=== PATIENT | female | born 1945 | race Caucasian/White ===

== ENCOUNTER 2016-11-16 12:12 | Emergency (ER) | payer MEDICARE ==
[~2016-11-16] VITALS: Wt 147.9 kg
[~2016-11-16 12:12] MED LIST: AMBIEN5 MG PO; AMITRIPTYLINE25 MG PO; COUMADIN PO; Coumadin10 MG PO; ELAVIL25 MG PO; HYDROCHLOROTHIA25 MG PO; LEVOFLOXACIN500 MG PO; LISINOPRIL HCTZ1 TA1 PO; LISINOPRIL20 MG PO; MIRAPEX PO; MIRAPEX0.125 MG PO; MOTRIN800 MG PO; NEURONTIN300 MG PO; NEURONTIN600 MG PO; NEXIUM40 MG PO; NORCO 325 MG-51 TAB PO; NORVASC2.5 MG PO; PERCOCET 325 MG1 TA2 PO; PERCOCET 325 MG1 TA7 PO; PERCOCET 500 MG1 TAB PO; PROTONIX TR40 MG PO; SEPTRA DS 800 M1 TAB PO; TOPROL XL50 MG PO; VICODIN 500 MG-1 TAB PO
[2016-11-16] MEDS ORDERED: ELIQUIS5 M1 PO (12:16)
[2016-11-16 13:09] LABS: BASO % 0.3 % (0.0-1.0); EOS # 0.1 10*3/uL (0.0-0.4); HEMATOCRIT 45.6 % (37.0-47.0); HEMOGLOBIN 14.3 g/dl (12.0-16.0); IG # 0.1 10*3/uL (0.0-0.1); LYMPH # 1.9 10*3/uL (1.3-4.4); LYMPH % 16.5 % (27.0-41.0); MEAN CORPUSCULAR HGB 28.5 pg (27.0-31.0); MEAN CORPUSCULAR HGB CONC 31.4 g/dl (33.0-37.0); MEAN PLATELET VOLUME 9.3 fl (9.6-12.3); MONO % 8.7 % (3.0-9.0); NEUT # 8.3 10*3/uL (2.3-7.9); NEUT % 73.1 % (47.0-73.0); PLATELET COUNT AUTOMATED 208 10*3/uL (130-400); RED BLOOD COUNT 5.01 10*6/uL (4.10-5.10); RED CELL DISTRI WIDTH 15.2 % (0-14.5); WHITE BLOOD COUNT 11.4 10*3/uL (4.8-10.8)
[2016-11-16 15:16] VITALS: BP 157/91
[2016-11-16 15:18] LABS: BUN 26 mg/dl (7-24); CARBON DIOXIDE 27 mmol/L (21-32); CHLORIDE 109 mmol/L (98-107); EST GLOM FILT AFRICAN AMERICAN > 60 ml/min; GLUCOSE 91 mg/dL (65-99); POTASSIUM 3.7 mmol/L (3.5-5.1); SODIUM 144 mmol/L (136-145)
== END 2016-11-16 17:35 | disposition home or self-care (01) ==
LOC: ED 12:12
PROVIDERS: Emergency Medicine
DX: S20.219A Contusion of unspecified front wall of thorax, initial encounter (principal); S50.12XA Contusion of left forearm, initial encounter; S80.02XA Contusion of left knee, initial encounter; N17.9 Acute kidney failure, unspecified; Z91.041 Radiographic dye allergy status; Z79.01 Long term (current) use of anticoagulants; W18.09XA Striking against other object with subsequent fall, initial encounter; Y93.89 Activity, other specified; Y92.61 Building [any] under construction as the place of occurrence of the external cause; Y99.0 Civilian activity done for income or pay

== ENCOUNTER → 2017-10-01 | Outpatient (CLI) | payer MEDICARE ==
[~2017-10-01] MED LIST changes: +ELIQUIS5 M1 PO
== END | disposition home or self-care (01) ==
LOC: MAMMO 12:42
DX: C50.911 Malignant neoplasm of unspecified site of right female breast (principal); R92.8 Other abnormal and inconclusive findings on diagnostic imaging of breast

== ENCOUNTER 2017-10-29 11:04 | Inpatient (IN) | payer MEDICARE ==
[~2017-10-29] VITALS: Ht 165.1 cm; Wt 138.9 kg
[2017-10-29 11:07] VITALS: BP 151/73
[2017-10-29 11:28] LABS: BASO % 0.4 % (0.0-1.0); EOS # 0.2 10*3/uL (0.0-0.4); EOS % 2.7 % (1.0-4.0); HEMATOCRIT 45.5 % (37.0-47.0); HEMOGLOBIN 14.3 g/dl (12.0-16.0); LYMPH # 2.4 10*3/uL (1.3-4.4); LYMPH % 32.7 % (27.0-41.0); MEAN CELL VOLUME 90.6 fl (81.0-99.0); MEAN CORPUSCULAR HGB 28.5 pg (27.0-31.0); MEAN CORPUSCULAR HGB CONC 31.4 g/dl (33.0-37.0); MEAN PLATELET VOLUME 8.8 fl (9.6-12.3); MONO # 0.7 10*3/uL (0.1-1.0); MONO % 8.9 % (3.0-9.0); NEUT # 4.1 10*3/uL (2.3-7.9); PLATELET COUNT AUTOMATED 252 10*3/uL (130-400); RED BLOOD COUNT 5.02 10*6/uL (4.10-5.10); RED CELL DISTRI WIDTH 15.5 % (0-14.5); WHITE BLOOD COUNT 7.4 10*3/uL (4.8-10.8)
[2017-10-29 11:42] LABS: ALBUMIN 3.3 gm/dl (3.1-4.5); ALKALINE PHOSPHATASE 75 U/L (45-117); BUN 18 mg/dl (7-24); CHLORIDE 106 mmol/L (98-107); CREATININE 0.89 mg/dL (0.55-1.02); POTASSIUM 3.6 mmol/L (3.5-5.1); SGOT/AST 19 IU/L (3-35); SGPT/ALT 17 U/L (12-78); SODIUM 140 mmol/L (136-145); TOTAL PROTEIN 7.5 gm/dL (6.4-8.2); URIC ACID 6.8 mg/dL (2.6-6.0)
[2017-10-29 12:00] VITALS: BP 157/85
[2017-10-29 12:50] VITALS: BP 175/88
[2017-10-29 13:30] VITALS: BP 166/90
[2017-10-29] MEDS ORDERED: LORAZEPAM1 MG PO (13:42)
[2017-10-29 16:00] VITALS: BP 166/89
[2017-10-29 20:00] VITALS: BP 134/62
[2017-10-30] VITALS: BP 116/74
[2017-10-30 06:20] LABS: BASO % 0.3 % (0.0-1.0); EOS # 0.3 10*3/uL (0.0-0.4); EOS % 2.9 % (1.0-4.0); HEMOGLOBIN 13.3 g/dl (12.0-16.0); LYMPH # 2.1 10*3/uL (1.3-4.4); LYMPH % 23.7 % (27.0-41.0); MEAN CELL VOLUME 91.5 fl (81.0-99.0); MEAN CORPUSCULAR HGB 28.3 pg (27.0-31.0); MEAN CORPUSCULAR HGB CONC 30.9 g/dl (33.0-37.0); MEAN PLATELET VOLUME 9.1 fl (9.6-12.3); MONO # 0.8 10*3/uL (0.1-1.0); MONO % 8.8 % (3.0-9.0); NEUT # 5.6 10*3/uL (2.3-7.9); NEUT % 64.1 % (47.0-73.0); PLATELET COUNT AUTOMATED 230 10*3/uL (130-400); RED CELL DISTRI WIDTH 15.6 % (0-14.5); WHITE BLOOD COUNT 8.7 10*3/uL (4.8-10.8)
[2017-10-30 06:51] LABS: ALBUMIN 3.1 gm/dl (3.1-4.5); ALKALINE PHOSPHATASE 64 U/L (45-117); BUN 23 mg/dl (7-24); CHLORIDE 105 mmol/L (98-107); CHOLESTEROL 162 mg/dL (<200); CREATININE 0.95 mg/dL (0.55-1.02); FREE T4 1.25 ng/dl (0.76-1.46); HDL CHOLESTEROL 52 mg/dl (40-60); LDL CHOLESTEROL 90 mg/dL (9-159); PHOSPHOROUS 3.9 mg/dL (2.5-4.9); POTASSIUM 3.7 mmol/L (3.5-5.1); SGOT/AST 15 IU/L (3-35); SGPT/ALT 13 U/L (12-78); SODIUM 140 mmol/L (136-145); TOTAL PROTEIN 6.9 gm/dL (6.4-8.2); TRIGLYCERIDES 100 mg/dl (<150); VLDL CHOLESTEROL 20 mg/dL (6-40)
[2017-10-30 06:52] LABS: ACT PARTIAL THROMBO TIME 25.4 SECONDS (20.8-31.5); INTERNATIONAL NORM RATIO 1.1 (2.0-3.5)
[2017-10-30 07:59] LABS: VITAMIN D, 25-HYDROXY 6.8 ng/mL (30-100)
[2017-10-30 08:00] VITALS: BP 115/64
[2017-10-30 12:00] VITALS: BP 108/54; BP 116/66
[2017-10-30 16:00] VITALS: BP 117/35
[2017-10-30 20:00] VITALS: BP 133/98
[2017-10-31] VITALS: BP 113/55
[2017-10-31 08:00] VITALS: BP 111/66
[2017-10-31 12:00] VITALS: BP 110/62
[2017-10-31 16:00] VITALS: BP 133/81
[2017-10-31 20:00] VITALS: BP 111/52
[2017-11-01] VITALS: BP 97/58
[2017-11-01 08:00] VITALS: BP 106/53; BP 122/49
[2017-11-01] MEDS ORDERED: VITAMIN D50000 UNIT PO (12:03)
== END 2017-11-01 13:15 | disposition home or self-care (01) | DRG 556 ==
LOC: ED 11:04 → EDHOLD 12:43 → 5E 12:43
PROVIDERS: Internal Medicine; Student in an Organized Health Care Education/Training Program
DX: M25.571 Pain in right ankle and joints of right foot (principal); E44.1 Mild protein-calorie malnutrition; I48.0 Paroxysmal atrial fibrillation; G62.9 Polyneuropathy, unspecified; E66.01 Morbid (severe) obesity due to excess calories; E79.0 Hyperuricemia without signs of inflammatory arthritis and tophaceous disease; F41.9 Anxiety disorder, unspecified; Z68.43 Body mass index [BMI] 50.0-59.9, adult; G25.81 Restless legs syndrome; R26.2 Difficulty in walking, not elsewhere classified; K44.9 Diaphragmatic hernia without obstruction or gangrene; I10 Essential (primary) hypertension; G89.29 Other chronic pain; M54.42 Lumbago with sciatica, left side; M54.41 Lumbago with sciatica, right side; Z85.3 Personal history of malignant neoplasm of breast; Z96.653 Presence of artificial knee joint, bilateral; Z90.49 Acquired absence of other specified parts of digestive tract; Z90.11 Acquired absence of right breast and nipple; Z83.6 Family history of other diseases of the respiratory system; Z83.79 Family history of other diseases of the digestive system; Z91.041 Radiographic dye allergy status; Z79.899 Other long term (current) drug therapy

== ENCOUNTER 2018-08-21 00:46 | Inpatient (IN) | payer OTHER ==
[~2018-08-21] VITALS: Ht 162.5 cm; Wt 147.9 kg
[2018-08-21] VITALS (8 sets, daily range): BP systolic 117–151; BP diastolic 58–78
--- NOTE | ~2018-08-21 | EKG ---
[place], [place] ELECTROCARDIOGRAM REPORT NAME: BEVERLY AGRAWAL UNIT #: [id number] ROOM: 419 DOCTOR: LAMIN DRAFT REPORT BIRTHDATE: [birth year] [facility] Test Date: 2018-08-21 Test Time: 01:29:27 Pat Name: BEVERLY AGRAWAL Department: Room: 419 Gender: F Improvement Auditor: Saad La : 1945 Requested By: CHING GARCIA Order Number: [id number] Reading MD: Marie Oliver MD Measurements Intervals [place] Rate: 89 P: [place]: QRS: 24 QRSD: 74 T: 44 QT: 351 QTc: 428 Interpretive Statements Atrial fibrillation Baseline wander in lead(s) III,aVL,aVF Electronically Signed On 08-23-2018 4:49:37 PST by Marie Oliver MD CM:EKGRPT:ELECTROCARDIOGRAM REPORT [id number] CHING BLACK DRAFT REPORT CHING GARCIA DO
[~2018-08-21 00:46] MED LIST changes: +LORAZEPAM1 MG PO; +VITAMIN D50000 UNIT PO
[2018-08-21 01:20] LABS: BILIRUBIN NEGATIVE (NEGATIVE); BLOOD NEGATIVE (NEGATIVE); CLARITY CLEAR (CLEAR); COLOR YELLOW (YELLOW); GLUCOSE NEGATIVE (NEGATIVE); KETONE NEGATIVE (NEGATIVE); LEUKO ESTERASE NEGATIVE (NEGATIVE); NITRITE NEGATIVE (NEGATIVE); SPECIFIC GRAVITY 1.025 (1.005-1.030); UROBILINOGEN 0.2 E.U./dl (0.2-1.0)
[2018-08-21] MEDS ORDERED: OMEPRAZOLE40 MG PO (01:31)
[2018-08-21 01:33] LABS: RBC 0-2 rbc/hpf (0-2)
[2018-08-21 01:56] LABS: BASO % 0.3 % (0.0-1.0); EOS # 0.2 10*3/uL (0.0-0.4); EOS % 1.6 % (1.0-4.0); HEMATOCRIT 40.4 % (37.0-47.0); LYMPH # 2.1 10*3/uL (1.3-4.4); LYMPH % 20.8 % (27.0-41.0); MEAN CELL VOLUME 88.2 fl (81.0-99.0); MEAN CORPUSCULAR HGB 26.2 pg (27.0-31.0); MEAN CORPUSCULAR HGB CONC 29.7 g/dl (33.0-37.0); MEAN PLATELET VOLUME 8.7 fl (9.6-12.3); MONO # 0.9 10*3/uL (0.1-1.0); MONO % 8.8 % (3.0-9.0); NEUT # 6.9 10*3/uL (2.3-7.9); NEUT % 68.2 % (47.0-73.0); PLATELET COUNT AUTOMATED 266 10*3/uL (130-400); RED BLOOD COUNT 4.58 10*6/uL (4.10-5.10); RED CELL DISTRI WIDTH 15.9 % (0-14.5); WHITE BLOOD COUNT 10.1 10*3/uL (4.8-10.8)
--- NOTE | 2018-08-21 02:00 | NUR ---
PHOTOS TAKEN OF RIGHT AND LEFT ABDOMINAL FOLDS(PANNUS) NOTED TO HAVE FUNGAL RASH WITH OPEN AREAS.PHOTOS ALSO TAKEN OF RIGHT AND LEFT BUTTOCKS AREA NOTED TO HAVE STAGE 2 PRESSURE ULCERS. PT C/O RIGHT LOWER BACK PAIN WHILE REPOSITIONING, PT NOTED TO HAVE HX OF CHRONIC BACK PAIN AND STATES SHE HAS NOT TAKEN HER PERCOCET MEDICATION FOR A COUPLE DAYS.
[2018-08-21 02:13] LABS: ALBUMIN 3.2 gm/dl (3.1-4.5); ALKALINE PHOSPHATASE 71 U/L (45-117); BUN 15 mg/dl (7-24); CHLORIDE 107 mmol/L (98-107); CREATININE 1.03 mg/dL (0.55-1.02); POTASSIUM 4.3 mmol/L (3.5-5.1); SGOT/AST 22 IU/L (3-35); SGPT/ALT 20 U/L (12-78); SODIUM 145 mmol/L (136-145); TOTAL PROTEIN 6.9 gm/dL (6.4-8.2)
[2018-08-21 02:14] LABS: TROPONIN I < 0.015 ng/ml (<0.045)
--- NOTE | 2018-08-21 03:35 | NUR ---
A 73, admitted to , under the services of PEPE Calero DO with a diagnosis of ALTERED MENTAL STATUS. Chief complaint is CHANGE IN MENTAL STATUS. Patient arrived via bed from ER. Monitor applied. Initial assessment completed. Vital signs taken and recorded. PEPE CALERO DO notified of admission to the unit. Orders received. See assessment for past medical history, medications and allergies. Patient and/or family oriented to unit. [facility] visitation policy reviewed. Clothing/patient valuable form completed. CAMERON TINSLEY
--- NOTE | 2018-08-21 04:30 | NUR ---
NOTIFIED PHYSICIAN THAT PT MED REC IS UP TO DATE AND THAT PT HAS WOUNDS AND NEEDS WOUND ORDERS. AWAITING NEW ORDERS AT THIS TIME.
[2018-08-21 04:48] LABS: FREE T4 0.94 ng/dl (0.76-1.46)
[2018-08-21 04:53] LABS: THYROID STIM HORMONE (HS) 2.33 uIU/ml (0.358-4.75)
--- NOTE | 2018-08-21 06:50 | NUR ---
NOTIIFIED DR GEORGE THAT PT IS CRYING OUT IN PAIN. NEW ORDERS RECEIVED FOR 0.5 MG DILAUDID X1 NOW. WILL GIVE MEDICATION WHEN READY TO PULL FROM [facility].
[2018-08-21 07:57] LABS: VITAMIN D, 25-HYDROXY 8.9 ng/mL (30-100)
--- NOTE | 2018-08-21 15:00 | NUR ---
PT MEDICATED WITH PRN PERCOCET FOR C/O RIGHT HIP AND BACK PAIN THAT SHE RATES 05/19. JULIENNE LREACCESS.
--- NOTE | 2018-08-21 15:45 | NUR ---
PRN PERCOCET EFFECTIVE. PT RESTING IN BED WITH EYES CLOSED.
--- NOTE | 2018-08-21 20:02 | NUR ---
PT SITTING UP IN CHAIR BESIDE BED, ALERT ORIENTED AND PLEASANT WITH STAFF. ASSESSMENT COMPLETE REVEALING NO NEW ABNORMALITIES. SUPPLEMENTAL OXYGEN IN PLACE VIA NC AT 2L. NO C/O SOB. RESPIATIONS EASY. ALL NEEDS MET AT THIS TIME. WILL CONTINUE TO MONITOR. CALL LIGHT IN REACH.
--- NOTE | 2018-08-21 20:28 | NUR ---
PT REQUEST DOSAGE CHANGE FOR PERCOCET ORDER. PT STATES THAT SHE TAKES 10-325 MG AT HOME INSTEAD OF 7.5-325 MG. PHYSICIAN NOTIFIED. NEW ORDERS RECEIVED AT THIS TIME.
--- NOTE | 2018-08-21 20:40 | NUR ---
PT GIVEN PERCOCET 5-325 MG 2 TABLETS AT THIS TIME FOR BACK PAIN. WILL MONITOR FOR EFFECTIVENESS. CALL LIGHT IN REACH.
[2018-08-22] VITALS: BP 116/63
--- NOTE | 2018-08-22 00:48 | NUR ---
PT C/O BACK PAIN AT THIS TIME, RATES IT 04/19, CALLING OUT IN PAIN. 2 PERCOCET 5-325 MG TABLETS ADMINISTERED PER ORDER. WILL MONITOR FOR EFFECTIVENESS.
--- NOTE | 2018-08-22 01:48 | NUR ---
PERCOCET EFFECTIVE AT THIS TIME.
--- NOTE | 2018-08-22 05:33 | NUR ---
PT AWAKE FOR AM MEDS, PT C/O BODY ACHES, RATES IT 04/19. PERCOCET 5-325 MG (2 TABLETS) GIVEN AT THIS TIME. WILL MONITOR FOR EFFECTIVENESS. PT RESTING IN BED, ALL SAFETY MEASURES IN PLACE. CALL LIGHT IN REACH.
[2018-08-22 07:13] LABS: BASO % 0.5 % (0.0-1.0); EOS # 0.2 10*3/uL (0.0-0.4); EOS % 3.8 % (1.0-4.0); HEMATOCRIT 38.8 % (37.0-47.0); HEMOGLOBIN 10.8 g/dl (12.0-16.0); LYMPH # 1.8 10*3/uL (1.3-4.4); MEAN CELL VOLUME 90.2 fl (81.0-99.0); MEAN CORPUSCULAR HGB 25.1 pg (27.0-31.0); MEAN CORPUSCULAR HGB CONC 27.8 g/dl (33.0-37.0); MEAN PLATELET VOLUME 9.2 fl (9.6-12.3); MONO # 0.7 10*3/uL (0.1-1.0); MONO % 11.6 % (3.0-9.0); NEUT # 3.3 10*3/uL (2.3-7.9); NEUT % 54.8 % (47.0-73.0); PLATELET COUNT AUTOMATED 224 10*3/uL (130-400); RED CELL DISTRI WIDTH 16.1 % (0-14.5)
[2018-08-22 07:36] LABS: ALBUMIN 2.6 gm/dl (3.1-4.5); BUN 12 mg/dl (7-24); CHLORIDE 107 mmol/L (98-107); POTASSIUM 4.3 mmol/L (3.5-5.1); SODIUM 138 mmol/L (136-145)
[2018-08-22 07:41] LABS: ALKALINE PHOSPHATASE 64 U/L (45-117); CREATININE 0.94 mg/dL (0.55-1.02); PHOSPHOROUS 3.1 mg/dL (2.5-4.9); SGOT/AST 22 IU/L (3-35); SGPT/ALT 17 U/L (12-78); TOTAL PROTEIN 6.7 gm/dL (6.4-8.2)
[2018-08-22 08:00] VITALS: BP 118/68
--- NOTE | 2018-08-22 10:30 | NUR ---
PT MEDICATED WITH PRN PERCOCET FOR C/O RTIGHT HIP PAIN THAT SHE RATES 05/19. WILL REACCESS.
--- NOTE | 2018-08-22 11:30 | NUR ---
PRN PERCOCET EFFECTIVE PER PT. UP IN CHAIR AT PRESENT TIME.
[2018-08-22 12:00] VITALS: BP 118/73
--- NOTE | 2018-08-22 13:50 | NUR ---
PHYSICAL THERAPY PT EVAL COMPLETED TODAY ON LEVEL 4: FULL EVALUATION TO FOLLOW. RECOMMEND SKILLED PT WHILE HERE TO ADDRESS DECREASED STRENGTH, ENDURANCE, BALANCE AND THUS FUNCTIONAL MOBILTIY. PT EVAL IS MODERATE COMPLEXITY BASED ON CHART REVIEW, TEST RESULTS AND EVALUATION: 25414. D/C RECOMMENDATIONS ARE TO RETURN TO HOME WITH FAMILY SUPPORT AND HOME PT SERVICES.STATES SHE WILL NOT GO TO SNF SHE HAS SUPPORT SHE NEEDS AT HOME. THANK YOU FOR REFERRAL ADRIAN CELAYA PT
--- NOTE | 2018-08-22 14:06 | NUR ---
PT MEDICATED WITH PO PERCOCET PER PRN ORDER FOR C/O BACK AND FOOT PAIN. WILL MONITOR EFFECTIVENESS. CALL LIGHT WITHIN REACH.
--- NOTE | 2018-08-22 14:30 | NUR ---
PRN PERCECET GIVEN FOR RIGHT HIP PAIN. RATES 04/19. WILL REACCESS.
--- NOTE | 2018-08-22 15:15 | NUR ---
PRN PERCOCET EFFECTIVE PER PT.
[2018-08-22 16:00] VITALS: BP 122/66
--- NOTE | 2018-08-22 18:38 | NUR ---
PRN PERCOCET GIVEN AT THIS TIME FOR C/O BACK AND RIGHT HIP PAIN. 04/19. WILL REACCESS.
[2018-08-22 20:00] VITALS: BP 128/69
--- NOTE | 2018-08-22 20:06 | NUR ---
1929 PERCOCET EFFECTIVE. RESTING IN BED WITH HOB ELEVATED. SIDE RAILS UP X'S 2. JOSE M HEP LOCK INTACT. NO DISTRESS NOTED. 02 INTACT. PULSE OX 95%. ALERT AT PRESENT.
--- NOTE | 2018-08-22 20:53 | NUR ---
2049 C/O R SHOULDER PAIN. TOO EARLY FOR PERCOCET. TYLENOL 2 PO GIVEN FOR THIS AND ROUTINE ATIVAN. WILL MONITOR.
--- NOTE | 2018-08-22 22:05 | NUR ---
EARLIER MEDS EFFECTIVE. RESTING IN BED WITH EYES CLOSED. APPEARS TO BE SLEEPING.
--- NOTE | 2018-08-22 23:00 | NUR ---
ASSUMED CARE FOR THIS PATIENT AT THIS TIME. PATIENT IS SLEEPING AT THIS TIME. RESPERS EASY. BED LOCKED IN LOWEST POSITION, CALL ALLEN WITHIN REACH. WILL MONITOR.
[2018-08-23] VITALS: BP 137/78
--- NOTE | 2018-08-23 00:51 | NUR ---
24 HR chart check completed.
[2018-08-23 05:45] LABS: BASO % 0.3 % (0.0-1.0); EOS # 0.3 10*3/uL (0.0-0.4); EOS % 4.5 % (1.0-4.0); HEMATOCRIT 35.6 % (37.0-47.0); HEMOGLOBIN 10.4 g/dl (12.0-16.0); LYMPH # 1.6 10*3/uL (1.3-4.4); LYMPH % 26.7 % (27.0-41.0); MEAN CELL VOLUME 88.8 fl (81.0-99.0); MEAN CORPUSCULAR HGB 25.9 pg (27.0-31.0); MEAN CORPUSCULAR HGB CONC 29.2 g/dl (33.0-37.0); MEAN PLATELET VOLUME 9.3 fl (9.6-12.3); MONO # 0.8 10*3/uL (0.1-1.0); MONO % 12.8 % (3.0-9.0); NEUT # 3.3 10*3/uL (2.3-7.9); NEUT % 55.5 % (47.0-73.0); PLATELET COUNT AUTOMATED 230 10*3/uL (130-400); RED BLOOD COUNT 4.01 10*6/uL (4.10-5.10)
[2018-08-23 05:51] LABS: ALBUMIN 2.4 gm/dl (3.1-4.5); ALKALINE PHOSPHATASE 59 U/L (45-117); BUN 15 mg/dl (7-24); CHLORIDE 105 mmol/L (98-107); CREATININE 0.99 mg/dL (0.55-1.02); POTASSIUM 4.6 mmol/L (3.5-5.1); SGOT/AST 17 IU/L (3-35); SGPT/ALT 15 U/L (12-78); SODIUM 138 mmol/L (136-145); TOTAL PROTEIN 6.4 gm/dL (6.4-8.2)
--- NOTE | 2018-08-23 07:34 | NUR ---
PATIENT MEDICATED WITH PERCOCET AT THIS TIME FOR COMPLAINTS OF BACK & RIGHT SHOULDER PAIN. WILL MONITOR FOR EFFECTIVENESS.
[2018-08-23 08:00] VITALS: BP 118/64
--- NOTE | 2018-08-23 09:00 | NUR ---
Commutator Repairer in to talk to patient. Patient states lives at home with son. There are no steps in the home. Physician: marilyn Pharmacy: Home health services: none Patient's level of ADLs: MINIMAL ASSIST Patient has working utilities: all working DME: walker Follow-up physician's appointment after d/c: will be made by hospitalist nurse director upon discharge Does patient want to access PORTAL?: no Discharge plan discussed with patient, patient lives at home with son, she stated she is slow to get around, discussed with her a short term halfway for rehab prior to going home and patient declined, she stated she had been in a skilled facility in the past and didn't want to go back, patient wasn't sure she wanted any VNA at this time, case managment will follow. NAZANIN MORAN
--- NOTE | 2018-08-23 09:38 | NUR ---
PHYSICAL THERAPY Patient presented to therapy in supine with head of bed elevated and report of no complaints at this time. Patient agrees to therapy session. Patient was identified by name and . Patient performed supine to sitting at EOB with MIN A X 1. Patient performed STS with CGA X 1. Patient ambulated with W/W and CGA X 1 for 48' x 1 with verbal cues for upright posture. Patient performed seated ther ex to the bilateral LEs 2 x 10 reps each in all planes of movment in order to improve bilateral LE strength to improve patient's functional mobility. Patient performed was left in sitting position with tray table in front of patietn, call light within reach, and chair alarm attached to patient. Patient was 1:1 with this WIRE LOOP MACHINE OPERATOR for 23 minutes total. MARSHA SMITH WIRE LOOP MACHINE OPERATOR
[2018-08-23] MEDS ORDERED: VITAMIN D5000 UNI1 PO (11:35)
[2018-08-23] MEDS ORDERED: LEVAQUIN750 M1 PO (11:35)
--- NOTE | 2018-08-23 12:52 | NUR ---
Occupational Therapy referral cancelled this date. Case management phoned OTR to also cancel need for referral. Teri Aggarwal OTR/l
--- NOTE | 2018-08-23 12:55 | NUR ---
BEVERLY AGRAWAL [id number] Please refer to the physician's history and physical for past medical history, comorbid conditions, and allergies. Diagnosis: ALTERED MENTAL STATE Adelso Score: 15,AT RISK WOUND DESCRIPTIONS: Patient right and left buttocks is red and blanchable at this time. No open areas noted. Patient has satellite lesion located to abdominal folds. Foul odor noted. Patient has several partial thickness areas located to abdominal folds. Patient has two intact scabs located to abdomen patient state her dog did this to her. No drainage at time of assessment. Surface the patient is resting on: Isoflex SKIN PREVENTION RECOMMENDATION: 1. Pressure redistribution support surface as appropriate 2. Elevate heels 3. Remove boots/TEDS every shift and reapply 4. Head of bed 30 degrees as tolerated 5. Assess nutrition and hydration 6. Manage moisture 7. Avoid the use of containment devices while in bed 8. Use absorptive products on surfaces limit layers of linens on bed 9. Turn and reposition every 1-2 hours in bed and every 1 hour in chair as tolerated 10. Weight shifts every 15 minutes while up in chair 11. Offloading with pillows or device to keep heels elevated off bed 12. Monitor skin at least every shift 13. Inspect under medical devices twice a day WOUND TREATMENT RECOMMENDATIONS: Cleanse right and left buttocks with soap and water and apply hydraguard every shift and prn for soiling. Wheelchair cushion when oob. Recommend follow up for wound care in outpatient setting patient refused at this time. Cleanse abdominal folds with soap and water pat area dry then apply nystatin powder every 8 hours.
--- NOTE | 2018-08-23 13:05 | NUR ---
PATIENT REFUSING WOUND PHOTOGRAPH BECAUSE SHE IS ALREADY DRESSED.
--- NOTE | 2018-08-23 13:09 | NUR ---
Discharge instructions reviewed with patient/family. Patient receptive and verbalizes understanding. Follow-up care arranged. Written instructions given to patient/family. HEPLOCK DISCONTINUED. PICKED UP BY SON & DISCHARGED VIA WHEELCHAIR. IKER ACUÑA
--- NOTE | 2018-08-23 13:38 | NUR ---
Dr. Gauthier notified of wound care recommendations. He stated patient was already discharged.
--- NOTE | 2018-08-23 13:49 | NUR ---
PHYSICAL THERAPY CO-SIGN I approve of the Phyical Therapy notes written above. YAYA REYES PT
--- NOTE | 2018-08-23 15:00 | NUR ---
[facility] notified that patient was discharged to home today
== END 2018-08-23 13:09 | disposition home or self-care (01) | DRG 871 ==
LOC: ED 00:46 → 4E 02:53 → EDHOLD 02:53 → 4E 03:12
PROVIDERS: Emergency Medicine; Family Medicine; Internal Medicine; ADMIT Internal Medicine
DX: A41.9 Sepsis, unspecified organism (principal); G93.41 Metabolic encephalopathy; N17.0 Acute kidney failure with tubular necrosis; J18.1 Lobar pneumonia, unspecified organism; Z68.43 Body mass index [BMI] 50.0-59.9, adult; K52.9 Noninfective gastroenteritis and colitis, unspecified; R65.20 Severe sepsis without septic shock; Z91.041 Radiographic dye allergy status; F41.9 Anxiety disorder, unspecified; G89.29 Other chronic pain; M54.9 Dorsalgia, unspecified; I10 Essential (primary) hypertension; E66.01 Morbid (severe) obesity due to excess calories; G25.81 Restless legs syndrome; Z90.49 Acquired absence of other specified parts of digestive tract; Z96.653 Presence of artificial knee joint, bilateral; Z90.11 Acquired absence of right breast and nipple; Z82.3 Family history of stroke; Z84.89 Family history of other specified conditions; R73.9 Hyperglycemia, unspecified; I48.2 Chronic atrial fibrillation; K44.9 Diaphragmatic hernia without obstruction or gangrene; E55.9 Vitamin D deficiency, unspecified; G62.9 Polyneuropathy, unspecified; K57.30 Diverticulosis of large intestine without perforation or abscess without bleeding

== ENCOUNTER 2019-04-07 16:53 | Inpatient (IN) | payer OTHER ==
[~2019-04-07] VITALS: Ht 162.5 cm; Wt 147.6 kg
--- NOTE | ~2019-04-07 | EKG ---
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
--- NOTE | ~2019-04-07 | EKG ---
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
--- NOTE | ~2019-04-07 | EKG ---
[place], [place] ELECTROCARDIOGRAM REPORT NAME: BEVERLY AGRAWAL UNIT #: [id number] ROOM: 506 DOCTOR: LAMIN DRAFT REPORT BIRTHDATE: [birth year] [facility] Test Date: 2019-04-07 Test Time: 17:02:47 Pat Name: BEVERLY AGRAWAL Department: Room: 506 Gender: F Dressage Instructor: : 1945 Requested By: MONSERRAT KOCH Order Number: [id number] Reading MD: Cameron Olsen MD Measurements Intervals [place] Rate: 88 P: 52 FL: 160 QRS: 22 QRSD: 79 T: 39 QT: 378 QTc: 458 Interpretive Statements Sinus rhythm with premature atrial complex Compared to ECG 08/21/2018 01:29:27 Atrial fibrillation no longer present Electronically Signed On 04-08-2019 5:07:53 PDT by Cameron Olsen MD CM:EKGRPT:ELECTROCARDIOGRAM REPORT [id number] MONSERRAT KIMBLE DRAFT REPORT MONSERRAT KOCH MD
[2019-04-07 16:53] VITALS: BP 169/85
[~2019-04-07 16:53] MED LIST changes: +LEVAQUIN750 M1 PO; +OMEPRAZOLE40 MG PO; +VITAMIN D5000 UNI1 PO
[2019-04-07 17:20] LABS: BASO % 0.5 % (0.0-1.0); EOS # 0.3 10*3/uL (0.0-0.4); EOS % 3.7 % (1.0-4.0); HEMATOCRIT 38.1 % (37.0-47.0); HEMOGLOBIN 10.5 g/dl (12.0-16.0); LYMPH # 2.7 10*3/uL (1.3-4.4); LYMPH % 36.2 % (27.0-41.0); MEAN CELL VOLUME 86.4 fl (81.0-99.0); MEAN CORPUSCULAR HGB 23.8 pg (27.0-31.0); MEAN CORPUSCULAR HGB CONC 27.6 g/dl (33.0-37.0); MEAN PLATELET VOLUME 8.8 fl (9.6-12.3); MONO # 0.9 10*3/uL (0.1-1.0); MONO % 12.4 % (3.0-9.0); NEUT # 3.5 10*3/uL (2.3-7.9); NEUT % 46.9 % (47.0-73.0); PLATELET COUNT AUTOMATED 308 10*3/uL (130-400); RED BLOOD COUNT 4.41 10*6/uL (4.10-5.10); RED CELL DISTRI WIDTH 17.2 % (0-14.5); WHITE BLOOD COUNT 7.5 10*3/uL (4.8-10.8)
[2019-04-07 17:33] LABS: ACT PARTIAL THROMBO TIME 25.4 SECONDS (20.0-32.1)
[2019-04-07 17:37] LABS: ALKALINE PHOSPHATASE 63 U/L (45-117); BUN 14 mg/dl (7-24); CHLORIDE 106 mmol/L (98-107); POTASSIUM 3.6 mmol/L (3.5-5.1); SGOT/AST 15 IU/L (3-35); SGPT/ALT 14 U/L (12-78); SODIUM 143 mmol/L (136-145); TOTAL PROTEIN 7.4 gm/dL (6.4-8.2)
[2019-04-07 17:40] LABS: TROPONIN I < 0.015 ng/ml (<0.045)
[2019-04-07 19:40] VITALS: BP 148/91
--- NOTE | 2019-04-07 19:40 | NUR ---
Time: 1937 A 74 year old FEMALE admitted to under services of RAD COATES DO. Pt. arrived via bed from ER. Chief complaint: SHORTNESS OF BREATH. PT ORIENTED TO ROOM & CALL LIGHT. AMBULATED TO BED USING CANE. SHE COMPLAINS OF SHORTNESS OF BREATH AND BACK PAIN AT THIS TIME. 3L NC PLACED ON PATIENT. QUESTIONS ANSWERED. HEALTHY LIFESTYLES GUIDE REVIEWED. BELONGINGS ACCOUNTED FOR. DR. JARRETT IN THE ROOM AT TIME OF ADMISSION. ADMISSION ASSESSMENT COMPLETED - SEE SCREEN. ADELE MARIE
--- NOTE | 2019-04-07 20:22 | NUR ---
PRN ORDER FOR NORCO REQUESTED AND RECIEVED FOR C/O BACK PAIN SHE RATES 8/10. WILL MONITOR FOR EFFECTIVENESS OF MEDICATION
--- NOTE | 2019-04-07 22:00 | NUR ---
NORCO SEEMINGLY EFFECTIVE. PT SLEEPING IN BED WITH NO OBVIOUS SIGNS/SYMPTOMS OF PAIN OR DISCOMFORT. WILL CONTINUE TO MONITOR.
--- NOTE | 2019-04-07 23:20 | NUR ---
Pt started on breathing txs and flutter valve. Encouraged 10 breaths an hour while awake. SpO2 on 3L NC is 92%. Pt states she does not wear O2 at home.
[2019-04-08] VITALS: BP 130/73
--- NOTE | 2019-04-08 00:46 | NUR ---
PT REQUESTED AND RECIEVED [facility]. WILL MONITOR FOR EFFECTIVENESS OF MED.
--- NOTE | 2019-04-08 02:00 | NUR ---
NORCO APPARENTLY EFFECTIVE. PT RESTING WITH NO OBVIOUS SIGNS/SYMPTOMS OF PAIN OR DISCOMFORT. WILL CONTINUE TO MONITOR.
--- NOTE | 2019-04-08 04:36 | NUR ---
PT RESTING IN BED. NO SIGNS/SYMPTOMS OF PAIN OR DISCOMFORT. CALL LIGHT WITHIN REACH. WILL CONTINUE TO MONITOR.
--- NOTE | 2019-04-08 05:05 | NUR ---
PT REQUESTED AND RECIEVED PRN ORDER FOR [place] FOR COMPLAINTS OF 9/10 BACK PAIN. WILL MONITOR FOR EFEFCTIVENESS.
--- NOTE | 2019-04-08 06:46 | NUR ---
NORCO APPARENTLY EFFECTIVE. PT SLEEPING WITH NO SIGNS OF PAIN OR DISCOMFORT. CALL LIGHT WITHIN REACH. WILL CONTINUE TO MONITOR.
[2019-04-08 06:57] LABS: BASO % 0.2 % (0.0-1.0); HEMATOCRIT 36.9 % (37.0-47.0); HEMOGLOBIN 10.5 g/dl (12.0-16.0); LYMPH # 0.6 10*3/uL (1.3-4.4); LYMPH % 9.9 % (27.0-41.0); MEAN CELL VOLUME 84.6 fl (81.0-99.0); MEAN CORPUSCULAR HGB 24.1 pg (27.0-31.0); MEAN CORPUSCULAR HGB CONC 28.5 g/dl (33.0-37.0); MEAN PLATELET VOLUME 10.1 fl (9.6-12.3); MONO # 0.1 10*3/uL (0.1-1.0); MONO % 1.5 % (3.0-9.0); NEUT # 5.3 10*3/uL (2.3-7.9); NEUT % 86.9 % (47.0-73.0); NUCLEATED RED BLOOD CELL 0.5 % (0.0-0.0); PLATELET COUNT AUTOMATED 318 10*3/uL (130-400); RED BLOOD COUNT 4.36 10*6/uL (4.10-5.10); RED CELL DISTRI WIDTH 16.9 % (0-14.5); WHITE BLOOD COUNT 6.1 10*3/uL (4.8-10.8)
[2019-04-08 07:13] LABS: BUN 11 mg/dl (7-24); CHLORIDE 103 mmol/L (98-107); CREATININE 0.98 mg/dL (0.55-1.02); POTASSIUM 3.7 mmol/L (3.5-5.1); SODIUM 138 mmol/L (136-145)
[2019-04-08 07:58] LABS: VITAMIN D, 25-HYDROXY 15.7 ng/mL (30-100)
[2019-04-08 08:00] VITALS: BP 128/60
--- NOTE | 2019-04-08 11:54 | NUR ---
Salon Coordinator in to talk to patient. Patient states lives at HOME with SON. There are NO steps in the home. Physician: MYRANDA [facility]acy: [facility] Home health services: NONE Patient's level of ADLs: INDEPENDENT Patient has working utilities: YES DME: LUZ Follow-up physician's appointment after d/c: WILL BE MADE BY HOSPITALIST NURSE DIRECTOR ON DISCHARGE Does patient want to access PORTAL?: NO Discharge plan PT LIVES AT HOME WITH HER SON AND IS INDEPENDENT IN HER CARE. DENIES THAT SHE WILL HAVE NEEDS ON DISCHARGE. STATES SHE PLANS TO RETURN HOME WITH SON ON DISCHARGE. WILL CONTINUE TO FOLLOW. WILL HAVE A RIDE HOME PER PT.. NELLY PAIZ
[2019-04-08 12:00] VITALS: BP 145/70
--- NOTE | 2019-04-08 15:57 | NUR ---
NOTIFIED DR. SIMMONS THAT PATIENT WAS HAVING SEVERE BACK PAIN AFTER SITTING UP IN THE CHAIR FOR A WHILE AND HER NORCO IS NOT DUE FOR ANOTHER HOUR. DR. SIMMONS STATED SHE WILL PUT AN ORDER IN.
[2019-04-08 16:00] VITALS: BP 144/69
--- NOTE | 2019-04-08 16:16 | NUR ---
PATIENT MEDICATED W/ PRN MORPHINE 2 MG. CALL LIGHT WITHIN REACH. WILL MONITOR EFFECTIVENSS.
--- NOTE | 2019-04-08 17:03 | NUR ---
PATIENT STATED THE PRN MORPHINE HELPED A LITTLE.
--- NOTE | 2019-04-08 18:29 | NUR ---
PATIENT WAS COUGHING WHICH LED TO A SMALL EMESIS OF CLEAR MUCOUS. PRN ZOFRAN GIVEN PER ORDER. ONCE PATIENT CAUGHTER HER BREATH SHE REQUESTED HER PRN NORCO FOR PAIN. WILL MONITOR FOR EFFECTIVENESS.
[2019-04-08 20:00] VITALS: BP 143/72
--- NOTE | 2019-04-08 20:00 | NUR ---
RESTING IN BED; ALERT & ORIENTED. 02 INTACT AT 3LPM VIA NASAL CANNULA. PT. DOES NOT NORMALLY WEAR OXYGEN. LUNGS DIMINISHED BILATERALLY WITH NO COUGH NOTED AT THIS TIME. ABDOMEN OBESE WITH NORMOACTIVE BOWEL SOUNDS. LOWER EXTREMITY EDEMA NOTED. PT. VOICES NO C/O AT THIS TIME. CALL LIGHT WITHIN REACH.
--- NOTE | 2019-04-08 22:32 | NUR ---
MEDICATED WITH NORCO FOR C/O PAIN & RESTORIL FOR C/O INSOMNIA.
[2019-04-09] VITALS: BP 120/60
--- NOTE | 2019-04-09 02:00 | NUR ---
RESTING IN BED WITH EYES CLOSED; MEDICATIONS GIVEN EARLIER APPARENTLY EFFECTIVE.
--- NOTE | 2019-04-09 06:02 | NUR ---
MEDICATED WITH NORCO FOR C/O BACK PAIN & CHEST PAIN FROM COUGHING RATED AN 8/10.
[2019-04-09 06:32] LABS: BUN 20 mg/dl (7-24); CHLORIDE 105 mmol/L (98-107); CREATININE 0.96 mg/dL (0.55-1.02); POTASSIUM 4.4 mmol/L (3.5-5.1); SODIUM 140 mmol/L (136-145)
[2019-04-09 06:52] LABS: BASO % 0.1 % (0.0-1.0); HEMATOCRIT 34.9 % (37.0-47.0); HEMOGLOBIN 9.6 g/dl (12.0-16.0); LYMPH # 0.6 10*3/uL (1.3-4.4); LYMPH % 6.8 % (27.0-41.0); MEAN CELL VOLUME 85.7 fl (81.0-99.0); MEAN CORPUSCULAR HGB 23.6 pg (27.0-31.0); MEAN CORPUSCULAR HGB CONC 27.5 g/dl (33.0-37.0); MEAN PLATELET VOLUME 9.8 fl (9.6-12.3); MONO # 0.4 10*3/uL (0.1-1.0); MONO % 4.3 % (3.0-9.0); NEUT # 8.1 10*3/uL (2.3-7.9); NEUT % 88.2 % (47.0-73.0); NUCLEATED RED BLOOD CELL 0.2 % (0.0-0.0); PLATELET COUNT AUTOMATED 300 10*3/uL (130-400); RED BLOOD COUNT 4.07 10*6/uL (4.10-5.10); RED CELL DISTRI WIDTH 16.9 % (0-14.5); WHITE BLOOD COUNT 9.2 10*3/uL (4.8-10.8)
[2019-04-09 08:00] VITALS: BP 125/54
[2019-04-09 12:00] VITALS: BP 115/65
--- NOTE | 2019-04-09 12:42 | NUR ---
NORCO GIVEN FOR C/O BACK PAIN, RATES 8/10 ON PAIN SCALE. WILL MONITOR.
--- NOTE | 2019-04-09 13:46 | NUR ---
ZELALEM EFFECTIVE PER PT.
[2019-04-09 16:00] VITALS: BP 134/88
--- NOTE | 2019-04-09 16:46 | NUR ---
MOM GIVEN FOR C/O CONSTIPATION. WILL MONITOR.
[2019-04-09 20:00] VITALS: BP 150/67
--- NOTE | 2019-04-09 20:15 | NUR ---
RESTING IN BED WITH HOB SLIGHTLY ELEVATED. 02 INTACT. PULSE OX 99% ON ROOM AIR. PT. VOICES NO C/O AT THIS TIME. NO DISTRESS NOTED. CALL LIGHT WITHIN REACH.
[2019-04-10] VITALS: BP 158/69
--- NOTE | 2019-04-10 05:36 | NUR ---
MEDICATED WITH NORCO FOR C/O BACK PAIN RATED A 7/10.
[2019-04-10 06:24] LABS: BASO % 0.1 % (0.0-1.0); HEMATOCRIT 35.7 % (37.0-47.0); HEMOGLOBIN 9.8 g/dl (12.0-16.0); LYMPH # 0.7 10*3/uL (1.3-4.4); LYMPH % 7.3 % (27.0-41.0); MEAN CELL VOLUME 86.2 fl (81.0-99.0); MEAN CORPUSCULAR HGB 23.7 pg (27.0-31.0); MEAN CORPUSCULAR HGB CONC 27.5 g/dl (33.0-37.0); MEAN PLATELET VOLUME 9.9 fl (9.6-12.3); MONO # 0.4 10*3/uL (0.1-1.0); MONO % 4.1 % (3.0-9.0); NEUT # 8.3 10*3/uL (2.3-7.9); NUCLEATED RED BLOOD CELL 0.2 % (0.0-0.0); PLATELET COUNT AUTOMATED 302 10*3/uL (130-400); RED BLOOD COUNT 4.14 10*6/uL (4.10-5.10); RED CELL DISTRI WIDTH 16.9 % (0-14.5); WHITE BLOOD COUNT 9.4 10*3/uL (4.8-10.8)
[2019-04-10 08:00] VITALS: BP 156/80
[2019-04-10 12:00] VITALS: BP 152/82
[2019-04-10 16:00] VITALS: BP 145/69
--- NOTE | 2019-04-10 19:45 | NUR ---
PT TITRATED TO RA. SATS MAINTAINING 93-96% ON RA. WILL CONTINUE TO MONITOR PT NEEDED.
[2019-04-10 20:00] VITALS: BP 158/78
--- NOTE | 2019-04-10 23:15 | NUR ---
MEDICATED WITH PRN NORCO FOR C/O BACK PAIN RATED 7/10 ON A 0/10 PAIN SCALE
[2019-04-11] VITALS: BP 154/77
--- NOTE | 2019-04-11 01:22 | NUR ---
24 HR chart check completed.
--- NOTE | 2019-04-11 01:29 | NUR ---
PATIENT RESTING IN BED WITH NO S/S OF DISTRESS. PREVIOUS NORCO SEEMS EFFECTIVE
--- NOTE | 2019-04-11 01:57 | NUR ---
MEDICATED WITH PRN RESTORIL FOR C/O SLEEPLESSNESS. WILL MONITOR
--- NOTE | 2019-04-11 05:47 | NUR ---
MEDICATED WITH PRN NORCO FOR C/O PAIN. WILL MONITOR
[2019-04-11 06:37] LABS: BASO % 0.1 % (0.0-1.0); HEMATOCRIT 37.2 % (37.0-47.0); HEMOGLOBIN 10.2 g/dl (12.0-16.0); LYMPH # 0.9 10*3/uL (1.3-4.4); LYMPH % 10.8 % (27.0-41.0); MEAN CELL VOLUME 84.9 fl (81.0-99.0); MEAN CORPUSCULAR HGB 23.3 pg (27.0-31.0); MEAN CORPUSCULAR HGB CONC 27.4 g/dl (33.0-37.0); MEAN PLATELET VOLUME 9.5 fl (9.6-12.3); MONO # 0.4 10*3/uL (0.1-1.0); MONO % 5.1 % (3.0-9.0); NEUT # 6.7 10*3/uL (2.3-7.9); NUCLEATED RED BLOOD CELL 0.4 % (0.0-0.0); PLATELET COUNT AUTOMATED 321 10*3/uL (130-400); RED BLOOD COUNT 4.38 10*6/uL (4.10-5.10); RED CELL DISTRI WIDTH 16.8 % (0-14.5); WHITE BLOOD COUNT 8.1 10*3/uL (4.8-10.8)
[2019-04-11 07:07] LABS: BUN 26 mg/dl (7-24); CHLORIDE 105 mmol/L (98-107); CREATININE 0.84 mg/dL (0.55-1.02); POTASSIUM 4.5 mmol/L (3.5-5.1); SODIUM 140 mmol/L (136-145)
[2019-04-11 08:00] VITALS: BP 166/88
[2019-04-11] MEDS ORDERED: VITAMIN D5000 UNI1 PO (10:22)
[2019-04-11] MEDS ORDERED: PREDNISONE10 MG PO (10:22)
[2019-04-11] MEDS ORDERED: LEVAQUIN500 M2 PO (10:22)
--- NOTE | 2019-04-11 11:30 | NUR ---
PATIENT DISCHARGED HOME W/ SON AND GREAT-GRANDSON IN WHEELCHAIR BY STAFF WITH ALL BELONGINGS. EDUCATION AND DISCHARGE INSTRUCTIONS GIVEN. ALL QUESTIONS ANSWERED.
== END 2019-04-11 11:30 | disposition home or self-care (01) | DRG 951 ==
LOC: ED 16:53 → 5E 18:25 → EDHOLD 18:25 → 5E 18:55
PROVIDERS: Emergency Medicine; Hospitalist; Internal Medicine; ADMIT Internal Medicine
DX: Z83.79 Family history of other diseases of the digestive system (principal); A41.9 Sepsis, unspecified organism; J18.9 Pneumonia, unspecified organism; E43 Unspecified severe protein-calorie malnutrition; Z68.43 Body mass index [BMI] 50.0-59.9, adult; R73.9 Hyperglycemia, unspecified; R09.02 Hypoxemia; I10 Essential (primary) hypertension; D64.9 Anemia, unspecified; K21.9 Gastro-esophageal reflux disease without esophagitis; E66.01 Morbid (severe) obesity due to excess calories; I48.91 Unspecified atrial fibrillation; G62.9 Polyneuropathy, unspecified; M48.00 Spinal stenosis, site unspecified; F41.9 Anxiety disorder, unspecified; G89.29 Other chronic pain; M54.9 Dorsalgia, unspecified; M19.90 Unspecified osteoarthritis, unspecified site; Z66 Do not resuscitate; Z51.5 Encounter for palliative care; Z96.653 Presence of artificial knee joint, bilateral; G25.81 Restless legs syndrome; K57.30 Diverticulosis of large intestine without perforation or abscess without bleeding; E83.41 Hypermagnesemia; Z91.041 Radiographic dye allergy status; Z91.048 Other nonmedicinal substance allergy status; Z85.3 Personal history of malignant neoplasm of breast; Z79.899 Other long term (current) drug therapy; Z90.49 Acquired absence of other specified parts of digestive tract; Z90.11 Acquired absence of right breast and nipple; Z90.710 Acquired absence of both cervix and uterus; Z82.5 Family history of asthma and other chronic lower respiratory diseases

== ENCOUNTER 2019-05-01 19:18 | Inpatient (IN) | payer OTHER ==
[~2019-05-01] VITALS: Ht 162.6 cm; Wt 144.8 kg
--- NOTE | ~2019-05-01 | EKG ---
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1945 Requested By: CHING GARCIA Order Number: [id number] Reading MD: Jaspal Whelan MD Measurements Intervals [place] Rate: 107 P: [place]: QRS: 22 QRSD: 72 T: 52 QT: 329 QTc: 439 Interpretive Statements Atrial fibrillation Ventricular premature complex Abnormal R-wave progression, early transition Baseline wander in lead(s) V4 Compared to ECG 04/07/2019 22:43:37 Ventricular premature complex(es) now present Sinus rhythm no longer present Electronically Signed On 05-03-2019 4:14:06 PDT by Jaspal Whelan MD CM:EKGRPT:ELECTROCARDIOGRAM REPORT 0055 0414 CHING BLACK DRAFT REPORT CHING GARCIA DO
--- NOTE | ~2019-05-01 | EKG ---
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: : 1945 Requested By: CHING GARCIA Order Number: [id number] Reading MD: Jaspal Whelan MD Measurements Intervals [place] Rate: 115 P: [place]: QRS: 18 QRSD: 80 T: 72 QT: 310 QTc: 429 Interpretive Statements Atrial fibrillation Ventricular premature complex Abnormal R-wave progression, early transition Minimal ST depression, anterolateral leads Baseline wander in lead(s) V6 Compared to ECG 04/07/2019 22:43:37 Ventricular premature complex(es) now present ST (T wave) deviation now present Sinus rhythm no longer present Electronically Signed On 05-03-2019 4:13:43 PDT by Jaspal Whelan MD CM:EKGRPT:ELECTROCARDIOGRAM REPORT 25 0413 CHING BLACK DRAFT REPORT CHING GARCIA DO
--- NOTE | ~2019-05-01 | EKG ---
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
[2019-05-01 19:18] VITALS: BP 160/90
[~2019-05-01 19:18] MED LIST changes: +LEVAQUIN500 M2 PO; +PREDNISONE10 MG PO
[2019-05-01 19:49] LABS: BASO % 0.3 % (0.0-1.0); EOS # 0.2 10*3/uL (0.0-0.4); EOS % 3.2 % (1.0-4.0); HEMATOCRIT 41.2 % (37.0-47.0); HEMOGLOBIN 11.3 g/dl (12.0-16.0); LYMPH # 2.4 10*3/uL (1.3-4.4); LYMPH % 34.1 % (27.0-41.0); MEAN CELL VOLUME 86.6 fl (81.0-99.0); MEAN CORPUSCULAR HGB 23.7 pg (27.0-31.0); MEAN CORPUSCULAR HGB CONC 27.4 g/dl (33.0-37.0); MEAN PLATELET VOLUME 9.3 fl (9.6-12.3); MONO # 0.7 10*3/uL (0.1-1.0); MONO % 10.4 % (3.0-9.0); NEUT # 3.6 10*3/uL (2.3-7.9); NEUT % 51.7 % (47.0-73.0); PLATELET COUNT AUTOMATED 250 10*3/uL (130-400); RED BLOOD COUNT 4.76 10*6/uL (4.10-5.10); RED CELL DISTRI WIDTH 19.4 % (0-14.5); WHITE BLOOD COUNT 6.9 10*3/uL (4.8-10.8)
[2019-05-01 20:00] LABS: ACT PARTIAL THROMBO TIME 24.3 SECONDS (20.0-32.1)
[2019-05-01 20:09] LABS: ALBUMIN 2.9 gm/dl (3.1-4.5); ALKALINE PHOSPHATASE 57 U/L (45-117); BUN 15 mg/dl (7-24); CHLORIDE 108 mmol/L (98-107); CREATININE 1.02 mg/dL (0.55-1.02); POTASSIUM 3.9 mmol/L (3.5-5.1); SGOT/AST 17 IU/L (3-35); SGPT/ALT 19 U/L (12-78); SODIUM 142 mmol/L (136-145); TOTAL PROTEIN 6.6 gm/dL (6.4-8.2)
[2019-05-01 20:10] LABS: TROPONIN I < 0.015 ng/ml (<0.045)
--- NOTE | 2019-05-01 20:26 | NUR ---
PATIENT WAS ORDERED BIPAP, BUT PATIENT HAS REFUSED BIPAP AT THIS TIME. DOCTOR AWARE.
[2019-05-01 21:29] VITALS: BP 146/80
--- NOTE | 2019-05-01 21:31 | NUR ---
PT REQUEST PAIN MEDICATION FOR HER BACK.HX CHRONIC BACK PAIN.USES A WALKER AT HOME TO AMBULATE WITH.PT REPOSITIONED IN BED.
[2019-05-01 22:59] VITALS: BP 157/97
[2019-05-01 23:15] VITALS: BP 151/99
--- NOTE | 2019-05-01 23:15 | NUR ---
A 74, admitted to 5E, under the services of RANJEET Olvera DO with a diagnosis of CHF. Chief complaint is SHORTNESS OF BREATH. Patient arrived via bed from ER. Monitor applied. Initial assessment completed. Vital signs taken and recorded. RANJEET OLVERA DO notified of admission to the unit. Orders received. See assessment for past medical history, medications and allergies. Patient and/or family oriented to unit. [address] visitation policy reviewed. Clothing/patient valuable form completed. SKIN WDI. NO WOUNDS PRESENT ON ADMISSION. CHAPARRO PEREZ
--- NOTE | 2019-05-01 23:20 | NUR ---
PT REFUSING ASHLEY L[place].
--- NOTE | 2019-05-01 23:21 | NUR ---
PT DENIES ANY OPEN WOUNDS OR SORES.SCAB NOTED TO ABDOMEN.
--- NOTE | 2019-05-01 23:21 | NUR ---
PRN NORCO ADMINISTERED PRESCRIBED FOR PT C/O 05/19 CHRONIC BACK PAIN. WILL CONTINUE TO MONITOR AND REASSESS.
--- NOTE | 2019-05-02 00:01 | NUR ---
DR RENDON AWARE OF UPDATED MED REC.
--- NOTE | 2019-05-02 00:20 | NUR ---
PT ASLEEP. NO SIGNS OF DISCOMFORT OR DISTRESS NOTED AT THIS TIME.
--- NOTE | 2019-05-02 05:08 | NUR ---
PRN NORCO ADMINISTERED FOR PT C/O CHRONIC BACK PAIN RATED AN 8/10 ON THE PAIN SCALE. WILL CONTINUE TO MONITOR AND REASSESS. CALL LIGHT IN REACH.
[2019-05-02 06:25] LABS: BASO % 0.3 % (0.0-1.0); EOS # 0.2 10*3/uL (0.0-0.4); EOS % 3.7 % (1.0-4.0); HEMATOCRIT 37.5 % (37.0-47.0); HEMOGLOBIN 10.6 g/dl (12.0-16.0); LYMPH % 32.6 % (27.0-41.0); MEAN CELL VOLUME 85.6 fl (81.0-99.0); MEAN CORPUSCULAR HGB 24.2 pg (27.0-31.0); MEAN CORPUSCULAR HGB CONC 28.3 g/dl (33.0-37.0); MEAN PLATELET VOLUME 9.4 fl (9.6-12.3); MONO # 0.6 10*3/uL (0.1-1.0); MONO % 9.7 % (3.0-9.0); NEUT # 3.2 10*3/uL (2.3-7.9); NEUT % 53.5 % (47.0-73.0); PLATELET COUNT AUTOMATED 247 10*3/uL (130-400); RED BLOOD COUNT 4.38 10*6/uL (4.10-5.10); RED CELL DISTRI WIDTH 19.2 % (0-14.5)
[2019-05-02 06:32] LABS: BUN 14 mg/dl (7-24); CHLORIDE 107 mmol/L (98-107); CREATININE 1.03 mg/dL (0.55-1.02); POTASSIUM 3.6 mmol/L (3.5-5.1); SODIUM 145 mmol/L (136-145)
[2019-05-02 06:33] LABS: PHOSPHOROUS 2.8 mg/dL (2.5-4.9)
[2019-05-02 08:00] VITALS: BP 125/76
[2019-05-02 12:00] VITALS: BP 85/52
--- NOTE | 2019-05-02 12:53 | NUR ---
Manager Council in to talk to patient. Patient states lives at HOME with SON. There are NO steps in the home. Physician: MYRANDA [facility]acy: [facility] Home health services: NONE Patient's level of ADLs: INDEPENDENT Patient has working utilities: YES DME: JANNA Follow-up physician's appointment after d/c: WILL BE MADE BY HOSPITALIST NURSE DIRECTOR ON DISCHARGE Does patient want to access PORTAL?: NO Discharge plan PT LIVES AT HOME WITH HER SON AND IS INDEPENDENT IN HER CARE. DENIES SHE WILL HAVE ANY NEEDS ON DISCHARGE. STATES SHE WILL GO BACK HOME WITH HER SON ON DISCHARGE. WILL CONTINUE TO FOLLOW. WILL HAVE A RIDE HOME ON DISCH ARGE. NELLY PAIZ
[2019-05-02 14:45] VITALS: BP 101/82
[2019-05-02 20:00] VITALS: BP 96/59
--- NOTE | 2019-05-02 22:04 | NUR ---
PRN PERCOCET ADMINISTERED PRESCRIBED FOR PT C/O CHRONIC BACK PAIN RATED A 9/10 ON THE PAIN SCALE. WILL CONTINUE TO MONITOR AND REASSESS. NO OTHER COMPLAINTS AT THIS TIME. PT ASLEEP UPON ENTERING ROOM. RESPIRATIONS EASY AND NONLABORED. CALL LIGHT IN REACH.
--- NOTE | 2019-05-02 23:47 | NUR ---
PT ASLEEP AT THIS TIME. NO SIGNS OF DISCOMFORT OR DISTRESS NOTED.
[2019-05-03] VITALS: BP 114/69
--- NOTE | 2019-05-03 03:32 | NUR ---
PRN PERCOCET ADMINISTERED PRESCRIBED FOR PT C/O CHRONIC BACK PAIN RATED A 10 ON THE PAIN SCALE. WILL CONTINUE TO MONITOR AND REASSESS. CALL LIGHT IN REACH.
--- NOTE | 2019-05-03 04:26 | NUR ---
PT ASLEEP AT THIS TIME. NO SIGNS OF DISCOMFORT OR DISTRESS NOTED.
[2019-05-03 06:52] LABS: ALBUMIN 2.7 gm/dl (3.1-4.5); CREATININE 1.16 mg/dL (0.55-1.02); PHOSPHOROUS 3.3 mg/dL (2.5-4.9); POTASSIUM 3.6 mmol/L (3.5-5.1)
[2019-05-03 08:00] VITALS: BP 108/62
[2019-05-03] MEDS ORDERED: METOPROLOL SUCC50 M1 PO (09:04)
[2019-05-03] MEDS ORDERED: LASIX40 MG PO (11:39)
[2019-05-03] MEDS ORDERED: KLOR-CON M1010 ME1 PO (11:39)
--- NOTE | 2019-05-03 11:55 | NUR ---
Discharge instructions reviewed with patient/family. Patient receptive and verbalizes understanding. Follow-up care arranged. Written instructions given to patient/family. TITO CLIFTON
--- NOTE | 2019-05-03 12:36 | NUR ---
PT IS BEING DISCHARGED TO HOME TODAY. DENIES ANY NEEDS, WILL CONTINUE TO FOLLOW.
== END 2019-05-03 11:55 | disposition home or self-care (01) | DRG 291 ==
LOC: ED 19:18 → 5E 21:49 → EDHOLD 21:49 → 5E 22:38
PROVIDERS: Emergency Medicine; Internal Medicine; Registered Nurse; ADMIT Internal Medicine
DX: I11.0 Hypertensive heart disease with heart failure (principal); E43 Unspecified severe protein-calorie malnutrition; Z68.43 Body mass index [BMI] 50.0-59.9, adult; I48.0 Paroxysmal atrial fibrillation; G62.9 Polyneuropathy, unspecified; E55.9 Vitamin D deficiency, unspecified; Z66 Do not resuscitate; Z51.5 Encounter for palliative care; I50.33 Acute on chronic diastolic (congestive) heart failure; F32.9 Major depressive disorder, single episode, unspecified; J44.9 Chronic obstructive pulmonary disease, unspecified; K57.90 Diverticulosis of intestine, part unspecified, without perforation or abscess without bleeding; M19.90 Unspecified osteoarthritis, unspecified site; K21.9 Gastro-esophageal reflux disease without esophagitis; E66.01 Morbid (severe) obesity due to excess calories; G25.81 Restless legs syndrome; D64.9 Anemia, unspecified; Z96.653 Presence of artificial knee joint, bilateral; Z90.49 Acquired absence of other specified parts of digestive tract; Z90.11 Acquired absence of right breast and nipple; Z79.01 Long term (current) use of anticoagulants; Z79.899 Other long term (current) drug therapy; Z88.8 Allergy status to other drugs, medicaments and biological substances; Z91.041 Radiographic dye allergy status; Z82.5 Family history of asthma and other chronic lower respiratory diseases; Z83.79 Family history of other diseases of the digestive system

== ENCOUNTER 2019-05-09 01:33 | Inpatient (IN) | payer OTHER ==
[2019-05-09] VITALS (12 sets, daily range): BP systolic 100–147; BP diastolic 54–80
[~2019-05-09] VITALS: Ht 162.6 cm; Wt 146.3 kg
[~2019-05-09 01:33] MED LIST changes: +KLOR-CON M1010 ME1 PO; +LASIX40 MG PO; +METOPROLOL SUCC50 M1 PO
[2019-05-09 01:56] LABS: BASO % 0.4 % (0.0-1.0); EOS # 0.2 10*3/uL (0.0-0.4); EOS % 4.1 % (1.0-4.0); HEMATOCRIT 36.1 % (37.0-47.0); HEMOGLOBIN 10.2 g/dl (12.0-16.0); LYMPH # 2.3 10*3/uL (1.3-4.4); LYMPH % 43.4 % (27.0-41.0); MEAN CELL VOLUME 83.6 fl (81.0-99.0); MEAN CORPUSCULAR HGB 23.6 pg (27.0-31.0); MEAN CORPUSCULAR HGB CONC 28.3 g/dl (33.0-37.0); MEAN PLATELET VOLUME 8.4 fl (9.6-12.3); MONO # 0.6 10*3/uL (0.1-1.0); MONO % 10.3 % (3.0-9.0); NEUT # 2.2 10*3/uL (2.3-7.9); NEUT % 41.6 % (47.0-73.0); PLATELET COUNT AUTOMATED 223 10*3/uL (130-400); RED BLOOD COUNT 4.32 10*6/uL (4.10-5.10); RED CELL DISTRI WIDTH 18.4 % (0-14.5); WHITE BLOOD COUNT 5.3 10*3/uL (4.8-10.8)
[2019-05-09 02:12] LABS: ALBUMIN 2.9 gm/dl (3.1-4.5); ALKALINE PHOSPHATASE 55 U/L (45-117); BUN 18 mg/dl (7-24); CHLORIDE 108 mmol/L (98-107); CREATININE 1.03 mg/dL (0.55-1.02); POTASSIUM 3.8 mmol/L (3.5-5.1); SGOT/AST 29 IU/L (3-35); SGPT/ALT 20 U/L (12-78); SODIUM 143 mmol/L (136-145); TOTAL PROTEIN 6.6 gm/dL (6.4-8.2)
[2019-05-09 02:14] LABS: TROPONIN I < 0.015 ng/ml (<0.045)
--- NOTE | 2019-05-09 05:13 | NUR ---
A 74, admitted to , under the services of LISA Fraser DO with a diagnosis of HYPOXIA. Chief complaint is SHORTNESS OF BREATH. Patient arrived via stretcher from ER Initial assessment completed. Vital signs taken and recorded. See assessment for past medical history, medications and allergies. Patient and/or family oriented to unit. [address] visitation policy reviewed. Clothing/patient valuable form completed. SOCORRO BRAGG
--- NOTE | 2019-05-09 05:28 | NUR ---
NOTIFIED DR. GILLETTE PATIENT'S MED LIST WAS UPDATED AND THE NEED FOR ADMISSION ORDERS.
--- NOTE | 2019-05-09 08:24 | NUR ---
Zofran 4 mg given for c/o nausea.
[2019-05-09] MEDS ORDERED: METOPROLOL SUCC50 M1 PO (13:25)
--- NOTE | 2019-05-09 22:36 | NUR ---
PO PERCOCET ADMINISTERED PER PRN ORDER FOR C/O CHRONIC LOWER BACK PAIN RATED 8/10. WILL MONITOR EFFECTIVENESS. CALL LIGHT IN REACH.
[2019-05-10] VITALS: BP 107/73
[2019-05-10 01:29] LABS: BILIRUBIN NEGATIVE (NEGATIVE); BLOOD NEGATIVE (NEGATIVE); CLARITY CLEAR (CLEAR); COLOR YELLOW (YELLOW); GLUCOSE NEGATIVE (NEGATIVE); KETONE NEGATIVE (NEGATIVE); LEUKO ESTERASE NEGATIVE (NEGATIVE); NITRITE NEGATIVE (NEGATIVE); PH 5.5 (5.0-9.0); SPECIFIC GRAVITY 1.025 (1.005-1.030); UROBILINOGEN 0.2 E.U./dl (0.2-1.0)
[2019-05-10 01:43] LABS: RBC 0-2 rbc/hpf (0-2); WBC 0-2 wbc/hpf (0-5)
--- NOTE | 2019-05-10 03:16 | NUR ---
PT. GIVEN PERCOSET ORDERED FOR BACK PAIN RATED #10 ON 1-10 PAIN SCALE. BARBIE WEBSTER RN
--- NOTE | 2019-05-10 03:56 | NUR ---
EARLIER MEDICATION APPEARS EFFECTIVE. PT ASLEEP IN BED. RESPIRATIONS EASY. NO S/S OF DISTRESS NOTED. WILL MONITOR. CALL LIGHT IN REACH. BED ALARM INTACT.
--- NOTE | 2019-05-10 07:15 | NUR ---
TITRATED O2 FROM 4L/M TO 2L/M. SAT 83% ON RA. SAT 97% ON 4L/M. SAT 96-97 ON 3L/M. SAT 94-97% ON 2L/M. O2 AT 2L/M. PT STATES NO C/O SOB.
[2019-05-10 07:35] LABS: BASO % 0.3 % (0.0-1.0); EOS # 0.2 10*3/uL (0.0-0.4); EOS % 6.1 % (1.0-4.0); HEMATOCRIT 36.3 % (37.0-47.0); HEMOGLOBIN 10.1 g/dl (12.0-16.0); LYMPH # 1.3 10*3/uL (1.3-4.4); LYMPH % 33.9 % (27.0-41.0); MEAN CELL VOLUME 84.2 fl (81.0-99.0); MEAN CORPUSCULAR HGB 23.4 pg (27.0-31.0); MEAN CORPUSCULAR HGB CONC 27.8 g/dl (33.0-37.0); MEAN PLATELET VOLUME 9.8 fl (9.6-12.3); MONO # 0.5 10*3/uL (0.1-1.0); MONO % 13.3 % (3.0-9.0); NEUT # 1.8 10*3/uL (2.3-7.9); NEUT % 46.4 % (47.0-73.0); PLATELET COUNT AUTOMATED 252 10*3/uL (130-400); RED BLOOD COUNT 4.31 10*6/uL (4.10-5.10); RED CELL DISTRI WIDTH 18.5 % (0-14.5); WHITE BLOOD COUNT 3.9 10*3/uL (4.8-10.8)
[2019-05-10 07:59] LABS: ALBUMIN 2.7 gm/dl (3.1-4.5); POTASSIUM 3.6 mmol/L (3.5-5.1)
[2019-05-10 08:00] VITALS: BP 95/56
[2019-05-10 08:02] LABS: CREATININE 1.16 mg/dL (0.55-1.02); PHOSPHOROUS 3.5 mg/dL (2.5-4.9); TOTAL PROTEIN 6.3 gm/dL (6.4-8.2)
--- NOTE | 2019-05-10 08:28 | NUR ---
PT RESTING IN BED. NO DISTRESS NOTED. WILL MONITOR
--- NOTE | 2019-05-10 09:56 | NUR ---
PT REQUESTED AND GIVEN PERCOCET FOR C/O BACK PAIN. PT RATES PAIN 5/10 WILL MONITOR
--- NOTE | 2019-05-10 10:00 | NUR ---
Occupational Therapy evaluation completed on 4 with full eval to follow. Precautions include new o2 use,IV UE,walker use,low complexity level 49140 via chart review, testing and evaluation. Recommend OT per POC and discharge home with son and home health SN, OT,PT. Thank you. Teri Aggarwal OTR/L
--- NOTE | 2019-05-10 10:00 | NUR ---
PHYSICAL THERAPY Physical therapy evaluation completed. Full details and evaluation to follow. Low complexity skilled PT evaluation performed (45423). PT will work on strength, gait, endurance, and safety per POC. Recommend home with home health upon discharge. Thank you, Aye Kate,SPT Tequila Ash,PT,DPT
[2019-05-10 11:32] VITALS: BP 124/80
[2019-05-10 12:00] VITALS: BP 110/54
--- NOTE | 2019-05-10 13:37 | NUR ---
Hospitalist Nocturnist Physician in to talk to patient. Patient states lives at HOME with SON. There are NO steps in the home. Physician: MYRANDA [facility]: [facility] Home health services: NONE Patient's level of ADLs: MINIMAL ASSIST Patient has working utilities: YES DME: WALKER Follow-up physician's appointment after d/c: WILL BE MADE BY HOSPITALIST NURSE DIRECTOR ON DISCHARGE Does patient want to access PORTAL?: NO Discharge plan PT LIVES AT HOME WITH SON AND STATES SHE IS GOING HOME ON DISCHARGE. TALKED WITH PT ABOUT SKILLED STAY AND SHE REFUSES. DID AGREE TO HOME HEALTH AND STATES SHE HAS HAD [facility] IN THE PAST AND WOULD LIKE THEM AGAIN. WILL GET ORDER AND FAX REFERRAL. WILL CONTINUE TO FOLLOW. WILL HAVE A RIDE HOME PER PT.. NELLY PAIZ
--- NOTE | 2019-05-10 15:07 | NUR ---
RECEIVED A SNF ORDER ON PT. WENT TO SEE PT, SHE STATES HER KIDS WANT HER TO GO TO REHAB BEFORE COMING HOME. PT HAS REQUESTED [facility] BUT THEY DO NOT HAVE A BED AVAILABLE AND DO NOT ANTICIPATE ONE UNTIL May. TALKED TO PT ABOUT REHAB SUITES WHO WILL MAY HAVE A BED AVAILABLE ON THE . PT IS AGREEABLE TO THAT. SCHEDULER CONVEYOR INFORMED.
--- NOTE | 2019-05-10 15:12 | NUR ---
Patient is now requesting a referral to the rehab suites. Although patient has [facility] advantange and [facility] is out of network, the referral was still faxed to facility can check on any out of network benefits.
[2019-05-10 16:00] VITALS: BP 111/62
[2019-05-10 20:00] VITALS: BP 98/71
--- NOTE | 2019-05-10 20:42 | NUR ---
PT FOUND WITH NASAL CANNULA OUT OF NOSE. RN ASKED WHY PT HAD TAKEN IT OFF AND SHE SAID SHE JUST FORGOT ABOUT IT. POX ON ROOM AIR 84%. O2 APPLIED @ 2L NC. POX BACK UP TO 100%. PATIENT DENIES ANY SHORTNESS OF BREATH AND NO S/S OF DISTRESS NOTED, EVEN WITH POX OF 84%. SCHEDULED EVENING MEDS GIVEN AT THIS TIME. PO PERCOCET ALSO ADMINISTERED FOR C/O CHRONIC PAIN IN BACK RATED 9/10. WILL MONITOR EFFECTIVENESS. CALL LIGHT LEFT IN REACH.
[2019-05-11] VITALS: BP 120/67
[2019-05-11 06:53] LABS: BASO % 0.3 % (0.0-1.0); EOS # 0.2 10*3/uL (0.0-0.4); HEMATOCRIT 37.8 % (37.0-47.0); HEMOGLOBIN 10.4 g/dl (12.0-16.0); LYMPH # 1.5 10*3/uL (1.3-4.4); LYMPH % 40.1 % (27.0-41.0); MEAN CELL VOLUME 84.9 fl (81.0-99.0); MEAN CORPUSCULAR HGB 23.4 pg (27.0-31.0); MEAN CORPUSCULAR HGB CONC 27.5 g/dl (33.0-37.0); MEAN PLATELET VOLUME 9.4 fl (9.6-12.3); MONO # 0.6 10*3/uL (0.1-1.0); MONO % 15.4 % (3.0-9.0); NEUT # 1.4 10*3/uL (2.3-7.9); NEUT % 37.9 % (47.0-73.0); PLATELET COUNT AUTOMATED 260 10*3/uL (130-400); RED BLOOD COUNT 4.45 10*6/uL (4.10-5.10); RED CELL DISTRI WIDTH 18.3 % (0-14.5); WHITE BLOOD COUNT 3.7 10*3/uL (4.8-10.8)
[2019-05-11 07:26] LABS: CREATININE 1.19 mg/dL (0.55-1.02); POTASSIUM 3.6 mmol/L (3.5-5.1)
[2019-05-11 08:00] VITALS: BP 110/67
--- NOTE | 2019-05-11 08:49 | NUR ---
Patient is out of network for all three gasquet facilities, however, riya stating patient has been to [facility] in the past. She is having her benefits rechecked. Also faxed referral to [facility] where insurance is in network for review. will follow
--- NOTE | 2019-05-11 11:15 | NUR ---
[facility] reviewed patients clinicals and therapy evals. Stating patient is "too good" to be authorized by her insurance; Will discuss with patient.
--- NOTE | 2019-05-11 11:39 | NUR ---
PULSE OX ON 1L AT REST 92%, O2 REMOVED, PULSE OX CHECKED AGAIN AFTER 10 MINUTTES, PULSE OX DECREASED TO 86%. O2 PLACED ON PT AT 1LM, INCREASING TO 92%. DR. NELSON CALLED AND NOTIFIED. FULL ASSESSMENT NOT DONE, PT. IS GOING TO REHAB PRIOR TO DISCHARGE TO HOME. RN NOTIFIED.
--- NOTE | 2019-05-11 11:41 | NUR ---
TUBIGRIPS APPLIED TO BILATERAL LEGS ORDERED PT REFUSED [facility]
[2019-05-11 12:00] VITALS: BP 120/68
--- NOTE | 2019-05-11 12:05 | NUR ---
In to see patient to discuss snf VS home health therapy. Therapy is recommending home with home health. She stated she was not happy with [facility], will look at another agency in network
--- NOTE | 2019-05-11 13:15 | NUR ---
OT NOTE Pt was seen this P.M. 1:1 for 15 minute OT session. Upon arrival pt was sitting upright in the recliner. Pt identified by name and and had no complaints at this time. Pt presented to therapy with continuous 1L-O2 via NC which she remained on throughout entire session. At rest pt's SpO2 was 92% and heart rate 67 bpm. Pt completed sit to stand transfer from chair level with Ruby and use of w/w for UE support. While standing pt donned new gown with Ruby due to being unsteady without UE support. Functional mobility completed into the bathroom with CGA and use of w/w for UE support. Throughout mobility pt required verbal prompts for safety with the O2 line. Pt transferred on/off standard commode with Ruby and use of grab bar for UE support. Clothing management completed with CGA for safety. Pt then stood sink side while washing her hands with CGA. Educated pt on energy conservation techniques for increased I and enhanced safety. Pt then returned to recliner for a seated rest break. Pt's SpO2 was 88% and heart rate 79 bpm after aprox 15 seconds pt's SpO2 was 91%. Pt was left sitting upright in the recliner with call light in hand, tray table in place, and phone in reach. Continue with rec D/C plan to home with home health. DARBY Magdaleno/Mk
--- NOTE | 2019-05-11 13:27 | NUR ---
PHYSICAL THERAPY Patient seen this pm 1:1 for therapy visit and was sitting up in bedside chair upon therapist arrival. Patient identified by name / and reports no c/o's pain at this time. Patient presents with contiinuous O2-1L via NC and records SpO2 92%, HR 67 bpm. Patient transfers sit to stand from low chair surface MIN A demonstrating very slow rise. Patient amublates with use of wh walker, 20'x 1, then additional 15'x 1 from bathroom, [facility], demonstrating very slow shaji, Poor upright slouched posture and increased fatigue. Patient returned to bedside chair and remained with call light, tray table and telephone as lunch arrived. Patient SpO2 88%, HR 79 bpm and returned to near baseline within 15 seconds of seated rest. Will continue per POC as tolerated, total treatment time 16 minutes. Chadwick Goins, TUBE TESTER
--- NOTE | 2019-05-11 13:36 | NUR ---
[facility] is out of network with patients insurance. [facility] is not longer in business. [facility] is in network with patients insurance, referral faxed for review.
--- NOTE | 2019-05-11 14:50 | NUR ---
pt requested and given percocet for c/o back pain. pt rates pain 8/10 will monitor
[2019-05-11 16:00] VITALS: BP 111/65
--- NOTE | 2019-05-11 16:35 | NUR ---
PERCOCET EFFECTIVE WILL MONITOR
[2019-05-11 20:00] VITALS: BP 111/70
--- NOTE | 2019-05-11 21:07 | NUR ---
MEDICATED WITH PERCOCET/ROXICODONE FOR COMPLAINTS OF BACK PAIN. RATES 03/19 WILL CHECK EFECTIVENESS
--- NOTE | 2019-05-11 23:00 | NUR ---
PER PT MEDICATION EFFECTIVE.
[2019-05-12] VITALS: BP 124/75
--- NOTE | 2019-05-12 03:03 | NUR ---
PATIENT C/O SEVERE BACK PAIN. MEDICATED WITH PERCOCET/ROXICODONE PER EMAR. RATES PAIN 04/19. WILL CHECK EFFECTIVENESS.
--- NOTE | 2019-05-12 04:30 | NUR ---
PATIENT SLEEPING. RESPIRATIONS EASY, NON LABORED. NO SIGNS OF DISTRESS. PAIN MEDICATIN EFFECTIVE. BED IN LOWEST POSITION, CALL LIGHT WITHIN REACH. WILL CONTINUE TO MONITOR.
[2019-05-12 06:45] LABS: BASO % 0.5 % (0.0-1.0); EOS # 0.2 10*3/uL (0.0-0.4); EOS % 5.2 % (1.0-4.0); HEMATOCRIT 37.2 % (37.0-47.0); HEMOGLOBIN 10.2 g/dl (12.0-16.0); LYMPH # 2.2 10*3/uL (1.3-4.4); LYMPH % 50.8 % (27.0-41.0); MEAN CELL VOLUME 84.5 fl (81.0-99.0); MEAN CORPUSCULAR HGB 23.2 pg (27.0-31.0); MEAN CORPUSCULAR HGB CONC 27.4 g/dl (33.0-37.0); MEAN PLATELET VOLUME 9.5 fl (9.6-12.3); MONO # 0.6 10*3/uL (0.1-1.0); MONO % 13.7 % (3.0-9.0); NEUT # 1.3 10*3/uL (2.3-7.9); NEUT % 29.6 % (47.0-73.0); PLATELET COUNT AUTOMATED 269 10*3/uL (130-400); RED CELL DISTRI WIDTH 17.9 % (0-14.5); WHITE BLOOD COUNT 4.4 10*3/uL (4.8-10.8)
[2019-05-12 06:54] LABS: CREATININE 1.42 mg/dL (0.55-1.02); POTASSIUM 3.7 mmol/L (3.5-5.1)
[2019-05-12 08:00] VITALS: BP 135/81
--- NOTE | 2019-05-12 09:11 | NUR ---
MEDICATED WITH PERCOCET AND ROXICODONE PER PRN ORDER FOR COMPLAINTS OF CHRONIC BACK PAIN. RATES PAIN 02/16. WILL MONITOR FOR EFFECTIVENESS.
--- NOTE | 2019-05-12 09:20 | NUR ---
OT NOTE Pt was seen this A.M. 1:1 for 18 minute OT session. Upon arrival pt was supine in bed. Pt identified by name and and had no complaints at this time. Pt presented to therapy with continuous 2L-O2 via NC which she remained on throughout the entire session. Pt's resting SpO2 was 93%. While sitting pt was educated on energy conservation techniques for LB dressing, pt then performed with good carry over and SBA. Sit to stand completed from chair level with CGA and use of w/w for UE support. Challenged pt's static standing tolerance needed for increased I in self care tasks and functional transfers, pt was able to tolerate aprox 4 minutes at a time before sitting due to fatigue and feeling SOB. Functional mobility completed into the bathroom with CGA and use of w/w. There she transferred on/off standard commode with Ruby due to low surface. Clothing management completed with CGA and toilet hygiene completed with supervision while seated. Pt then stood sink side while washing her hands with CGA. Throughout activity pt's SpO2 was 90%. Pt was left sitting upright in the recliner with call light in hand, tray table in place, and phone in reach. Pt's resting Spo2 was 92%. Continue with rec D/C plan to home with home health. DARBY Magdaleno/Mk
--- NOTE | 2019-05-12 09:44 | NUR ---
PHYSICAL THERAPY Patient presented to therapy in sitting position with no chair alarm attached and report no pain. Patient was identified by name and on wristband. Patient gives informed consent for treatment. Patient performed sit to stand transfer with CGA X 1. Patient is on 2 liters of spO2 VIA NASAL CANULA. Patient performed ambulation with Wh Walker and CGA X 2 for 20' x 2 with one seated rest break at 20' distance and no LOB. Patient sit to stand out of low chair with with MIN A X 1. Patient's O2 SAT was recorded as 92% and pulse at 87 following 20' x 2 ambulation. Patient was left in sitting in bedside chair with 2 liters of spO2 VIA NASAL CANULA connected to wall outlet, call light within reach and NO chair alarm present. Patient was 1:1 with this CERTIFIED ADDICTION COUNSELOR for 20 minutes total. MARSAH SMITH CERTIFIED ADDICTION COUNSELOR
--- NOTE | 2019-05-12 10:34 | NUR ---
[facility] is accepting this patient, they were notified of patient being discharged to home today.
[2019-05-12 12:00] VITALS: BP 102/55
--- NOTE | 2019-05-12 14:09 | NUR ---
MEDICATED WITH PERCOCET AND ROXICODONE FOR COMPLAINTS OF CHRONIC BACK PAIN 03/19. WILL MONITOR FOR EFFECTIVENESS.
[2019-05-12] MEDS ORDERED: LASIX20 MG PO (14:10)
--- NOTE | 2019-05-12 14:50 | NUR ---
PT IS DISCHARGED TODAY TO HOME WITH [facility].
--- NOTE | 2019-05-12 15:55 | NUR ---
PHYSICAL THERAPY CO-SIGN I approve of the Physical Therapy notes written above. REGLA SEGURA PT,DPT
--- NOTE | 2019-05-12 16:00 | NUR ---
Discharge instructions reviewed with patient/family. Patient receptive and verbalizes understanding. Follow-up care arranged. Written instructions given to patient/family. IV site removed. Oxygen delivered, set up explained to pt and oxygen applied at 2l NC. Pt transported via wheelchair to [facility]. VICTORIA DUNN
--- NOTE | 2019-05-13 13:01 | NUR ---
OCCUPATIONAL THERAPY CO-SIGN I approve of the Occupational Therapy notes written above. MARIA VICTORIA NG OTR/Mk
== END 2019-05-12 16:00 | disposition home or self-care (01) | DRG 682 ==
LOC: ED 01:33 → EDHOLD 04:22 → 4E 04:22
PROVIDERS: Emergency Medicine; Student in an Organized Health Care Education/Training Program; ADMIT Family Medicine
DX: N17.0 Acute kidney failure with tubular necrosis (principal); J96.01 Acute respiratory failure with hypoxia; G93.41 Metabolic encephalopathy; I50.33 Acute on chronic diastolic (congestive) heart failure; E44.0 Moderate protein-calorie malnutrition; Z68.43 Body mass index [BMI] 50.0-59.9, adult; I11.0 Hypertensive heart disease with heart failure; K21.9 Gastro-esophageal reflux disease without esophagitis; K44.9 Diaphragmatic hernia without obstruction or gangrene; E66.01 Morbid (severe) obesity due to excess calories; Z66 Do not resuscitate; Z51.5 Encounter for palliative care; F41.9 Anxiety disorder, unspecified; Z96.653 Presence of artificial knee joint, bilateral; G89.29 Other chronic pain; I48.91 Unspecified atrial fibrillation; K57.90 Diverticulosis of intestine, part unspecified, without perforation or abscess without bleeding; G25.81 Restless legs syndrome; M19.90 Unspecified osteoarthritis, unspecified site; M54.9 Dorsalgia, unspecified; G62.9 Polyneuropathy, unspecified; J44.9 Chronic obstructive pulmonary disease, unspecified; D50.9 Iron deficiency anemia, unspecified; E55.9 Vitamin D deficiency, unspecified; Z91.041 Radiographic dye allergy status; Z91.09 Other allergy status, other than to drugs and biological substances; Z85.3 Personal history of malignant neoplasm of breast; Z87.01 Personal history of pneumonia (recurrent); Z90.49 Acquired absence of other specified parts of digestive tract; Z90.11 Acquired absence of right breast and nipple; Z90.710 Acquired absence of both cervix and uterus; Z82.5 Family history of asthma and other chronic lower respiratory diseases; Z83.79 Family history of other diseases of the digestive system; Z79.899 Other long term (current) drug therapy

== ENCOUNTER 2019-07-29 06:35 | Inpatient (IN) | payer OTHER ==
[~2019-07-29] VITALS: Ht 163 cm; Wt 147.6 kg
[~2019-07-29 06:35] MED LIST changes: +LASIX20 MG PO
[2019-07-29 06:38] VITALS: BP 147/110
[2019-07-29 07:11] LABS: BASO % 0.5 % (0.0-1.0); EOS # 0.2 10*3/uL (0.0-0.4); EOS % 3.5 % (1.0-4.0); HEMATOCRIT 38.9 % (37.0-47.0); HEMOGLOBIN 11.3 g/dl (12.0-16.0); LYMPH % 30.6 % (27.0-41.0); MEAN CELL VOLUME 84.9 fl (81.0-99.0); MEAN CORPUSCULAR HGB 24.7 pg (27.0-31.0); MEAN PLATELET VOLUME 9.2 fl (9.6-12.3); MONO # 0.7 10*3/uL (0.1-1.0); MONO % 10.4 % (3.0-9.0); NEUT # 3.6 10*3/uL (2.3-7.9); NEUT % 54.7 % (47.0-73.0); PLATELET COUNT AUTOMATED 286 10*3/uL (130-400); RED BLOOD COUNT 4.58 10*6/uL (4.10-5.10); RED CELL DISTRI WIDTH 17.1 % (0-14.5); WHITE BLOOD COUNT 6.6 10*3/uL (4.8-10.8)
[2019-07-29 07:27] LABS: ALKALINE PHOSPHATASE 65 U/L (45-117); BUN 16 mg/dl (7-24); CHLORIDE 108 mmol/L (98-107); CREATININE 1.06 mg/dL (0.55-1.02); POTASSIUM 3.8 mmol/L (3.5-5.1); SGOT/AST 24 IU/L (3-35); SGPT/ALT 19 U/L (12-78); SODIUM 143 mmol/L (136-145); TOTAL PROTEIN 7.4 gm/dL (6.4-8.2)
[2019-07-29 07:29] LABS: TROPONIN I < 0.015 ng/ml (<0.045)
[2019-07-29 09:25] VITALS: BP 154/88
--- NOTE | 2019-07-29 09:43 | NUR ---
PT STABLE AND READY FOR TRANSPORT TO INPATIENT BED.
[2019-07-29 10:20] VITALS: BP 142/86; BP 148/86
--- NOTE | 2019-07-29 10:20 | NUR ---
A 74, admitted to , under the services of PEPE Calero DO with a diagnosis of COPD EXACERBATION. Chief complaint is SHORTNESS OF BREATH. Patient arrived via ambulatory from ER. Monitor applied. Initial assessment completed. Vital signs taken and recorded. PEPE CALERO DO notified of admission to the unit. Orders received. See assessment for past medical history, medications and allergies. Patient and/or family oriented to unit. [facility] visitation policy reviewed. Clothing/patient valuable form completed. NAEEM POLO
[2019-07-29] MEDS ORDERED: PERCOCET 10-321 EACH PO (10:36)
[2019-07-29] MEDS ORDERED: POTASSIUM CHLO20 ME4 PO (10:38)
[2019-07-29] MEDS ORDERED: PRAMIPEXOLE0.125 MG PO (10:40)
[2019-07-29 11:09] LABS: BILIRUBIN NEGATIVE (NEGATIVE); BLOOD TRACE-INTACT (NEGATIVE); CLARITY SL CLOUDY (CLEAR); COLOR YELLOW (YELLOW); GLUCOSE NEGATIVE (NEGATIVE); KETONE NEGATIVE (NEGATIVE); LEUKO ESTERASE NEGATIVE (NEGATIVE); NITRITE NEGATIVE (NEGATIVE); PH 5.5 (5.0-9.0); SPECIFIC GRAVITY 1.025 (1.005-1.030); UROBILINOGEN 0.2 E.U./dl (0.2-1.0)
[2019-07-29 11:22] LABS: BACTERIA 2+; MUCOUS 2+
--- NOTE | 2019-07-29 11:38 | NUR ---
FLUTTER INSTRUCT X10 BREATHS. WILL CONTINUE ON OWN
[2019-07-29 12:00] VITALS: BP 142/86
[2019-07-29 16:00] VITALS: BP 126/78
--- NOTE | 2019-07-29 19:37 | NUR ---
CALLED AND SPOKE TO DR. SUGGS, ADVISED OF AMOUNT OF TYLENOL WITH CURRENT DOSE OF PERCOCET, OF 3900 MG TYLENOL, HE VERSED HE WILL REVIEW AND CHANGE.
[2019-07-29 20:00] VITALS: BP 106/55
--- NOTE | 2019-07-29 21:38 | NUR ---
ATIVAN GIVEN PER PATIENT REQUEST FOR COMPLAINTS OF ANXIETY. WILL ASSESS EFFECTIVENESS.
--- NOTE | 2019-07-29 22:41 | NUR ---
ATIVAN EFFECTIVE PER PATIENT.
[2019-07-30] VITALS: BP 94/56
--- NOTE | 2019-07-30 02:47 | NUR ---
Patient resting quietly with no c/o discomfort. Respirations easy and regular. Vital signs stable. No overt distress. MARY MCCRAY
[2019-07-30 06:21] LABS: BASO % 0.1 % (0.0-1.0); HEMATOCRIT 37.3 % (37.0-47.0); HEMOGLOBIN 10.9 g/dl (12.0-16.0); LYMPH # 1.1 10*3/uL (1.3-4.4); LYMPH % 14.9 % (27.0-41.0); MEAN CORPUSCULAR HGB 24.5 pg (27.0-31.0); MEAN CORPUSCULAR HGB CONC 29.2 g/dl (33.0-37.0); MEAN PLATELET VOLUME 9.4 fl (9.6-12.3); MONO # 0.3 10*3/uL (0.1-1.0); MONO % 3.3 % (3.0-9.0); NEUT # 6.1 10*3/uL (2.3-7.9); NEUT % 80.9 % (47.0-73.0); PLATELET COUNT AUTOMATED 285 10*3/uL (130-400); RED BLOOD COUNT 4.44 10*6/uL (4.10-5.10); RED CELL DISTRI WIDTH 17.2 % (0-14.5); WHITE BLOOD COUNT 7.6 10*3/uL (4.8-10.8)
[2019-07-30 07:15] LABS: CREATININE 1.3 mg/dL (0.55-1.02); FREE T4 1.01 ng/dl (0.76-1.46); PHOSPHOROUS 2.1 mg/dL (2.5-4.9); POTASSIUM 4.1 mmol/L (3.5-5.1); TOTAL PROTEIN 7.3 gm/dL (6.4-8.2)
[2019-07-30 07:20] LABS: THYROID STIM HORMONE (HS) 1.06 uIU/ml (0.358-4.75)
[2019-07-30 07:43] LABS: VITAMIN D, 25-HYDROXY 26.4 ng/mL (30-100)
[2019-07-30 08:00] VITALS: BP 110/58; BP 111/58
--- NOTE | 2019-07-30 09:46 | NUR ---
DR. SIMMS NOTIFIED OF CONSULT AND IN TO SEE THE PATIENT.
--- NOTE | 2019-07-30 11:51 | NUR ---
MEDICATED WITH PRN IV ZOFRAN FOR NAUSEA/BELCHING.
[2019-07-30 12:00] VITALS: BP 114/66
--- NOTE | 2019-07-30 12:45 | NUR ---
PRN IV ZOFRAN EFFECTIVE FOR NAUSEA, PER PATIENT.
[2019-07-30 16:00] VITALS: BP 113/65
--- NOTE | 2019-07-30 19:55 | NUR ---
PATIENT STATED HER SCHEDULED DOSE OF PERCOCET WAS MAKING HER "SLEEPY". PATIENT STATED SHE WANTED TO "SKIP" HER 8PM DOSE TONIGHT OF PERCOCET.
[2019-07-30 20:00] VITALS: BP 103/59
--- NOTE | 2019-07-30 22:17 | NUR ---
24 HR chart check completed.
[2019-07-31] VITALS: BP 117/63
--- NOTE | 2019-07-31 06:32 | NUR ---
ZOFRAN GIVEN PER PATIENT REQUEST FOR COMPLAINTS OF NAUSEA. WILL ASSESS EFFECTIVENESS.
[2019-07-31 06:35] LABS: BASO % 0.1 % (0.0-1.0); HEMATOCRIT 39.4 % (37.0-47.0); HEMOGLOBIN 11.3 g/dl (12.0-16.0); LYMPH # 1.2 10*3/uL (1.3-4.4); LYMPH % 9.5 % (27.0-41.0); MEAN CELL VOLUME 86.2 fl (81.0-99.0); MEAN CORPUSCULAR HGB 24.7 pg (27.0-31.0); MEAN CORPUSCULAR HGB CONC 28.7 g/dl (33.0-37.0); MEAN PLATELET VOLUME 9.5 fl (9.6-12.3); MONO # 0.5 10*3/uL (0.1-1.0); NEUT # 10.7 10*3/uL (2.3-7.9); NEUT % 85.8 % (47.0-73.0); PLATELET COUNT AUTOMATED 338 10*3/uL (130-400); RED BLOOD COUNT 4.57 10*6/uL (4.10-5.10); RED CELL DISTRI WIDTH 17.4 % (0-14.5); WHITE BLOOD COUNT 12.5 10*3/uL (4.8-10.8)
--- NOTE | 2019-07-31 06:55 | NUR ---
DALTONFRAN EFFECTIVE PER PATIENT. RESTING IN BED. CALL LIGHT WITHIN REACH.
[2019-07-31 07:03] LABS: CREATININE 1.32 mg/dL (0.55-1.02); POTASSIUM 4.9 mmol/L (3.5-5.1)
[2019-07-31 12:00] VITALS: BP 118/68
[2019-07-31 16:00] VITALS: BP 124/63
[2019-07-31 20:00] VITALS: BP 114/77
[2019-08-01] VITALS: BP 112/77
--- NOTE | 2019-08-01 01:03 | NUR ---
24 HR chart check completed.
[2019-08-01 06:23] LABS: HEMATOCRIT 37.8 % (37.0-47.0); HEMOGLOBIN 10.5 g/dl (12.0-16.0); LYMPH % 10.6 % (27.0-41.0); MEAN CELL VOLUME 86.9 fl (81.0-99.0); MEAN CORPUSCULAR HGB 24.1 pg (27.0-31.0); MEAN CORPUSCULAR HGB CONC 27.8 g/dl (33.0-37.0); MONO # 0.4 10*3/uL (0.1-1.0); MONO % 3.8 % (3.0-9.0); NEUT # 7.9 10*3/uL (2.3-7.9); PLATELET COUNT AUTOMATED 305 10*3/uL (130-400); RED BLOOD COUNT 4.35 10*6/uL (4.10-5.10); RED CELL DISTRI WIDTH 17.2 % (0-14.5); WHITE BLOOD COUNT 9.3 10*3/uL (4.8-10.8)
[2019-08-01 06:28] LABS: CREATININE 1.35 mg/dL (0.55-1.02); POTASSIUM 5.5 mmol/L (3.5-5.1)
--- NOTE | 2019-08-01 07:00 | NUR ---
ARRIVED ON SHIFT, INTRODUCED TO PATIENT, NO NEEDS VOICED AT THIS TIME. WHITE BOARD UPDATED.
[2019-08-01 08:00] VITALS: BP 108/64
--- NOTE | 2019-08-01 08:27 | NUR ---
Shift chart check completed.
--- NOTE | 2019-08-01 09:00 | NUR ---
Doughnut Dough Mixer in to talk to patient. Patient states lives at home with her son. There are no steps in the home. Physician: Dr. Ayden Bryant [facility] health services: [facility] Patient's level of ADLs: MINIMAL ASSIST Patient has working utilities: yes DME: cane, walker, O2 @ 2L nc, portable O2 tanks, O2 supplier [employer] Follow-up physician's appointment after d/c: will be made by the hospitalist nurse director upon discharge Does patient want to access PORTAL?: no Discharge plan discussed with patient. She lives at home with her son. She is independent in her ADLs and uses a walker for ambulation. She would like a new walker if possible. Notified hospitalist nurse director. Discussed home health care services and she is unsure if she needs home health at this time but has had [facility] in the past and would like them again if needed. When medically stable she will be discharged to home. Her son will provide transportation on discharge. REGLA MONROY
[2019-08-01 12:00] VITALS: BP 112/67
--- NOTE | 2019-08-01 14:44 | NUR ---
PATIENT C/O NAUSEA MEDICATED WITH ZOFRAN ORDERED PRN.
--- NOTE | 2019-08-01 15:54 | NUR ---
PATIENT C/O CONSTIPATION, REQUESTED SOMETHING FOR BOWELS MEDICATED WITH PO DULCOLAX
[2019-08-01 16:00] VITALS: BP 106/77
[2019-08-01 20:00] VITALS: BP 119/67
[2019-08-02] VITALS: BP 148/81
--- NOTE | 2019-08-02 00:45 | NUR ---
PATIENT CRYING WITH SEVERE ABDOMINAL PAIN AND NAUSEA. SMALL EMESIS OF BLOOD. DR. RUTH NOTIFIED AND HERE TO SEE PATIENT. MEDICATED WITH IV ZOFRAN AT THIS TIME.
--- NOTE | 2019-08-02 01:20 | NUR ---
PATIENT MEDICATED WITH IV PROTONIX AND IV FLUID BOLUS OF 0.45 NORMAL SALINE 500CC. RESTING IN BED AT THIS TIME WITH NO FURTHER COMPLAINTS.
--- NOTE | 2019-08-02 03:12 | NUR ---
24 HR chart check completed.
--- NOTE | 2019-08-02 03:51 | NUR ---
[facility]OOD BANK CALLED AND SAID THEY HAD A UNIT OF [facility] ON HOLD FOR PATIENT IF NEEDED.
[2019-08-02 06:53] LABS: HEMATOCRIT 33.5 % (37.0-47.0); HEMOGLOBIN 9.6 g/dl (12.0-16.0); LYMPH % 19.9 % (27.0-41.0); MEAN CORPUSCULAR HGB 24.9 pg (27.0-31.0); MEAN CORPUSCULAR HGB CONC 28.7 g/dl (33.0-37.0); MEAN PLATELET VOLUME 9.1 fl (9.6-12.3); MONO # 1.1 10*3/uL (0.1-1.0); MONO % 10.7 % (3.0-9.0); NEUT # 6.9 10*3/uL (2.3-7.9); NEUT % 68.9 % (47.0-73.0); PLATELET COUNT AUTOMATED 264 10*3/uL (130-400); RED BLOOD COUNT 3.85 10*6/uL (4.10-5.10); RED CELL DISTRI WIDTH 17.5 % (0-14.5); WHITE BLOOD COUNT 10.1 10*3/uL (4.8-10.8)
--- NOTE | 2019-08-02 07:15 | NUR ---
ARRIVED ON SHIFT, INTRODUCED TO PATIENT, WHITE BOARD UPDATED, NO NEEDS VOICED AT THIS TIME. REPORT RECEIVED.
[2019-08-02 07:24] LABS: CREATININE 1.28 mg/dL (0.55-1.02)
[2019-08-02 07:26] LABS: POTASSIUM 4.5 mmol/L (3.5-5.1)
[2019-08-02] MEDS ORDERED: DOXYCYCLINE100 M3 PO (09:10)
[2019-08-02] MEDS ORDERED: MUCINEX ER600 MG PO (09:10)
[2019-08-02] MEDS ORDERED: PREDNISONE10 MG PO (09:10)
--- NOTE | 2019-08-02 09:33 | NUR ---
Shift chart check completed.
--- NOTE | 2019-08-02 10:37 | NUR ---
Discharge instructions reviewed with patient/family. Patient receptive and verbalizes understanding. Follow-up care arranged. Written instructions given to patient/family, IV and telemetry removed, left via w/c accompanied by staff. NAEEM POLO
--- NOTE | 2019-08-02 10:45 | NUR ---
Faxed wheelchair prescription to [facility]
--- NOTE | 2019-08-02 11:37 | NUR ---
Spoke to Estrella Anthony from [facility]. Walker to be delivered on .
== END 2019-08-02 10:37 | disposition home or self-care (01) | DRG 291 ==
LOC: ED 06:35 → 4E 08:57 → EDHOLD 08:57 → 4E 09:17
PROVIDERS: Emergency Medicine; Emergency Medicine Emergency Medical Services; Family Medicine; Internal Medicine; ADMIT Internal Medicine
DX: I11.0 Hypertensive heart disease with heart failure (principal); J18.9 Pneumonia, unspecified organism; I50.31 Acute diastolic (congestive) heart failure; J44.1 Chronic obstructive pulmonary disease with (acute) exacerbation; E44.0 Moderate protein-calorie malnutrition; Z68.43 Body mass index [BMI] 50.0-59.9, adult; J45.901 Unspecified asthma with (acute) exacerbation; J96.11 Chronic respiratory failure with hypoxia; J44.0 Chronic obstructive pulmonary disease with (acute) lower respiratory infection; I48.91 Unspecified atrial fibrillation; E66.01 Morbid (severe) obesity due to excess calories; M54.5 Low back pain; G89.29 Other chronic pain; G62.9 Polyneuropathy, unspecified; G25.81 Restless legs syndrome; M19.90 Unspecified osteoarthritis, unspecified site; E55.9 Vitamin D deficiency, unspecified; D64.9 Anemia, unspecified; K57.90 Diverticulosis of intestine, part unspecified, without perforation or abscess without bleeding; F41.1 Generalized anxiety disorder; J20.9 Acute bronchitis, unspecified; Z96.653 Presence of artificial knee joint, bilateral; Z88.8 Allergy status to other drugs, medicaments and biological substances; Z91.038 Other insect allergy status; Z85.3 Personal history of malignant neoplasm of breast; Z90.49 Acquired absence of other specified parts of digestive tract; Z90.11 Acquired absence of right breast and nipple; Z83.6 Family history of other diseases of the respiratory system

== ENCOUNTER 2019-08-26 15:27 | Inpatient (IN) | payer MEDICARE ==
[~2019-08-26] VITALS: Ht 162.5 cm; Wt 143.8 kg
[2019-08-26] VITALS (7 sets, daily range): BP systolic 119–138; BP diastolic 50–63
[~2019-08-26 15:27] MED LIST changes: +DOXYCYCLINE100 M3 PO; +MUCINEX ER600 MG PO; +PERCOCET 10-321 EACH PO; +POTASSIUM CHLO20 ME4 PO; +PRAMIPEXOLE0.125 MG PO
[2019-08-26 16:04] LABS: BASO % 0.4 % (0.0-1.0); EOS # 0.3 10*3/uL (0.0-0.4); EOS % 5.2 % (1.0-4.0); HEMATOCRIT 37.1 % (37.0-47.0); HEMOGLOBIN 10.5 g/dl (12.0-16.0); LYMPH # 2.1 10*3/uL (1.3-4.4); LYMPH % 39.5 % (27.0-41.0); MEAN CELL VOLUME 86.3 fl (81.0-99.0); MEAN CORPUSCULAR HGB 24.4 pg (27.0-31.0); MEAN CORPUSCULAR HGB CONC 28.3 g/dl (33.0-37.0); MONO # 0.6 10*3/uL (0.1-1.0); MONO % 10.6 % (3.0-9.0); NEUT # 2.4 10*3/uL (2.3-7.9); NEUT % 44.1 % (47.0-73.0); PLATELET COUNT AUTOMATED 325 10*3/uL (130-400); RED CELL DISTRI WIDTH 16.9 % (0-14.5); WHITE BLOOD COUNT 5.4 10*3/uL (4.8-10.8)
[2019-08-26 16:16] LABS: ACT PARTIAL THROMBO TIME 25.4 SECONDS (20.0-32.1)
[2019-08-26 16:20] LABS: ALBUMIN 2.9 gm/dl (3.1-4.5); ALKALINE PHOSPHATASE 60 U/L (45-117); BUN 16 mg/dl (7-24); CHLORIDE 109 mmol/L (98-107); CREATININE 1.15 mg/dL (0.55-1.02); LIPASE 69 U/L (73-393); SGOT/AST 15 IU/L (3-35); SGPT/ALT 19 U/L (12-78); SODIUM 144 mmol/L (136-145); TOTAL PROTEIN 6.7 gm/dL (6.4-8.2)
[2019-08-26 16:21] LABS: TROPONIN I < 0.015 ng/ml (<0.045)
--- NOTE | 2019-08-26 17:35 | NUR ---
Time: 1734 A 74 year old FEMALE admitted to 5E under services of PEPE CALERO DO. Pt. arrived via bed from ER. Chief complaint: LYNDON. ZEYNEP MODI A
[2019-08-26] MEDS ORDERED: LASIX40 MG PO (17:51)
--- NOTE | 2019-08-26 20:20 | NUR ---
PATIENT INSTRUCTED ON FLUTTER VALVE.
--- NOTE | 2019-08-26 21:33 | NUR ---
PATIENT MEDICATED WITH PERCOCET PER REQUEST FOR COMPLAINTS OF BACK AND LEG PAIN. RATES 04/19. WILL CHECK EFFECTIVENESS.
[2019-08-27] VITALS: BP 90/52
--- NOTE | 2019-08-27 05:24 | NUR ---
UNABLE TO FLUSH PATIENTS IV. NEW IV STARTED IN LEFT AC. PT. TOLERATED WELL.
[2019-08-27 06:37] LABS: HEMOGLOBIN 10.7 g/dl (12.0-16.0); LYMPH # 1.1 10*3/uL (1.3-4.4); LYMPH % 21.4 % (27.0-41.0); MEAN CELL VOLUME 84.9 fl (81.0-99.0); MEAN CORPUSCULAR HGB 24.5 pg (27.0-31.0); MEAN CORPUSCULAR HGB CONC 28.9 g/dl (33.0-37.0); MEAN PLATELET VOLUME 8.8 fl (9.6-12.3); MONO # 0.1 10*3/uL (0.1-1.0); MONO % 1.5 % (3.0-9.0); NEUT # 4.1 10*3/uL (2.3-7.9); NEUT % 76.7 % (47.0-73.0); PLATELET COUNT AUTOMATED 341 10*3/uL (130-400); RED BLOOD COUNT 4.36 10*6/uL (4.10-5.10); RED CELL DISTRI WIDTH 16.5 % (0-14.5); WHITE BLOOD COUNT 5.3 10*3/uL (4.8-10.8)
[2019-08-27 06:47] LABS: CREATININE 1.26 mg/dL (0.55-1.02); PHOSPHOROUS 2.2 mg/dL (2.5-4.9); POTASSIUM 4.3 mmol/L (3.5-5.1)
[2019-08-27 08:00] VITALS: BP 139/86
--- NOTE | 2019-08-27 10:52 | NUR ---
C/O PAIN TO LEGS, BACK AND NECK OF 03/19. PERCOCET GIVEN AT THIS TIME. WILL CONT TO MONITOR. CALL LIGHT IN REACH.
--- NOTE | 2019-08-27 11:52 | NUR ---
PERCOCET EFF AT THIS TIME. WILL CONT TO MONITOR. CALL LIGHT IN REACH.
[2019-08-27 12:00] VITALS: BP 130/71
--- NOTE | 2019-08-27 12:20 | NUR ---
Patient resides at home with her son. Pt states that she is struggling at home due to generalized weakness. Pt does have a hospital bed, home O2, and a walker. Pt is hoping that she qualifies for SNF with [facility]. Pt stated that she does not have a second choice.
[2019-08-27 16:00] VITALS: BP 103/52
[2019-08-27 20:00] VITALS: BP 105/55
--- NOTE | 2019-08-27 21:12 | NUR ---
PATIENT'S BLOOD PRESSURE IS 105/55 AND HEART RATE 90. CALLED AND SPOKE WITH DR BOYKIN ABOUT PATIENT'S SCHEDULED DOSE OF TOPROL 50 MG AND WHETHER TO HOLD IT OR ADMINISTER THE MEDICATION TO THE PATIENT. DR BOYKIN GAVE ORDERS TO HOLD THE TOPROL AND TO MONITOR THE PATIENT'S HEART RATE. IF THE PATIENT'S HEART RATE GOES UP TO OR ABOVE 110 TO LET HIM KNOW. WILL CONTINUE TO MONITOR THE PATIENT.
[2019-08-27 21:47] VITALS: BP 124/72
--- NOTE | 2019-08-27 21:54 | NUR ---
ATIVAN GIVEN PER PATIENT REQUEST FOR COMPLAINTS OF ANXIETY. WILL ASSESS EFFECTIVENESS.
[2019-08-28] VITALS: BP 114/64
[2019-08-28 06:43] LABS: BASO % 0.2 % (0.0-1.0); HEMATOCRIT 34.7 % (37.0-47.0); HEMOGLOBIN 10.1 g/dl (12.0-16.0); LYMPH # 1.1 10*3/uL (1.3-4.4); LYMPH % 9.6 % (27.0-41.0); MEAN CELL VOLUME 84.6 fl (81.0-99.0); MEAN CORPUSCULAR HGB 24.6 pg (27.0-31.0); MEAN CORPUSCULAR HGB CONC 29.1 g/dl (33.0-37.0); MEAN PLATELET VOLUME 8.9 fl (9.6-12.3); MONO # 0.7 10*3/uL (0.1-1.0); MONO % 6.1 % (3.0-9.0); NEUT # 9.4 10*3/uL (2.3-7.9); NEUT % 83.6 % (47.0-73.0); PLATELET COUNT AUTOMATED 325 10*3/uL (130-400); RED CELL DISTRI WIDTH 16.3 % (0-14.5); WHITE BLOOD COUNT 11.3 10*3/uL (4.8-10.8)
[2019-08-28 07:00] LABS: CREATININE 1.24 mg/dL (0.55-1.02); POTASSIUM 4.3 mmol/L (3.5-5.1)
[2019-08-28 08:00] VITALS: BP 136/83
--- NOTE | 2019-08-28 08:25 | NUR ---
DR. TORRE IN TO SEE PATIENT. PT COMPLAIN OF "SHAKEY" FEELING. SOB NOTED WITH TALKING. DRY/HACKING COUGH NOTED. PT ON NC 4 LITERS.
--- NOTE | 2019-08-28 08:33 | NUR ---
PT REQUESTED PRN ATIVAN, WILL MONITOR FOR EFFECTIVENESS
--- NOTE | 2019-08-28 09:30 | NUR ---
PT STATES NO NEEDS, ATIVAN EFFECTIVE
--- NOTE | 2019-08-28 11:00 | NUR ---
PHYSICAL THERAPY PT EVAL COMPLETED TODAY ON LEVEL 5: FULL EVAL TO FOLLOW. RECOMMEND PT WHILE HERE TO ADDRESS DECREASED STRENGTH, ENDURANCE, BALANCE AND THUS DECREASED FUNCTIONAL MOBILITY. PT EVAL IS MODERATE COMPLEXITY: [id number] D/C RECOMMENDATIONS ARE FOR SNF ON D/C TO REGAIN PLOF. THANK YOU FOR REFERRAL ADRIAN CELAYA PT
[2019-08-28 12:00] VITALS: BP 135/88
[2019-08-28 16:00] VITALS: BP 133/69
--- NOTE | 2019-08-28 18:04 | NUR ---
VANC RUNNING, UNABLE TO DOCUMENT DUE TO COMPUTER DISCONNECTING FROM INTERNET AND LOCKED IN SCREEN AFTER MEDICATION SCANNED.
--- NOTE | 2019-08-28 19:15 | NUR ---
24 HR CHART CHECK COMPLETE.
[2019-08-28 20:00] VITALS: BP 123/69
--- NOTE | 2019-08-28 20:36 | NUR ---
PT IS AWAKE AND SITTING UP IN BED AT THIS TIME. SHE STATES THAT SHE EXPERIENCING SOME PAIN IN HER BACK FROM COUGHING. PATIENT IS ADMINISTERED PRN PERCOCET AT THIS TIME. BED IS LOW, CALL LIGHT WITHIN REACH. WILL MONITOR FOR EFFECTIVENESS.
--- NOTE | 2019-08-28 21:30 | NUR ---
PT IS ASLEEP IN BED AT THIS TIME. PRN PERCOCET IS EFFECTIVE.
--- NOTE | 2019-08-28 23:30 | NUR ---
PT RESTING IN BED. VOICES NO CONCERNS AT THIS TIME. RESPS EASY AND NON LABORED. NO S/S OF DISTRESS NOTED. OXYGEN 3L VIA NASAL CANNULA INTACT. WHITE BOARD UPDATED. CALL LIGHT WITHIN REACH
[2019-08-29] VITALS: BP 147/89
--- NOTE | 2019-08-29 03:38 | NUR ---
MEDICATED WITH PRN PERCOCET FOR C/O BACK PAIN RATED 6/10 ON A 0/10 PAIN SCALE. WILL MONITOR
--- NOTE | 2019-08-29 04:30 | NUR ---
PERCOCET EFFECTIVE PER PT
--- NOTE | 2019-08-29 05:37 | NUR ---
Hep Lock discontinued. Site asymptomatic. Pressure applied. Sterile dressing applied. ARELI MUÑOZ IV started left forearm with #24 protective cath after 1 attempts. Site prepped with Chloroprep. Sterile dressing applied. Patient tolerated procedure well. ARELI MUÑOZ
[2019-08-29 07:23] LABS: BASO % 0.1 % (0.0-1.0); HEMATOCRIT 34.2 % (37.0-47.0); HEMOGLOBIN 9.9 g/dl (12.0-16.0); LYMPH # 1.1 10*3/uL (1.3-4.4); LYMPH % 11.1 % (27.0-41.0); MEAN CELL VOLUME 84.7 fl (81.0-99.0); MEAN CORPUSCULAR HGB 24.5 pg (27.0-31.0); MEAN CORPUSCULAR HGB CONC 28.9 g/dl (33.0-37.0); MONO # 0.7 10*3/uL (0.1-1.0); MONO % 6.8 % (3.0-9.0); NEUT # 7.8 10*3/uL (2.3-7.9); NEUT % 81.7 % (47.0-73.0); PLATELET COUNT AUTOMATED 345 10*3/uL (130-400); RED BLOOD COUNT 4.04 10*6/uL (4.10-5.10); RED CELL DISTRI WIDTH 16.4 % (0-14.5); WHITE BLOOD COUNT 9.6 10*3/uL (4.8-10.8)
[2019-08-29 07:32] LABS: CREATININE 1.12 mg/dL (0.55-1.02); POTASSIUM 4.5 mmol/L (3.5-5.1)
[2019-08-29 08:00] VITALS: BP 153/75
--- NOTE | 2019-08-29 08:06 | NUR ---
PER PT Patient would like to be referred to [facility], per Case Management history patient may be out of network. JEWEL BEARING TURNER faxed Demographics to [facility] to check benefits. -SHELBY Meng
--- NOTE | 2019-08-29 09:00 | NUR ---
Yarn Spinner in to see patient. Discussed short term SNF and she is agreeable and wants to go to [facility]. [facility] per rn social services is not in her insurance network. She states that is the reason she got that insurance was because [facility] was in network. Explained let CM follow up to make sure with rn social services to clarify. If she is not able to go to [facility] then she wants a RN/PT from [facility] as she has had them in the past.
--- NOTE | 2019-08-29 09:17 | NUR ---
Patient is out of network with all [facility] facilities. She does not have any out of network benefits. -SHELBY Meng
--- NOTE | 2019-08-29 10:50 | NUR ---
PHYSICAL THERAPY TREATMENT TIME: 10:30 AM - 10:50 AM 20 MINUTES TOTAL. Patient presented to therapy in supine with head of bed elevated and no bed alarm. Patient is on 2.5 liters of spO2 VIA NASAL CANULA. Patient was identified by name and on wristband. Patient gives informed consent for treatment. Patient performed supine to sitting at EOB transfer with SBA. Patient sat on EOB with SBA. Patient sit to stand from EOB with CGA X 1. Patient ambulated into restroom and transferred on and off the commode with CGA X 1. Patient then ambulated with Wh Walker to EOB where she had to sit due to SOB and fatigue. Patient sat for about 3 minutes and then sit to stand from EOB with CGA X 1 to SBA. Patient ambulated with Wh Walker and CGA X 1 for 60' x 1 and then 1 standing rest break and another gait of 40' x 1 with Wh Walker and CGA X 1 with increased SOB and O2 SAT dropping to 92% post ambulation. Patient's O2 sat recovered to 98% WITHIN 45 SECONDS and pulse at 72. Patient transferred into bedside chair with SBA. Patient was left in bedside chair with call light within reach, O2 connected to wall outlet with 2.5 liters of spO2 VIA NASAL CANULA. Patient was 1:1 with this RESOURCE ECONOMIST for 20 minutes total. MARSHA SMITH RESOURCE ECONOMIST
--- NOTE | 2019-08-29 11:00 | NUR ---
Occupational therapy orders received and OT evaluation completed in full on floor five. Patient precautions include fall risk, WW use, 3LO2, SOB, and weakness. Per OT eval, OT recommends a SNF. If refused, home with HH SN, OT, and PT. Patient would benefit from continued OT treatment to maximize safety and independence with ADLs, mobility, and transfers. Patient complexity is low, [id number]. Thank you. Colette Morel, OTR/L
--- NOTE | 2019-08-29 11:48 | NUR ---
PRN PERCOCET GIVEN FOR A PAIN LEVEL OF 6/10. PAIN IS LOCATED IN THE LOWER BACK. WILL REASSESS EFFECTIVENESS OF MEDICATION
[2019-08-29 12:00] VITALS: BP 125/71
--- NOTE | 2019-08-29 12:19 | NUR ---
Discussed [facility] is in patient's insurance network but there is no current bed availability. Patient stated "my daughter, Jessica Nur, works there and I will call her." size worker notified.
[2019-08-29 16:00] VITALS: BP 144/77
--- NOTE | 2019-08-29 19:05 | NUR ---
24 HR chart check completed.
[2019-08-29 20:00] VITALS: BP 141/84
[2019-08-30 06:42] LABS: CREATININE 1.2 mg/dL (0.55-1.02); POTASSIUM 4.4 mmol/L (3.5-5.1)
[2019-08-30 08:00] VITALS: BP 110/51
--- NOTE | 2019-08-30 08:54 | NUR ---
Auger Operator in to see patient. Discussed patient speaking with her daughter yesterday regarding bed availability at [facility]. She stated her daughter thought she could go to the facility on [address] and then transfer to [facility] when a bed became available. ash worker notified and stated [facility] are not in her insurance network and she has no out of network benefits. Discussed with patient the above and patient would like to go home with [facility]. She wants a nurse and therapy. Notified hospitalist nurse director.
--- NOTE | 2019-08-30 11:23 | NUR ---
MEDICATED WITH PRN PO PERCOCET FOR BACK PAIN.
[2019-08-30 12:00] VITALS: BP 119/66
--- NOTE | 2019-08-30 14:07 | NUR ---
OT NOTE Pt was seen this P.M. 1:1 for 24 minute OT session. Upon arrival pt was sitting upright in the recliner. Pt identified by name and and had no complaints at this time. Pt presented to therapy with continuous 2L-O2 via NC which she remained on throughout the entire session. Resting SpO2 was 100%. Pt completed sit to stand from chair level with Ruby and use of w/w for UE support. Functional mobility was then completed into the bathroom with CGA and use of w/w with one verbal prompt for O2 line management. Pt presented with good carry over throughout. Pt transferred on to standard commode with CGA and use of grab bar for UE support. Clothing management completed with CGA. Pt then stood sink side while washing her hands with CGA. Functional mobility was then completed back to the recliner with CGA and use of w/w. Challenged pt's static standing tolerance needed for increased I in self care tasks and functional transfers, pt was able to tolerate aprox 5 minutes before sitting due to fatigue. Pt's SpO2 throughout activity dropped to 92% and within 15 seconds raised to 97%. Pt doffed and donned B socks while sitting EOB with leg up to the EOB. Challenged pt's dynamic standing balance needed for enhanced safety, while weight shifting, crossing midline, and reaching over all planes pt was able to maintain G-/F+ standing balance. pt was left sitting upright in the recliner with call light in hand, tray table in place, and phone in reach. Continue with POC as able. JOHANNA Weems
--- NOTE | 2019-08-30 14:07 | NUR ---
PHYSICAL THERAPY 1:1 Time: 20 Pain on a scale of 0-10 > Prior to treatment: 0/10 Post treatment: 0/10 Progress note: Pt in chair next to bed upon therapist arrival. Pt wearing nasal cannula w 3L O2. TEAM ASSEMBLER occompanied by PASTOR today. Pt completed seated exercises for ankles to promote increased blood flow. Pt transferred to standing positon and performed stand balance activities, SBA. Pt demonstrated good balance w no lob for ADLs. Pt transferred well w no complaints, use of UEs and aware of safe transfers. Pt ambulated to and from bathroom safely w WW and SBA, and again to door and back also w WW and SBA. Pt demonstrates a little sob however pulse ox at 92-100%. Pt completed standing heel/toe raises and 90 stand balnce w no ue support w wavering or lob. Pt to cont per poc at her tolerance for strength balance and endurance. MERISSA LUCAS, TEAM ASSEMBLER
[2019-08-30] MEDS ORDERED: DOXYCYCLINE100 M3 PO (14:38)
[2019-08-30] MEDS ORDERED: PREDNISONE10 MG PO (14:38)
--- NOTE | 2019-08-30 16:30 | NUR ---
Discharge instructions reviewed with patient/family. Patient receptive and verbalizes understanding. Follow-up care arranged. Written instructions given to patient/family. PATIENT DISCHARGED TO [facility] BY WHEELCHAIR, ACCOMPANIED BY PSA, FOR TRANSPORT HOME BY PRIVATE VEHICLE WITH FAMILY MEMBER. CHETAN WEBER
--- NOTE | 2019-08-31 07:34 | NUR ---
OCCUPATIONAL THERAPY CO-SIGN I approve of the Occupational Therapy notes written above. Colette Morel, OTR/L
--- NOTE | 2019-08-31 07:34 | NUR ---
PHYSICAL THERAPY CO-SIGN I approve of the Physical Therapy notes written above. Jenniffer Arzate PT
--- NOTE | 2019-08-31 08:34 | NUR ---
Faxed new home health care referral to [facility]
== END 2019-08-30 18:03 | disposition home health service (06) | DRG 70 ==
LOC: ED 15:27 → EDHOLD 16:29 → 5E 16:29
PROVIDERS: Emergency Medicine; Family Medicine; Internal Medicine; Student in an Organized Health Care Education/Training Program; ADMIT Internal Medicine
DX: G93.41 Metabolic encephalopathy (principal); J18.9 Pneumonia, unspecified organism; I50.31 Acute diastolic (congestive) heart failure; J44.1 Chronic obstructive pulmonary disease with (acute) exacerbation; I13.0 Hypertensive heart and chronic kidney disease with heart failure and stage 1 through stage 4 chronic kidney disease, or unspecified chronic kidney disease; E87.3 Alkalosis; E44.0 Moderate protein-calorie malnutrition; Z68.43 Body mass index [BMI] 50.0-59.9, adult; J44.0 Chronic obstructive pulmonary disease with (acute) lower respiratory infection; D64.9 Anemia, unspecified; E87.8 Other disorders of electrolyte and fluid balance, not elsewhere classified; R73.9 Hyperglycemia, unspecified; E83.41 Hypermagnesemia; K21.9 Gastro-esophageal reflux disease without esophagitis; K44.9 Diaphragmatic hernia without obstruction or gangrene; I48.0 Paroxysmal atrial fibrillation; F41.9 Anxiety disorder, unspecified; M54.9 Dorsalgia, unspecified; G89.29 Other chronic pain; G62.9 Polyneuropathy, unspecified; G25.81 Restless legs syndrome; M19.90 Unspecified osteoarthritis, unspecified site; N18.3 Chronic kidney disease, stage 3 (moderate); Z96.653 Presence of artificial knee joint, bilateral; Z85.3 Personal history of malignant neoplasm of breast; Z90.11 Acquired absence of right breast and nipple; Z90.49 Acquired absence of other specified parts of digestive tract; Z83.6 Family history of other diseases of the respiratory system; Z83.79 Family history of other diseases of the digestive system; Z88.8 Allergy status to other drugs, medicaments and biological substances; Z91.041 Radiographic dye allergy status; Z79.899 Other long term (current) drug therapy

== ENCOUNTER 2019-09-26 09:03 | Inpatient (IN) | payer MEDICARE ==
[2019-09-26] VITALS (7 sets, daily range): BP systolic 110–151; BP diastolic 50–72
[~2019-09-26] VITALS: Ht 162.5 cm; Wt 144.8 kg
[2019-09-26 09:39] LABS: BASO % 0.5 % (0.0-1.0); EOS # 0.3 10*3/uL (0.0-0.4); EOS % 4.7 % (1.0-4.0); HEMATOCRIT 37.3 % (37.0-47.0); HEMOGLOBIN 10.8 g/dl (12.0-16.0); LYMPH # 2.3 10*3/uL (1.3-4.4); LYMPH % 38.5 % (27.0-41.0); MEAN CELL VOLUME 84.4 fl (81.0-99.0); MEAN CORPUSCULAR HGB 24.4 pg (27.0-31.0); MEAN PLATELET VOLUME 8.3 fl (9.6-12.3); MONO # 0.7 10*3/uL (0.1-1.0); MONO % 12.5 % (3.0-9.0); NEUT # 2.6 10*3/uL (2.3-7.9); NEUT % 43.6 % (47.0-73.0); PLATELET COUNT AUTOMATED 294 10*3/uL (130-400); RED BLOOD COUNT 4.42 10*6/uL (4.10-5.10); RED CELL DISTRI WIDTH 16.8 % (0-14.5); WHITE BLOOD COUNT 5.9 10*3/uL (4.8-10.8)
[2019-09-26 09:50] LABS: ACT PARTIAL THROMBO TIME 25.6 SECONDS (20.0-32.1); INTERNATIONAL NORM RATIO 1.1 (2.0-3.5)
[2019-09-26 09:53] LABS: ALBUMIN 3.1 gm/dl (3.1-4.5); ALKALINE PHOSPHATASE 60 U/L (45-117); BUN 14 mg/dl (7-24); CHLORIDE 108 mmol/L (98-107); CREATININE 1.16 mg/dL (0.55-1.02); LIPASE 63 U/L (73-393); POTASSIUM 3.6 mmol/L (3.5-5.1); SGOT/AST 17 IU/L (3-35); SGPT/ALT 16 U/L (12-78); SODIUM 143 mmol/L (136-145); TOTAL PROTEIN 6.7 gm/dL (6.4-8.2)
[2019-09-26 09:56] LABS: TROPONIN I < 0.015 ng/ml (<0.045)
[2019-09-26] MEDS ORDERED: LORAZEPAM2 MG PO (12:27)
[2019-09-26] MEDS ORDERED: FUROSEMIDE20 M1 PO (12:27)
[2019-09-26] MEDS ORDERED: LOPRESSOR50 M1 PO (12:28)
[2019-09-26] MEDS ORDERED: MUCINEX ER600 MG PO (12:30)
--- NOTE | 2019-09-26 13:20 | NUR ---
A 74, admitted to , under the services of ANGELINE Kauffman MD with a diagnosis of COPD. Chief complaint is SHORTNESS OF BREATH, COUGH. Patient arrived via bed from ER. Monitor applied. Initial assessment completed. Vital signs taken and recorded. ANGELINE KAUFFMAN MD notified of admission to the unit. Orders received. See assessment for past medical history, medications and allergies. Patient and/or family oriented to unit. [facility] visitation policy reviewed. Clothing/patient valuable form completed. IKER ACUÑA
--- NOTE | 2019-09-26 15:45 | NUR ---
PATIENT INSTRUCTED ON FLUTTER VALVE.
--- NOTE | 2019-09-26 17:33 | NUR ---
PT MEDICATED WITH PO PERCOCET PER ORDER FOR COMPLAINTS OF BILAT LEG PAIN 01/17. WILL MONITOR.
--- NOTE | 2019-09-26 18:30 | NUR ---
PER PATIENT, PRN MEDICATION HAS BEEN EFFECTIVE. NO FURTHER COMPLAINTS AT THIS TIME.
--- NOTE | 2019-09-26 19:31 | NUR ---
PATIENT RESTING IN BED. DENIES ANY NEEDS AT THIS TIME. STATES "CAN I HAVE A NERVE PILL BEFORE BEDTIME". BED IN LOWEST POSITION, CALL LIGHT IN REACH
--- NOTE | 2019-09-26 21:26 | NUR ---
PATIENT MEDICATED WITH PRN PERCOCET FOR C/O LEG AND BACK PAIN, AND ATIVAN FOR C/O ANXIETY
[2019-09-27] VITALS: BP 121/67
--- NOTE | 2019-09-27 00:25 | NUR ---
PATIENT STATES MEDICATIONS WERE EFFECTIVE
--- NOTE | 2019-09-27 00:47 | NUR ---
24 HR chart check completed.
[2019-09-27 06:43] LABS: CREATININE 1.52 mg/dL (0.55-1.02); POTASSIUM 4.1 mmol/L (3.5-5.1)
[2019-09-27 06:45] LABS: HEMATOCRIT 40.2 % (37.0-47.0); HEMOGLOBIN 11.5 g/dl (12.0-16.0); LYMPH # 1.3 10*3/uL (1.3-4.4); LYMPH % 18.1 % (27.0-41.0); MEAN CELL VOLUME 83.4 fl (81.0-99.0); MEAN CORPUSCULAR HGB 23.9 pg (27.0-31.0); MEAN CORPUSCULAR HGB CONC 28.6 g/dl (33.0-37.0); MEAN PLATELET VOLUME 9.1 fl (9.6-12.3); MONO # 0.2 10*3/uL (0.1-1.0); MONO % 2.2 % (3.0-9.0); NEUT # 5.8 10*3/uL (2.3-7.9); NEUT % 79.3 % (47.0-73.0); RED BLOOD COUNT 4.82 10*6/uL (4.10-5.10); RED CELL DISTRI WIDTH 16.6 % (0-14.5); WHITE BLOOD COUNT 7.4 10*3/uL (4.8-10.8)
[2019-09-27 06:50] LABS: PLATELET COUNT AUTOMATED 414 10*3/uL (130-400)
[2019-09-27 08:00] VITALS: BP 125/72
--- NOTE | 2019-09-27 08:06 | NUR ---
PHYSICAL THERAPY Screen and eval received will follow thank you Jenniffer Arzate PT
--- NOTE | 2019-09-27 08:45 | NUR ---
Occupational therapy orders received and OT evaluation completed in full on floor five. PAtient precautions include FALL RISK, WW USE, 3LO2, RIGHT MASTECTOMY, BED/CHAIR ALARM, SOB. Per OT evranjit, OT recommends SNF. [place] complexity [place] mod, 00242. Thank you for the referral. Colette Morel, OTR/L
--- NOTE | 2019-09-27 09:30 | NUR ---
PT MEDICATED WITH PERCOCET AT THIS TIME PER PRN ORDER FOR PAIN IN BACK/LEGS 01/17. WILL MONITOR.
--- NOTE | 2019-09-27 10:30 | NUR ---
Locum Tenens in to talk to patient. Patient states lives at home with her son. There are no steps in the home. Physician: Dr. Ayden Bryant [facility] Home health services: currently [facility] Patient's level of ADLs: MINIMAL ASSIST Patient has working utilities: yes DME: cane, walker, O2 @ 2L nc, portable O2 tanks, O2 supplier [facility] [place] Follow-up physician's appointment after d/c: will be made by the hospitalist nurse director upon discharge Does patient want to access PORTAL?: no Discharge plan discussed with patient. She lives at home with her son. She is independent in her ADLs and uses a walker for ambulation. Discussed short term SNF and she is agreeable. She wants to go to [facility] and no where else. She states her daughter who works there said there is a bed reserved for her. Notified systems planner. She states he son can provide transportation if needed. REGLA MONROY
--- NOTE | 2019-09-27 10:45 | NUR ---
PER PATIENT, PRN PERCOCET HAS BEEN EFFECTIVE. CALL LIGHT IN REACH.
--- NOTE | 2019-09-27 10:53 | NUR ---
Contacted Jossie at [facility] regarding a bed for this patient. She stated they have a "planned" discharge for [facility] tomorrow and are anticipating an opening. I faxed her patients initial referral to review, requires PT/OT dru and elli. Will fax PT/OT when available.
[2019-09-27 12:00] VITALS: BP 136/78
[2019-09-27 12:23] LABS: CLARITY SL CLOUDY (CLEAR); COLOR YELLOW (YELLOW); GLUCOSE NEGATIVE (NEGATIVE)
[2019-09-27 12:24] LABS: BILIRUBIN NEGATIVE (NEGATIVE); BLOOD NEGATIVE (NEGATIVE); KETONE NEGATIVE (NEGATIVE); LEUKO ESTERASE NEGATIVE (NEGATIVE); NITRITE NEGATIVE (NEGATIVE); PH 5.5 (5.0-9.0); SPECIFIC GRAVITY 1.025 (1.005-1.030); UROBILINOGEN 0.2 E.U./dl (0.2-1.0)
[2019-09-27 12:25] LABS: BACTERIA TRACE; HYALINE CAST 20-30; MUCOUS TRACE
--- NOTE | 2019-09-27 14:54 | NUR ---
PHYSICAL THERAPY Shiv completed moderate level of complexity [id number] recomend SNF at discharge PT to work on transfers,abm and strenghtening Jenniffer Arzate PT
[2019-09-27 16:00] VITALS: BP 99/57
--- NOTE | 2019-09-27 16:18 | NUR ---
PT MEDICATED WITH PO PERCOCET AT THIS TIME PER ORDER FOR COMPLAINTS OF BACK PAIN 12/17. WILL MONITOR.
--- NOTE | 2019-09-27 17:30 | NUR ---
PER PATIENT, PRN PERCOCET HAS BEEN EFFECTIVE.
[2019-09-27 20:00] VITALS: BP 107/61
--- NOTE | 2019-09-27 21:42 | NUR ---
MEDICATED WITH PRN PERCOCET AND ATIVAN FOR C/O ANXIOUSNESS AND PAIN.WILL MONITOR
[2019-09-28] VITALS: BP 138/77
[2019-09-28 07:21] LABS: POTASSIUM 4.4 mmol/L (3.5-5.1)
[2019-09-28 07:24] LABS: CREATININE 1.18 mg/dL (0.55-1.02)
[2019-09-28 08:00] VITALS: BP 135/81
--- NOTE | 2019-09-28 08:50 | NUR ---
PT SITTING UP IN RECLINER CHAIR. DR. WHITMORE INTO SEE PT. C/O BACK PAIN, RATES PAIN 8 ON PAIN SCALE 0-10. MEDICATED WITH PERCOCET PO PER PRN ORDER, SEE EMAR. TOLERATED ROUTINE MEDICATIONS. RESP-EASY AND REGULAR, OXYGEN IN USE. CALL LIGHT IN REACH. SEE SHIFT ASSESSMENT.
--- NOTE | 2019-09-28 09:37 | NUR ---
Patient therapy evals and updates faxed to [facility] to complete referral. Requires precert. [facility] stating they have a planned discharge from [facility] today and they have to wait on the discharge before they will have an available bed for this patient. Patient stating she will only to to [facility] where her daughter works.
--- NOTE | 2019-09-28 09:45 | NUR ---
RESTING IN BED. STATES PAIN MEDICATION HELPS. NO OTHER C/O AT THIS TIME. CALL LIGHT IN REACH.
--- NOTE | 2019-09-28 10:00 | NUR ---
OT NOTE Pt was seen this A.M. 1:1 for 20 minute OT session. Upon arrival pt was supine in bed. Pt identified by name and and had complaints of 6/10 low back pain. Pt presented to therapy with continuous 4L-O2 via NC which she remained on throughout the entire session. Pt's resting SpO2 was 97% and heart rate 73 bpm. Pt transferred supine to sit EOB with Ruby for assist with UB. While sitting EOB pt donned socks and shoes with SBA while bringing leg up to bed level. Sit to stand completed from bed level with CGA and use of w/w for UE support. Functional mobility was then completed into the bathroom with CGA and use of w/w. Throughout pt had to take two standing rest breaks due to quick onset of fatigue and feeling SOB. Pt transferred on to standard commode with CGA, while turning in tight spaces in the bathroom pt had two LOB that required Ruby to correct. Pt was educated on safe turning technique which pt presented with fair carry over. Pt's SpO2 was 89% and heart rate 89 bpm, after aprox 30 seconds pt's SpO2 raised to 97%. Pt then tranferred off standard commode with CGA and use of grab bar for UE support. Clothing management completed with CGA due to being unsteady without UE support. Pt then stood sink side while washing her hands, throughout pt had two LOB that occured backwards while standing without UE support, LOB was corrected with Ruby. Functional mobility was then completed back to the EOB for a seated rest break. Challenged pt's static standing tolerance needed for increased I in self care tasks and functional transfers and pt was able to tolerate aprox 3 minutes at a time before sitting due to fatigue. Pt transferred sit to supine with SBA. There she was left with call light in hand, tray table in place, and phone in reach. Continue with rec D/C plan to SNF. JOHANNA Weems
[2019-09-28 12:00] VITALS: BP 118/72
--- NOTE | 2019-09-28 12:43 | NUR ---
PT UPSET CRYING STATES FAMILY MEMBER GOT TAKEN TO HOSPITAL AND SHE IS ANXIOUS. MEDICATED WTIH ATIVAN PER HER REQUEST. SEE EMAR. CALL LIGHT IN REACH.
--- NOTE | 2019-09-28 13:30 | NUR ---
RESTING IN CHAIR. STATES MEDICATION HELPED. CALL LIGHT IN REACH.
--- NOTE | 2019-09-28 14:21 | NUR ---
wastewater manager in to see patient. Discussed her transfer to [facility] is pending completion of the [place] PAS[place] and authorization from her insurance company. She verbalized an understanding. When medically stable and authorization is obtained from her insurance along with completion of the [place] she will be discharged to [facility]. systems requirements planner following.
--- NOTE | 2019-09-28 15:07 | NUR ---
Patient's bed at [facility] is now available, her [place] H[place] has cleared and she has received auth from insurance. However, the facililty does not have a wheel chair big enough for patient right now, they are checking their other facilities for an XL wheel chair, if not they have to order one and it will not be in until tomorrow. [facility] is stating plan on discharge for 09/29/19.
--- NOTE | 2019-09-28 15:12 | NUR ---
Patients room is available at [facility], [place] pass[place]rr has cleared, auth has been received, XL wheel chair is on site. Patient is ok to go if medically stable for discharge.
[2019-09-28] MEDS ORDERED: ZITHROMAX500 MG PO (15:22)
[2019-09-28] MEDS ORDERED: FUROSEMIDE40 MG PO (15:26)
[2019-09-28] MEDS ORDERED: VITAMIN D32000 UNI1 PO (15:26)
[2019-09-28] MEDS ORDERED: LORAZEPAM2 MG PO (15:26)
[2019-09-28] MEDS ORDERED: PERCOCET 10-321 EACH PO (15:26)
[2019-09-28 16:00] VITALS: BP 139/79
--- NOTE | 2019-09-28 16:10 | NUR ---
PT SITTING UP IN RECLINER CHAIR. OXYGEN IN USE. NO C/O AT THIS TIME. CALL LIGHT IN REACH. SEE SHIFT ASSESSMENT.
[2019-09-28 20:00] VITALS: BP 127/90
--- NOTE | 2019-09-28 21:20 | NUR ---
PT C/O BACK PAIN, RATES PAIN 8 ON PAIN SCALE 0-10. MEDICATED WITH PERCOCET PO PT REQUEST. TOLERATED ROUTINE MED WITH NO PROBLEM. CALL LIGHT IN REACH.
--- NOTE | 2019-09-28 22:15 | NUR ---
RESTING IN BED. STATES PAIN MEDICATION HELPS. CALL LIGHT IN REACH.
--- NOTE | 2019-09-28 23:26 | NUR ---
RECEIVED REPORT FROM TIMMY JIMENEZ. PATIENT AWAKE, LAYING IN BED. VOICES NO COMPLAINTS. RESPIRATIONS EASY,NON LABORED. NO SIGNS OF DISTRESS. BED IN LOWEST POSITION, CALL LIGHT WITHIN REACH. WILL CONTINUE TO MONITOR.
[2019-09-29] VITALS: BP 117/84
--- NOTE | 2019-09-29 06:02 | NUR ---
PATIENT C/O BACK PAIN. RATES 04/19. MEDICATED WITH PERCOCET@[email or web address]. WILL CHECK EFFECTIVENESS.
[2019-09-29 08:00] VITALS: BP 152/74
[2019-09-29] MEDS ORDERED: PREDNISONE10 MG PO (08:58)
[2019-09-29] MEDS ORDERED: Ipratropium Brom3 ML INH (08:58)
[2019-09-29] MEDS ORDERED: NEBULIZER INH (08:58)
--- NOTE | 2019-09-29 10:30 | NUR ---
Per multidisciplinary discharge planning meeting patient is possibly going to be discharged today to [facility]. vacation planner following.
--- NOTE | 2019-09-29 11:04 | NUR ---
PAIN MEDICATION PER PHYSICIAN ORDER. PT C/O GENERALIZED PAIN, 02/16.
[2019-09-29 12:00] VITALS: BP 138/72
--- NOTE | 2019-09-29 13:13 | NUR ---
Patient is discharged to [facility] at 2:30 pm. NH, nursing/port warden and daughter all notified.
--- NOTE | 2019-09-29 14:38 | NUR ---
Discharge instructions reviewed with patient/family. Patient receptive and verbalizes understanding. Follow-up care arranged. Written instructions given to patient/family. KORY MOROCHO
--- NOTE | 2019-09-29 14:56 | NUR ---
Report called to STEFFANY Peters,at [facility].
--- NOTE | 2019-09-30 07:39 | NUR ---
PHYSICAL THERAPY CO-SIGN I approve of the Physical Therapy notes written above. Jenniffer Arzate PT
--- NOTE | 2019-09-30 08:17 | NUR ---
OCCUPATIONAL THERAPY CO-SIGN I approve of the Occupational Therapy notes written above. MARIA VICTORIA NG OTR/Mk
== END 2019-09-29 15:15 | disposition other institution (70) | DRG 871 ==
LOC: ED 09:03 → 5E 11:41 → EDHOLD 11:41 → 5E 13:01
PROVIDERS: Emergency Medicine; Family Medicine; ADMIT Family Medicine
DX: A41.9 Sepsis, unspecified organism (principal); I50.33 Acute on chronic diastolic (congestive) heart failure; N17.0 Acute kidney failure with tubular necrosis; J96.21 Acute and chronic respiratory failure with hypoxia; I13.0 Hypertensive heart and chronic kidney disease with heart failure and stage 1 through stage 4 chronic kidney disease, or unspecified chronic kidney disease; J44.1 Chronic obstructive pulmonary disease with (acute) exacerbation; E44.0 Moderate protein-calorie malnutrition; Z68.43 Body mass index [BMI] 50.0-59.9, adult; R07.1 Chest pain on breathing; I48.0 Paroxysmal atrial fibrillation; N18.3 Chronic kidney disease, stage 3 (moderate); D64.9 Anemia, unspecified; M15.9 Polyosteoarthritis, unspecified; G25.81 Restless legs syndrome; R73.9 Hyperglycemia, unspecified; E83.41 Hypermagnesemia; K21.9 Gastro-esophageal reflux disease without esophagitis; K44.9 Diaphragmatic hernia without obstruction or gangrene; G89.29 Other chronic pain; F41.9 Anxiety disorder, unspecified; M54.9 Dorsalgia, unspecified; K57.30 Diverticulosis of large intestine without perforation or abscess without bleeding; Z51.5 Encounter for palliative care; Z66 Do not resuscitate; Z96.653 Presence of artificial knee joint, bilateral; Z79.899 Other long term (current) drug therapy; Z99.81 Dependence on supplemental oxygen; Z79.01 Long term (current) use of anticoagulants; Z88.8 Allergy status to other drugs, medicaments and biological substances; Z90.11 Acquired absence of right breast and nipple; Z90.49 Acquired absence of other specified parts of digestive tract; Z83.6 Family history of other diseases of the respiratory system; Z83.79 Family history of other diseases of the digestive system; Z85.3 Personal history of malignant neoplasm of breast

== ENCOUNTER 2020-01-02 03:58 | Inpatient (IN) | payer MEDICARE ==
[~2020-01-02] VITALS: Ht 162.6 cm; Wt 144.5 kg
[~2020-01-02 03:58] MED LIST changes: +FUROSEMIDE20 M1 PO; +FUROSEMIDE40 MG PO; +Ipratropium Brom3 ML INH; +LOPRESSOR50 M1 PO; +LORAZEPAM2 MG PO; +NEBULIZER INH; +VITAMIN D32000 UNI1 PO; +ZITHROMAX500 MG PO
[2020-01-02 05:02] LABS: BASO % 0.4 % (0.0-1.0); EOS # 0.2 10*3/uL (0.0-0.4); EOS % 3.1 % (1.0-4.0); HEMATOCRIT 34.3 % (37.0-47.0); LYMPH # 2.2 10*3/uL (1.3-4.4); LYMPH % 30.8 % (27.0-41.0); MEAN CELL VOLUME 84.3 fl (81.0-99.0); MEAN CORPUSCULAR HGB 24.6 pg (27.0-31.0); MEAN CORPUSCULAR HGB CONC 29.2 g/dl (33.0-37.0); MEAN PLATELET VOLUME 8.8 fl (9.6-12.3); MONO # 0.9 10*3/uL (0.1-1.0); NEUT # 3.8 10*3/uL (2.3-7.9); NEUT % 53.6 % (47.0-73.0); PLATELET COUNT AUTOMATED 256 10*3/uL (130-400); RED BLOOD COUNT 4.07 10*6/uL (4.10-5.10); RED CELL DISTRI WIDTH 17.1 % (0-14.5); WHITE BLOOD COUNT 7.2 10*3/uL (4.8-10.8)
[2020-01-02 05:11] LABS: ACT PARTIAL THROMBO TIME 23.5 SECONDS (20.0-32.1); INTERNATIONAL NORM RATIO 1.1 (2.0-3.5)
[2020-01-02 05:29] LABS: ALKALINE PHOSPHATASE 54 U/L (45-117); BUN 16 mg/dl (7-24); CHLORIDE 109 mmol/L (98-107); CREATININE 0.97 mg/dL (0.55-1.02); POTASSIUM 3.7 mmol/L (3.5-5.1); SGOT/AST 26 IU/L (3-35); SGPT/ALT 17 U/L (12-78); SODIUM 143 mmol/L (136-145); TOTAL PROTEIN 6.7 gm/dL (6.4-8.2)
[2020-01-02 05:33] LABS: TROPONIN I < 0.015 ng/ml (<0.045)
[2020-01-02 06:00] VITALS: BP 136/87
[2020-01-02 06:20] VITALS: BP 141/72
--- NOTE | 2020-01-02 06:20 | NUR ---
A 74, admitted to [facility], under the services of RAD Coates DO with a diagnosis of CHF. Chief complaint is SOB. Patient arrived via stretcher from ER. Monitor applied. Initial assessment completed. Vital signs taken and recorded. RAD COATES DO notified of admission to the unit. Orders received. See assessment for past medical history, medications and allergies. Patient and/or family oriented to unit. [facility] visitation policy reviewed. Clothing/patient valuable form completed. ELSA JARAMILLO
--- NOTE | 2020-01-02 06:57 | NUR ---
MED REC UP DATED PER PATIENT.
--- NOTE | 2020-01-02 07:51 | NUR ---
ATIVAN AND PAIN PILL PER PTS REQUEST FOR ANXIETY AND DISCOMFORTS
[2020-01-02 08:00] VITALS: BP 136/70
--- NOTE | 2020-01-02 08:00 | NUR ---
AM ASSESSMENT COMPLETED. PT AAOX3. PER PT LEGS RASH STARTED THE SAME WAY IT LOOKS NOW DARK RED MINIMALLY RAISED AREAS. FROM KNEES TO FEET & A SMALL AMOUNT AROUND WAIST BAND AREA.. NO ITCHING OR WELTS ASSOCIATED WITH RASH.. PT IS HOME O2 DEPENDENT ON 3 LITERS AND GETS SOB WITH EXERTION BUT KNOWLES IS SLIGHTLY WORSE THAN NORMAL.. PER PT SHE ONLY CAME BECAUSE HER FAMILY MADE HER.. DENIES FEVER OR INCREASING SOB OVER LAST WEEK. PER PT SHE USES A WALKER TO AMBULATE. BSC & WALKER PROVEDED. O2 AT 3L VIA NASAL CANNULA. NO OPEN WOUNDS NOTED. PT DENIES WOUNDS..REFUSES ASHLEY & SCD - ASHLEY "HURT" AND THOSE OTHER THINGS MAKE ME SWEAT & TRIP ME..
[2020-01-02] MEDS ORDERED: PERCOCET 10-321 EACH PO (08:13)
[2020-01-02 09:00] LABS: ABG BASE EXCESS 4.2 mmol/L (-2.0-2.0); ARTERIAL BLOOD GAS PH 7.43 (7.35-7.45)
--- NOTE | 2020-01-02 09:00 | NUR ---
PER PT PAIN BETTER SINCE MEDICATED 11/17 NOW - DISCUSSED PROPER DOSING WITH DR HARMON..
[2020-01-02 12:00] VITALS: BP 121/79
--- NOTE | 2020-01-02 13:09 | NUR ---
MEDICATED WITH PAIN PILL FOR C/O BACK PAIN 03/19./. PER THE PATIENT SHE DOES NOT UNDERSTAND WHY THEY DECREASED HER DOSE
--- NOTE | 2020-01-02 14:11 | NUR ---
2 SEPARATE ATTEMPTS AT REACHING [facility] ANSWERING SERVICE UNSUCCFESSFUL AFTER SITTING ON HOLD FOR >10 MINUTES EACH TIME..
--- NOTE | 2020-01-02 14:41 | NUR ---
SITTING UP IN RECLINER TO EAT. DENIES ALL C/O AT PRESENT
[2020-01-02 16:00] VITALS: BP 117/53
--- NOTE | 2020-01-02 16:51 | NUR ---
SPOKE WITH DR WAY ABOUT CONSULT - APPLY TUBIGRIPS & HE WILL SEE HER TOMORROW
--- NOTE | 2020-01-02 18:45 | NUR ---
RESTING IN BED AFTER EATING ON SIDE OF THE BED..
--- NOTE | 2020-01-02 19:45 | NUR ---
PATIENT RESTING IN BED. NO SIGNS OR SYMPTOMS OF DISTRESS OR DISCOMFORT NOTED. WILL CONTINUE TO MONITOR.
[2020-01-02 20:00] VITALS: BP 122/69
--- NOTE | 2020-01-02 20:35 | NUR ---
PERCOCET GIVEN PER PATIENT REQUEST FOR COMPLAINTS OF BACK PAIN RATED 8/10. WILL ASSESS EFFECTIVENESS. PATIENT RESTING IN BED QUIETLY. CALL LIGHT WITHIN REACH.
--- NOTE | 2020-01-02 21:30 | NUR ---
PATIENT STATES PAIN MEDICATION WAS EFFECTIVE
--- NOTE | 2020-01-02 22:00 | NUR ---
PATIENT TRANSFERRED TO ROOM 419 WITHOUT INCIDENT. VITAL SIGNS STABLE. PATIENT ORIENTED TO ROOM AND CALL LIGHT SYSTEM. PATIENT DENIES COMPLAINTS AT THIS TIME. RN WILL CONTINUE TO YONI
[2020-01-03] VITALS: BP 120/74
--- NOTE | 2020-01-03 01:18 | NUR ---
PATIENT APPEARS TO BE SLEEPING WHEN RN CHECKED IN ON HER THROUGH THE ANTEROOM DOOR WINDOW. NO SIGNS OR SYMPTOMS OF DISTRESS. RN WILL CONTINUE TO MONITOR
--- NOTE | 2020-01-03 03:08 | NUR ---
PATIENT PROVIDED WITH BEDSIDE COMMODE PER REQUEST, ALSO PROVIDED PATIENT WITH WALKER AND SLIPPERS SHE STATES IT MAKES HER FEEL MORE SECURE REQUESTING PAIN PILL AT THIS TIME. INFORMED PATIENT RN WILL CHECK WHEN ABLE TO BE ADMINISTERED
[2020-01-03 05:26] LABS: CREATININE 1.09 mg/dL (0.55-1.02); POTASSIUM 3.9 mmol/L (3.5-5.1)
[2020-01-03 06:05] LABS: BASO % 0.3 % (0.0-1.0); EOS # 0.2 10*3/uL (0.0-0.4); HEMATOCRIT 33.7 % (37.0-47.0); LYMPH % 35.5 % (27.0-41.0); MEAN CELL VOLUME 85.1 fl (81.0-99.0); MEAN CORPUSCULAR HGB 24.5 pg (27.0-31.0); MEAN CORPUSCULAR HGB CONC 28.8 g/dl (33.0-37.0); MEAN PLATELET VOLUME 9.6 fl (9.6-12.3); MONO # 0.8 10*3/uL (0.1-1.0); MONO % 13.9 % (3.0-9.0); NEUT # 2.7 10*3/uL (2.3-7.9); NEUT % 46.1 % (47.0-73.0); PLATELET COUNT AUTOMATED 266 10*3/uL (130-400); RED BLOOD COUNT 3.96 10*6/uL (4.10-5.10); RED CELL DISTRI WIDTH 17.2 % (0-14.5); WHITE BLOOD COUNT 5.8 10*3/uL (4.8-10.8)
[2020-01-03 08:00] VITALS: BP 117/57
--- NOTE | 2020-01-03 08:00 | NUR ---
Stoker Mechanic called and spoke to patient via phone. Patient states lives at home with her son. There are no steps in the home. Physician: Dr. Ayden Bryant [facility] Home health services: has had [facility] in the past but not currently Patient's level of ADLs: MINIMAL ASSIST Patient has working utilities: yes DME: cane, walker, O2 @ 2L nc, portable O2 tanks, O2 supplier [employer] Follow-up physician's appointment after d/c: will be made by the hospitalist nurse director upon discharge Does patient want to access PORTAL?: no Discharge plan discussed with patient. She lives at home with her son. She is independent in her ADLs and uses a walker for ambulation. Discussed short term SNF and home health care services and she refuses either. She states her son will provide transportation on discharge. When medically stable she will be discharged to home. REGLA MONROY
--- NOTE | 2020-01-03 08:37 | NUR ---
PATIENT MEDICATED WITH PERCOCET FOR CHRONIC PAIN IN HER BACK RATES 02/16./. PT UP IN ROOM AD JOSR WITH WALKER ASSESSMENT DONE. RASH TO ABD ALMOST GONE. RASH TO BLE IMPROVED - COLOR RECORDS AND INFORMATION MANAGER AND LESS IN APPEARANCE. PER PT THE PAIN FROM THE SWELLING IN HER LEGS IS BETTER.
--- NOTE | 2020-01-03 09:00 | NUR ---
PAIN BETTER NOW 2/10 - UP IN BATHROOM TO WASH UP
--- NOTE | 2020-01-03 09:18 | NUR ---
DR SUGGS ROUNDED FOR INFECTIOUS DISEASE
--- NOTE | 2020-01-03 10:36 | NUR ---
OT NOTE Occupational therapy order received and chart reviewed. Patient admitted for CHF and to rule out COVID19. Patient's PCR swab is currently pending. Per Dr. Membreno during the discharge planning meeting this date, will hold on an OT evaluation at this time due to pending COVID19 swab. Will continue to follow. Thank you. Colette Morel, OTR/L
--- NOTE | 2020-01-03 10:43 | NUR ---
PHYSICAL THERAPY Per medical team meeting this AM to wait for results of PCR for Covid-19 prior to seeeing, will follow as appropriate for PT jason. Jenniffer Arzate PT
[2020-01-03 12:00] VITALS: BP 91/58
--- NOTE | 2020-01-03 12:55 | NUR ---
DR WAY WAS HERE EARLIER - DR PANDYA ROUNDED AND WILL DISCHARGE PATIENT HOME TODAY
[2020-01-03] MEDS ORDERED: LASIX40 MG PO (13:06)
[2020-01-03] MEDS ORDERED: K-TAB20 MEQ PO (13:06)
--- NOTE | 2020-01-03 13:14 | NUR ---
MEDICATED WITH PERCOCET FOR BACK PAIN RATES 7. Hep Lock discontinued. Site asymptomatic. Pressure applied. Sterile dressing applied. Discharge instructions reviewed with patient/family. Patient receptive and verbalizes understanding. Follow-up care arranged. Written instructions given to patient/family. SAMANTHA FOSTER
--- NOTE | 2020-01-03 13:41 | NUR ---
TAKEN OUT VIA WHEEL CHAIR WITH BELONGINGS & DC INSTRUCTIONS
--- NOTE | 2020-01-03 13:44 | NUR ---
PATIENT LEFT BEFORE BEING ABLE TO EVALUATE EFFECTIVENESS OF PAIN MED
== END 2020-01-03 13:44 | disposition home or self-care (01) | DRG 291 ==
LOC: ED 03:58 → 4E 05:55 → EDHOLD 05:55 → 4NE 06:22 → 4E 22:03
PROVIDERS: Emergency Medicine; Internal Medicine Critical Care Medicine; Student in an Organized Health Care Education/Training Program; ADMIT Internal Medicine
DX: I13.0 Hypertensive heart and chronic kidney disease with heart failure and stage 1 through stage 4 chronic kidney disease, or unspecified chronic kidney disease (principal); I50.33 Acute on chronic diastolic (congestive) heart failure; E44.0 Moderate protein-calorie malnutrition; J96.11 Chronic respiratory failure with hypoxia; Z68.43 Body mass index [BMI] 50.0-59.9, adult; I48.21 Permanent atrial fibrillation; K44.9 Diaphragmatic hernia without obstruction or gangrene; K21.9 Gastro-esophageal reflux disease without esophagitis; J44.9 Chronic obstructive pulmonary disease, unspecified; K57.30 Diverticulosis of large intestine without perforation or abscess without bleeding; R21 Rash and other nonspecific skin eruption; E87.8 Other disorders of electrolyte and fluid balance, not elsewhere classified; F41.9 Anxiety disorder, unspecified; M54.5 Low back pain; G89.29 Other chronic pain; G62.9 Polyneuropathy, unspecified; E55.9 Vitamin D deficiency, unspecified; G25.81 Restless legs syndrome; M19.90 Unspecified osteoarthritis, unspecified site; N18.3 Chronic kidney disease, stage 3 (moderate); D64.9 Anemia, unspecified; E66.01 Morbid (severe) obesity due to excess calories; Z20.828 Contact with and (suspected) exposure to other viral communicable diseases; Z85.3 Personal history of malignant neoplasm of breast; Z96.653 Presence of artificial knee joint, bilateral; Z90.49 Acquired absence of other specified parts of digestive tract; Z90.11 Acquired absence of right breast and nipple; Z84.89 Family history of other specified conditions; Z83.6 Family history of other diseases of the respiratory system; Z91.041 Radiographic dye allergy status; Z91.048 Other nonmedicinal substance allergy status; Z79.01 Long term (current) use of anticoagulants; Z79.899 Other long term (current) drug therapy

== ENCOUNTER → 2020-02-20 | Outpatient (CLI) | payer MEDICARE ==
[~2020-02-20] MED LIST changes: +K-TAB20 MEQ PO
[2020-02-20 12:56] LABS: INTERNATIONAL NORM RATIO 1.6 (2.0-3.5)
== END | disposition home or self-care (01) ==
LOC: LAB 11:35
PROVIDERS: Family Medicine
DX: I48.91 Unspecified atrial fibrillation (principal)

== ENCOUNTER → 2020-03-14 | Outpatient (CLI) | payer MEDICARE ==
[2020-03-14 13:59] LABS: BASO % 0.1 % (0.0-1.0); EOS % 0.1 % (1.0-4.0); LYMPH # 1.3 10*3/uL (1.3-4.4); MEAN CELL VOLUME 83.5 fl (81.0-99.0); MEAN CORPUSCULAR HGB 23.6 pg (27.0-31.0); MEAN CORPUSCULAR HGB CONC 28.3 g/dl (33.0-37.0); MONO # 0.9 10*3/uL (0.1-1.0); NEUT % 84.2 % (47.0-73.0); PLATELET COUNT AUTOMATED 350 10*3/uL (130-400); RED BLOOD COUNT 4.19 10*6/uL (4.10-5.10); RED CELL DISTRI WIDTH 16.1 % (0-14.5); WHITE BLOOD COUNT 14.3 10*3/uL (4.8-10.8)
[2020-03-14 14:28] LABS: ALBUMIN 3.1 gm/dl (3.1-4.5); ALKALINE PHOSPHATASE 58 U/L (45-117); BUN 22 mg/dl (7-24); CHLORIDE 104 mmol/L (98-107); CREATININE 1.04 mg/dL (0.55-1.02); POTASSIUM 4.2 mmol/L (3.5-5.1); SGOT/AST 11 IU/L (3-35); SGPT/ALT 19 U/L (12-78); SODIUM 137 mmol/L (136-145); TOTAL PROTEIN 7.4 gm/dL (6.4-8.2)
[2020-03-14 14:57] LABS: INTERNATIONAL NORM RATIO 2.3 (2.0-3.5)
== END | disposition home or self-care (01) ==
LOC: LAB 13:29
PROVIDERS: Family Medicine; Nurse Practitioner Family
DX: I48.91 Unspecified atrial fibrillation (principal); L30.9 Dermatitis, unspecified

== ENCOUNTER 2020-03-28 06:14 | Inpatient (IN) | payer MEDICARE ==
[2020-03-28] VITALS (7 sets, daily range): BP systolic 95–151; BP diastolic 53–86
[~2020-03-28] VITALS: Ht 162.5 cm; Wt 145.3 kg
[2020-03-28 06:51] LABS: BASO % 0.2 % (0.0-1.0); EOS # 0.2 10*3/uL (0.0-0.4); EOS % 1.8 % (1.0-4.0); HEMATOCRIT 34.7 % (37.0-47.0); LYMPH # 1.7 10*3/uL (1.3-4.4); LYMPH % 13.9 % (27.0-41.0); MEAN CELL VOLUME 85.5 fl (81.0-99.0); MEAN CORPUSCULAR HGB 23.2 pg (27.0-31.0); MEAN CORPUSCULAR HGB CONC 27.1 g/dl (33.0-37.0); MEAN PLATELET VOLUME 8.8 fl (9.6-12.3); MONO # 0.8 10*3/uL (0.1-1.0); MONO % 6.7 % (3.0-9.0); NEUT # 9.5 10*3/uL (2.3-7.9); NEUT % 77.1 % (47.0-73.0); PLATELET COUNT AUTOMATED 294 10*3/uL (130-400); RED BLOOD COUNT 4.06 10*6/uL (4.10-5.10); RED CELL DISTRI WIDTH 16.5 % (0-14.5); WHITE BLOOD COUNT 12.3 10*3/uL (4.8-10.8)
[2020-03-28 07:01] LABS: ACT PARTIAL THROMBO TIME 37.6 SECONDS (20.0-32.1); INTERNATIONAL NORM RATIO 2.9 (2.0-3.5)
[2020-03-28 07:08] LABS: ALBUMIN 2.8 gm/dl (3.1-4.5); ALKALINE PHOSPHATASE 63 U/L (45-117); BUN 21 mg/dl (7-24); CHLORIDE 115 mmol/L (98-107); CREATININE 1.16 mg/dL (0.55-1.02); POTASSIUM 3.8 mmol/L (3.5-5.1); SGOT/AST 19 IU/L (3-35); SGPT/ALT 18 U/L (12-78); SODIUM 144 mmol/L (136-145); TOTAL PROTEIN 7.2 gm/dL (6.4-8.2)
[2020-03-28 07:10] LABS: TROPONIN I < 0.015 ng/ml (<0.045)
--- NOTE | 2020-03-28 09:55 | NUR ---
PATIENT TAKEN TO FLOOR AT THIS TIME BY THIS NURSE. NO CHANGE IN STATUS.
--- NOTE | 2020-03-28 09:55 | NUR ---
Time: 954 A 74 year old FEMALE admitted to 5E under services of RAD COATES DO. Pt. arrived via stretcher from ER. Chief complaint: CHF AND COPD EXAC. VICTORIA SANCHEZ
--- NOTE | 2020-03-28 10:02 | NUR ---
DR ULLOA OFFICE NOTIFIED OF CONSULT.
--- NOTE | 2020-03-28 10:02 | NUR ---
DR SIMMS ON UNIT AND AWARE OF CONSULT.
--- NOTE | 2020-03-28 10:14 | NUR ---
PATIENT DENIES WOUNDS A&OX4.
--- NOTE | 2020-03-28 10:30 | NUR ---
NYE PLACED PER ORDERS PER POLICY, 400CC OF CLEAR URINE RETURNED. PT TOLERATED WELL.
[2020-03-28 11:08] LABS: ABG BASE EXCESS 2.3 mmol/L (-2.0-2.0); ARTERIAL BLOOD GAS PH 7.378 (7.35-7.45)
[2020-03-28] MEDS ORDERED: LASIX80 MG PO (11:27)
[2020-03-28] MEDS ORDERED: Coumadin5 MG PO (11:38)
--- NOTE | 2020-03-28 11:40 | NUR ---
MED REC UPDATED WITH LIST FROM JAIME GERBER. Montrell SLAUGHTER NP NOTIFIED.
--- NOTE | 2020-03-28 12:57 | NUR ---
PT REQUESTED AND WAS MEDICATED WITH PERCOCET AND OXY-IR (PERCOCET 10) FOR C/O BACK PAIN. CALL LIGHT IN REACH. WILL MONITOR.
--- NOTE | 2020-03-28 13:05 | NUR ---
DR PICKERING ON UNIT, SEEN PT.
--- NOTE | 2020-03-28 13:32 | NUR ---
SPOKE WITH Montrell SLAUGHTER NP. UPDATED ON DR SIMMS'S ORDERS.
--- NOTE | 2020-03-28 13:45 | NUR ---
MEDICATION EFFECTIVE PER PT. CALL LIGHT IN REACH. WILL MONITOR
--- NOTE | 2020-03-28 15:16 | NUR ---
PHYSICAL THERAPY Physical Therapy evaluation completed on 5E with full evaluation to follow. Low complexity skilled PT evaluation per chart review and evaluation, 24846. Recommend physical therapy per plan of care and Home Health services upon discharge. Thank you for this referral. Tequila Ash,PT,DPT
--- NOTE | 2020-03-28 18:52 | NUR ---
PT REQUESTED AND WAS MEDICATED WITH PERCOCET AND OXI IR (PERCOCET 10) FOR C/O BACK PAIN. CALL LIGHT IN REACH. WILL MONITOR.
--- NOTE | 2020-03-28 19:52 | NUR ---
PER PT. PERCOCET AND ROXICODONE EFFECTIVE FOR PAIN.
--- NOTE | 2020-03-28 20:14 | NUR ---
SPUTUM OBTAINED AND SENT TO LAB FOR GRAM STAIN/C&S.
--- NOTE | 2020-03-28 22:57 | NUR ---
ATIVAN GIVEN PER ORDER FOR ANXIETY SEE MAR.
--- NOTE | 2020-03-28 23:57 | NUR ---
ATIVAN EFFECTIVE FOR ANXIETY PER PT.
[2020-03-29] VITALS: BP 87/43
[2020-03-29 00:10] VITALS: BP 108/52
--- NOTE | 2020-03-29 03:56 | NUR ---
24 HR chart check completed.
--- NOTE | 2020-03-29 05:24 | NUR ---
PERCOCET GIVEN PER ORDER FOR PAIN IN BACK RATED "9" SEE MAR.
--- NOTE | 2020-03-29 06:20 | NUR ---
PERCOCETS EFFECTIVE PER PAIN PER PT.
[2020-03-29 06:32] LABS: BASO % 0.1 % (0.0-1.0); HEMATOCRIT 32.5 % (37.0-47.0); LYMPH # 1.1 10*3/uL (1.3-4.4); LYMPH % 8.3 % (27.0-41.0); MEAN CELL VOLUME 82.7 fl (81.0-99.0); MEAN CORPUSCULAR HGB 23.4 pg (27.0-31.0); MEAN CORPUSCULAR HGB CONC 28.3 g/dl (33.0-37.0); MEAN PLATELET VOLUME 9.3 fl (9.6-12.3); MONO # 0.5 10*3/uL (0.1-1.0); NEUT # 11.5 10*3/uL (2.3-7.9); NEUT % 87.1 % (47.0-73.0); PLATELET COUNT AUTOMATED 322 10*3/uL (130-400); RED BLOOD COUNT 3.93 10*6/uL (4.10-5.10); RED CELL DISTRI WIDTH 16.4 % (0-14.5); WHITE BLOOD COUNT 13.2 10*3/uL (4.8-10.8)
[2020-03-29 06:34] LABS: ALBUMIN 2.7 gm/dl (3.1-4.5); CREATININE 1.27 mg/dL (0.55-1.02); FREE T4 1.07 ng/dl (0.76-1.46); POTASSIUM 4.7 mmol/L (3.5-5.1); TOTAL PROTEIN 6.9 gm/dL (6.4-8.2)
[2020-03-29 06:39] LABS: THYROID STIM HORMONE (HS) 0.816 uIU/ml (0.358-4.75)
[2020-03-29 07:21] LABS: VITAMIN D, 25-HYDROXY 16.8 ng/mL (30-100)
--- NOTE | 2020-03-29 07:35 | NUR ---
PHYSICAL THERAPY Screen and PT eval received pt has been evaluated and is on caseload Jenniffer Arzate PT
[2020-03-29 08:00] VITALS: BP 100/50
--- NOTE | 2020-03-29 08:50 | NUR ---
PHYSICAL THERAPY Patient seen this am 1:1 for therapy visit and had just finished breakfast, supine in bed upon therapist arrival. Patient identified by name / and presented with continuos O2-3L via [place]. Patient was pleasant this morning voicing only mild, chronic back pain and transfers supine to sit EOB with SBA. Patient performed sit to stand transfer, use of wh walker standing support, CGA, then ambulated 40'x 1, wh walker, CGA, demonstraing slow, cautious gait pattern. Patient returned to bedside chair with increased fatigue and remained with call light, tray table and telephone. Patient SpO2 / HR remained WFL's throughout entire treatment session. Will continue per POC as tolerated, total treatment time 15 minutes. Chadwick Goins, DAY CAMP COUNSELOR
--- NOTE | 2020-03-29 09:00 | NUR ---
Director Of Corporate Responsibility in to talk to patient. Patient states lives at home with her son. There are no steps in the home. Physician: Dr. Ayden Bryant [facility]: has had [facility] in the past Patient's level of ADLs: MINIMAL ASSIST Patient has working utilities: yes DME: cane, walker, shower chair, O2 @ 3L nc, portable O2 tanks, nebulizer, O2 supplier [facility] Follow-up physician's appointment after d/c: will be made by the hospitalist nurse director upon discharge Does patient want to access PORTAL?: no Discharge plan discussed with patient. She lives at home with her son. Her daughter lives across the street and is a PT. She is independent in her ADLs and uses a cane or a walker for ambulation. Discussed short term and home health care services and she declines. CM will continue to follow for any discharge planning needs. When medically stable she will be discharged to home. She states her son or her daughter can provide transportation upon discharge. REGLA MONROY
[2020-03-29 12:00] VITALS: BP 111/59
--- NOTE | 2020-03-29 12:20 | NUR ---
Preop questionairre reviewed with pt. Intact on surgical clipboard.
--- NOTE | 2020-03-29 15:30 | NUR ---
States that percocet was effective.
[2020-03-29 16:00] VITALS: BP 111/54
[2020-03-29 20:00] VITALS: BP 116/51
--- NOTE | 2020-03-29 22:46 | NUR ---
PATIENT C/O PAIN IN BACK RATED "8" PERCOCET GIVEN PER ORDER SEE MAR.
--- NOTE | 2020-03-29 22:47 | NUR ---
ROXICODONE GIVEN PER ORDER FOR PAIN IN BACK PER PT. RATED "8". ATIVAN ALSO GIVEN FOR ANXIETY PER ORDER. SEE MAR.
[2020-03-30] VITALS (9 sets, daily range): BP systolic 107–157; BP diastolic 56–80
--- NOTE | 2020-03-30 00:45 | NUR ---
PERCOCET/ROXICODONE AND ATIVAN ALL EFFECTIVE FOR PAIN AND ANXIETY PER PT.
--- NOTE | 2020-03-30 04:43 | NUR ---
24 HR chart check completed.
[2020-03-30 06:59] LABS: BASO % 0.2 % (0.0-1.0); EOS # 0.2 10*3/uL (0.0-0.4); EOS % 1.7 % (1.0-4.0); HEMATOCRIT 31.7 % (37.0-47.0); LYMPH # 2.3 10*3/uL (1.3-4.4); LYMPH % 24.8 % (27.0-41.0); MEAN CELL VOLUME 84.3 fl (81.0-99.0); MEAN CORPUSCULAR HGB 23.4 pg (27.0-31.0); MEAN CORPUSCULAR HGB CONC 27.8 g/dl (33.0-37.0); MEAN PLATELET VOLUME 8.9 fl (9.6-12.3); MONO # 0.8 10*3/uL (0.1-1.0); MONO % 8.7 % (3.0-9.0); NEUT # 5.9 10*3/uL (2.3-7.9); NEUT % 64.4 % (47.0-73.0); PLATELET COUNT AUTOMATED 310 10*3/uL (130-400); RED BLOOD COUNT 3.76 10*6/uL (4.10-5.10); RED CELL DISTRI WIDTH 16.8 % (0-14.5); WHITE BLOOD COUNT 9.2 10*3/uL (4.8-10.8)
--- NOTE | 2020-03-30 07:01 | NUR ---
WITNESSED PATIENT SIGN CONSENT FOR BRONCHOSCOPE.
[2020-03-30 07:05] LABS: CREATININE 1.53 mg/dL (0.55-1.02); POTASSIUM 4.9 mmol/L (3.5-5.1)
[2020-03-30 07:06] LABS: IMMUNOGLOBULIN M, QNT 92 mg/dL (26-217); RHEUMATOID ARTHRITIS FACTOR 15.4 IU/mL (0.0-13.9)
--- NOTE | 2020-03-30 08:05 | NUR ---
PHYSICAL THERAPY PT SUPINE IN BED UPON ARRIVAL. PT IDENTIFIED BY NAME AND . PT REPORTED " I AM EXHAUSED AND DON'T FEEL GOOD TODAY." PT AGREED TO ALL PHYSICAL THERAPY TREATMENT THIS VISIT. PT PRESENT WITH 3L O2 VIA NASEL CANULA. PT PERFORMED SUPINE TO SIT EOB WITH SBA. PT PERFORMED STS FROM EOB TO FWW WITH SBA AND USE OF BUE PUSHING OFF BED FOR ASSISTANCE. PT GAIT TRAINED 25FT X2 WITH FWW AND SBA WITH SLIGHT FW FLEX POSTURE AND VC'S FOR PROPER POSTURE. PT O2 LEVEL WAS 94% SPo2 WITH 3L OF 02 VIA NASEL CANULA. PT REQUIRED SHORT SEATED BREAK BETWEEN EACH GAIT. PT PERFORMED STS TO EOB WITH SBA AND USE OF BUE FOR ASSISTANCE. PT PERFORMED SIT TO SUPINE WITH SBA. PT SUPINE IN BED WITH LE AUTOMATICE COMPRESSION WRAPS ON PT REQUESTED AND CALL LIGHT IN HAND. PT HAD NO OTHER NEEDS REPORTED AT THIS TIME. PT SEEN 1:1 FOR 15MINS. ABELINO BERNAL PTA
--- NOTE | 2020-03-30 08:39 | NUR ---
Surgery RN here to take pt to OR for bronchoscopy.
--- NOTE | 2020-03-30 08:56 | NUR ---
OT NOTE Occupational therapy order received and chart reviewed. Patient is currently out of the room for surgery. Will check back at a later date for completion of OT evaluation. Thank you. Colette Morel, OTR/L
--- NOTE | 2020-03-30 09:00 | NUR ---
CM in to see patient. She is currently not in her room. Will follow up at a later time.
--- NOTE | 2020-03-30 11:53 | NUR ---
Spoke with Dr. Hightower regarding pt requesting catheter be removed. States ok to remove. Dr. Husain was in and asked to check with primary team regarding resuming pt coumadin. I spoke with Dr. Hightower regarding that as well and he states plan is to resume tomorrow as pt is still having hemoptysis and just had a bronchoscopy this am.
[2020-03-30 13:11] LABS: ALDOLASE 6.2 U/L (3.3-10.3); ANGIOTENSIN-CONVERTING ENZYME 35 U/L (14-82)
--- NOTE | 2020-03-30 13:23 | NUR ---
CM in to see patient. No new needs or request at this time. Discussed home health care services and she declines. CM will continue to follow for any discharge planing needs. When medically stable she will be discharged to home.
--- NOTE | 2020-03-30 13:33 | NUR ---
Patient is requesting a toilet riser for home. Hospitalist nurse director notified.
--- NOTE | 2020-03-30 13:52 | NUR ---
Assisted up from chair and back to bed. Pt required minimal assistance. UP with walker.
[2020-03-30 14:08] LABS: IGG SUBCLASS 1 552 mg/dL (248-810); IGG SUBCLASS 2 244 mg/dL (130-555); IGG SUBCLASS 3 45 mg/dL (15-102); IGG SUBCLASS 4 11 mg/dL (2-96); IMMUNOGLOBULIN G, QNT 881 mg/dL (586-1602)
--- NOTE | 2020-03-30 15:24 | NUR ---
Received toilet riser prescription. Faxed to [facility] as that is who patient uses for her O2 and other supplies.
--- NOTE | 2020-03-30 16:10 | NUR ---
PHYSICAL THERAPY CO-SIGN I approve of the Physical Therapy notes written above. Jenniffer Arzate PT
[2020-03-30 17:06] LABS: ATYPICAL PANCA <1:20 titer (Neg:<1:20); CYTOPLASMIC (C-ANCA) <1:20 titer (Neg:<1:20)
--- NOTE | 2020-03-30 17:14 | NUR ---
Medicated with percocet per prn order for c/o generalized pain.
--- NOTE | 2020-03-30 18:00 | NUR ---
States pain medication effective.
--- NOTE | 2020-03-30 19:35 | NUR ---
24 HR chart check completed.
--- NOTE | 2020-03-30 20:04 | NUR ---
PATIENT REFUSED TO HAVE SCD'S ON AT THIS TIME. WILL REVISIT THIS BEFORE BED.
--- NOTE | 2020-03-30 23:15 | NUR ---
ATIVAN GIVEN PER ORDER FOR ANXIETY, PERCOCET GIVEN FOR PAIN IN BACK RATED "6" SEE MAR PATIENT ALSO C/O STOMACH HURTING.
--- NOTE | 2020-03-30 23:21 | NUR ---
ZOFRAN GIVEN PER ORDER FOR NAUSEA. SEE MAR.
[2020-03-31] VITALS: BP 145/77
--- NOTE | 2020-03-31 00:15 | NUR ---
ZOFRAN, ATIVAN AND PERCOCET EFFECTIVE FOR PAIN, ANXIETY AND NAUSEA PER PT.
[2020-03-31 06:50] LABS: BASO % 0.2 % (0.0-1.0); EOS # 0.3 10*3/uL (0.0-0.4); EOS % 3.9 % (1.0-4.0); HEMATOCRIT 32.1 % (37.0-47.0); LYMPH # 2.3 10*3/uL (1.3-4.4); LYMPH % 27.4 % (27.0-41.0); MEAN CELL VOLUME 85.6 fl (81.0-99.0); MEAN CORPUSCULAR HGB 23.7 pg (27.0-31.0); MEAN CORPUSCULAR HGB CONC 27.7 g/dl (33.0-37.0); MEAN PLATELET VOLUME 9.5 fl (9.6-12.3); MONO # 0.8 10*3/uL (0.1-1.0); NEUT # 4.8 10*3/uL (2.3-7.9); NEUT % 58.3 % (47.0-73.0); PLATELET COUNT AUTOMATED 319 10*3/uL (130-400); RED BLOOD COUNT 3.75 10*6/uL (4.10-5.10); RED CELL DISTRI WIDTH 16.8 % (0-14.5); WHITE BLOOD COUNT 8.3 10*3/uL (4.8-10.8)
[2020-03-31 07:02] LABS: INTERNATIONAL NORM RATIO 1.7 (2.0-3.5)
[2020-03-31 07:09] LABS: CREATININE 1.32 mg/dL (0.55-1.02); POTASSIUM 5.1 mmol/L (3.5-5.1)
[2020-03-31 08:00] VITALS: BP 146/52
[2020-03-31 10:08] LABS: ACID FAST SPEC PROCESSING Concentration (.)
--- NOTE | 2020-03-31 11:23 | NUR ---
DR ELMORE CALLED AND NOTIFIED OF SPUTUM CULTURE RECIEVED
[2020-03-31 12:00] VITALS: BP 129/62
[2020-03-31 16:00] VITALS: BP 103/50
[2020-03-31 20:00] VITALS: BP 157/93
[2020-04-01] VITALS: BP 129/61
[2020-04-01 00:06] LABS: IMMUNOGLOBULIN IgE 8 IU/mL (6-495)
[2020-04-01 06:47] LABS: BASO % 0.3 % (0.0-1.0); EOS # 0.4 10*3/uL (0.0-0.4); EOS % 5.9 % (1.0-4.0); HEMATOCRIT 30.2 % (37.0-47.0); LYMPH # 1.5 10*3/uL (1.3-4.4); LYMPH % 20.6 % (27.0-41.0); MEAN CELL VOLUME 84.8 fl (81.0-99.0); MEAN CORPUSCULAR HGB 23.6 pg (27.0-31.0); MEAN CORPUSCULAR HGB CONC 27.8 g/dl (33.0-37.0); MONO # 0.7 10*3/uL (0.1-1.0); MONO % 10.2 % (3.0-9.0); NEUT # 4.5 10*3/uL (2.3-7.9); NEUT % 62.7 % (47.0-73.0); PLATELET COUNT AUTOMATED 269 10*3/uL (130-400); RED BLOOD COUNT 3.56 10*6/uL (4.10-5.10); RED CELL DISTRI WIDTH 16.4 % (0-14.5); WHITE BLOOD COUNT 7.2 10*3/uL (4.8-10.8)
[2020-04-01 06:53] LABS: INTERNATIONAL NORM RATIO 1.3 (2.0-3.5)
[2020-04-01 06:57] LABS: BUN 28 mg/dl (7-24); CHLORIDE 106 mmol/L (98-107); CREATININE 1.07 mg/dL (0.55-1.02); POTASSIUM 4.8 mmol/L (3.5-5.1); SODIUM 140 mmol/L (136-145)
[2020-04-01 08:00] VITALS: BP 146/85
--- NOTE | 2020-04-01 08:36 | NUR ---
PT RESTING IN BED/ NO DISTRESS NOTED. WILL MONITOR
[2020-04-01 12:00] VITALS: BP 147/88
--- NOTE | 2020-04-01 13:50 | NUR ---
PT REQUESTED AND GIVEN PERCOCET FOR C/O BACK PAIN PT RATES PAIN 8 WILL MONITOR
--- NOTE | 2020-04-01 14:30 | NUR ---
PERCOCET HELPED PER PT WILL MONITOR
[2020-04-01 16:00] VITALS: BP 123/57
[2020-04-01 20:00] VITALS: BP 150/91
--- NOTE | 2020-04-01 21:29 | NUR ---
PERCOCET GIVEN PER C/O BLE LEG PAIN AND ATIVAN PER PT REQUEST FOR ANXIETY. WILL MONITOR.
--- NOTE | 2020-04-01 22:29 | NUR ---
PRN MEDS EFFECTIVE PER PT
[2020-04-02] VITALS: BP 148/88
--- NOTE | 2020-04-02 04:32 | NUR ---
PATIENT SET UP FOR BATH AND WASHED SELF
[2020-04-02 06:28] LABS: CREATININE 1.23 mg/dL (0.55-1.02); POTASSIUM 4.5 mmol/L (3.5-5.1)
[2020-04-02 06:30] LABS: BASO % 0.5 % (0.0-1.0); EOS # 0.5 10*3/uL (0.0-0.4); HEMATOCRIT 32.4 % (37.0-47.0); LYMPH # 1.5 10*3/uL (1.3-4.4); LYMPH % 25.8 % (27.0-41.0); MEAN CELL VOLUME 84.4 fl (81.0-99.0); MEAN CORPUSCULAR HGB 23.2 pg (27.0-31.0); MEAN CORPUSCULAR HGB CONC 27.5 g/dl (33.0-37.0); MEAN PLATELET VOLUME 9.1 fl (9.6-12.3); MONO # 0.7 10*3/uL (0.1-1.0); MONO % 11.5 % (3.0-9.0); NEUT # 3.2 10*3/uL (2.3-7.9); NEUT % 53.9 % (47.0-73.0); PLATELET COUNT AUTOMATED 283 10*3/uL (130-400); RED BLOOD COUNT 3.84 10*6/uL (4.10-5.10); RED CELL DISTRI WIDTH 16.4 % (0-14.5); WHITE BLOOD COUNT 5.9 10*3/uL (4.8-10.8)
[2020-04-02 06:46] LABS: INTERNATIONAL NORM RATIO 1.2 (2.0-3.5)
[2020-04-02 08:00] VITALS: BP 110/58
--- NOTE | 2020-04-02 09:56 | NUR ---
PHYSICAL THERAPY Patient presented to therapy in sitting in bedside chair with no chair alarm present and 3 liters of spO2 VIA NASAL CANULA. Patient gives informed consent for treatment. Patient was identified by name and on wristband. Patient has no complaints or concerns. Patient performed sit to stand from bedside chair with SBA. Patient ambulated with Wh Walker and 3 liters of spO2 via nasal canula with Close Supervision for 140' x 1. Patient had no LOB and mild SOB. Patient's O2 SAT was recorded as 91% post ambulating 140' x 1. Patient's pulse was 77. Patient's O2 SAT quickly climbed to 96% within 1 minute of rest. Patient sat into bedside chair with SBA. Patient was left in bedside chair with call light within reach and no Chair alarm present. Patient's tray table left in front of patient. Patient was 1:1 with this ELECTROLYSIS ENGINEER for 15 minutes total. MARSHA SMITH ELECTROLYSIS ENGINEER
[2020-04-02] MEDS ORDERED: VITAMIN D350 MC2 PO (10:34)
[2020-04-02] MEDS ORDERED: DOXYCYCLINE100 M3 PO (10:45)
--- NOTE | 2020-04-02 10:59 | NUR ---
Occupational Therapy evaluation completed on the 5th floor with full eval to follow. low complexity level. Precautions: O2 and IV Site. Work on balance and safety with ADL tasks. Reccomend home with OT. THank you , Carmelita Ellison OTR/L
--- NOTE | 2020-04-02 13:00 | NUR ---
Discharge instructions reviewed with patient/family. Patient receptive and verbalizes understanding. Follow-up care arranged. Written instructions given to patient/family. KORY MOROCHO
--- NOTE | 2020-04-03 07:41 | NUR ---
PHYSICAL THERAPY CO-SIGN I approve of the Physical Therapy notes written above. Jenniffer Arzate PT
== END 2020-04-02 13:00 | disposition home or self-care (01) | DRG 291 ==
LOC: ED 06:14 → 5E 07:35 → EDHOLD 07:35 → 5E 08:50
PROVIDERS: Emergency Medicine; Hospitalist; Internal Medicine Critical Care Medicine; Registered Nurse; Student in an Organized Health Care Education/Training Program; ADMIT Internal Medicine; ATTEND Internal Medicine
PROC: 0BC88ZZ Extirpation of Matter from Left Upper Lobe Bronchus, Via Natural or Artificial Opening Endoscopic (ICD-10-PCS; principal; 2020-03-31)
PROC: 0BC68ZZ Extirpation of Matter from Right Lower Lobe Bronchus, Via Natural or Artificial Opening Endoscopic (ICD-10-PCS; principal; 2020-03-31)
PROC: 0BCB8ZZ Extirpation of Matter from Left Lower Lobe Bronchus, Via Natural or Artificial Opening Endoscopic (ICD-10-PCS; principal; 2020-03-31)
PROC: 0BC48ZZ Extirpation of Matter from Right Upper Lobe Bronchus, Via Natural or Artificial Opening Endoscopic (ICD-10-PCS; principal; 2020-03-31)
PROC: 0BC18ZZ Extirpation of Matter from Trachea, Via Natural or Artificial Opening Endoscopic (ICD-10-PCS; principal; 2020-03-31)
PROC: 0BC78ZZ Extirpation of Matter from Left Main Bronchus, Via Natural or Artificial Opening Endoscopic (ICD-10-PCS; principal; 2020-03-31)
PROC: 0BC58ZZ Extirpation of Matter from Right Middle Lobe Bronchus, Via Natural or Artificial Opening Endoscopic (ICD-10-PCS; principal; 2020-03-31)
PROC: 0BC38ZZ Extirpation of Matter from Right Main Bronchus, Via Natural or Artificial Opening Endoscopic (ICD-10-PCS; principal; 2020-03-31)
PROC: 0BC98ZZ Extirpation of Matter from Lingula Bronchus, Via Natural or Artificial Opening Endoscopic (ICD-10-PCS; principal; 2020-03-31)
DX: I13.0 Hypertensive heart and chronic kidney disease with heart failure and stage 1 through stage 4 chronic kidney disease, or unspecified chronic kidney disease (principal); J15.9 Unspecified bacterial pneumonia; N17.0 Acute kidney failure with tubular necrosis; I50.33 Acute on chronic diastolic (congestive) heart failure; R04.2 Hemoptysis; J44.1 Chronic obstructive pulmonary disease with (acute) exacerbation; E44.0 Moderate protein-calorie malnutrition; J44.0 Chronic obstructive pulmonary disease with (acute) lower respiratory infection; J96.11 Chronic respiratory failure with hypoxia; J96.12 Chronic respiratory failure with hypercapnia; D68.69 Other thrombophilia; E87.3 Alkalosis; I48.21 Permanent atrial fibrillation; Z68.43 Body mass index [BMI] 50.0-59.9, adult; I48.0 Paroxysmal atrial fibrillation; N18.3 Chronic kidney disease, stage 3 (moderate); F41.9 Anxiety disorder, unspecified; M54.9 Dorsalgia, unspecified; G89.29 Other chronic pain; E55.9 Vitamin D deficiency, unspecified; G25.81 Restless legs syndrome; G62.9 Polyneuropathy, unspecified; M19.90 Unspecified osteoarthritis, unspecified site; I35.0 Nonrheumatic aortic (valve) stenosis; R91.1 Solitary pulmonary nodule; E66.01 Morbid (severe) obesity due to excess calories; Z66 Do not resuscitate; Z51.5 Encounter for palliative care; K44.9 Diaphragmatic hernia without obstruction or gangrene; Z96.653 Presence of artificial knee joint, bilateral; Z99.81 Dependence on supplemental oxygen; Z91.048 Other nonmedicinal substance allergy status; Z91.041 Radiographic dye allergy status; Z83.6 Family history of other diseases of the respiratory system; Z83.79 Family history of other diseases of the digestive system; Z79.01 Long term (current) use of anticoagulants; Z90.49 Acquired absence of other specified parts of digestive tract; Z90.11 Acquired absence of right breast and nipple

== ENCOUNTER → 2020-04-11 | Outpatient (CLI) | payer MEDICARE ==
[~2020-04-11] MED LIST changes: +Coumadin5 MG PO; +LASIX80 MG PO; +VITAMIN D350 MC2 PO
[2020-04-11 12:31] LABS: INTERNATIONAL NORM RATIO 2.8 (2.0-3.5)
== END | disposition home or self-care (01) ==
LOC: LAB 11:36
PROVIDERS: ATTEND Family Medicine
DX: I48.91 Unspecified atrial fibrillation (principal)

== ENCOUNTER 2020-06-18 15:11 | Inpatient (IN) | payer MEDICARE ==
[~2020-06-18] VITALS: Ht 162.6 cm; Wt 139.9 kg
[2020-06-18 15:18] VITALS: BP 107/68
[2020-06-18 15:39] LABS: BASO % 0.5 % (0.0-1.0); EOS # 0.2 10*3/uL (0.0-0.4); EOS % 2.3 % (1.0-4.0); LYMPH # 1.8 10*3/uL (1.3-4.4); LYMPH % 28.6 % (27.0-41.0); MEAN CELL VOLUME 79.9 fl (81.0-99.0); MEAN CORPUSCULAR HGB 23.1 pg (27.0-31.0); MEAN CORPUSCULAR HGB CONC 28.9 g/dl (33.0-37.0); MEAN PLATELET VOLUME 9.5 fl (9.6-12.3); MONO # 0.8 10*3/uL (0.1-1.0); MONO % 11.9 % (3.0-9.0); NEUT # 3.6 10*3/uL (2.3-7.9); NEUT % 56.5 % (47.0-73.0); PLATELET COUNT AUTOMATED 300 10*3/uL (130-400); RED BLOOD COUNT 4.38 10*6/uL (4.10-5.10); RED CELL DISTRI WIDTH 16.6 % (0-14.5); WHITE BLOOD COUNT 6.4 10*3/uL (4.8-10.8)
[2020-06-18 15:54] LABS: ACT PARTIAL THROMBO TIME 24.3 SECONDS (20.0-32.1); INTERNATIONAL NORM RATIO 1.1 (2.0-3.5)
[2020-06-18 16:04] LABS: ALBUMIN 3.2 gm/dl (3.1-4.5); ALKALINE PHOSPHATASE 64 U/L (45-117); BUN 21 mg/dl (7-24); CHLORIDE 104 mmol/L (98-107); CREATININE 1.32 mg/dL (0.55-1.02); POTASSIUM 3.7 mmol/L (3.5-5.1); SGOT/AST 22 IU/L (3-35); SGPT/ALT 19 U/L (12-78); SODIUM 141 mmol/L (136-145); TOTAL PROTEIN 7.4 gm/dL (6.4-8.2)
[2020-06-18 16:09] LABS: TROPONIN I < 0.015 ng/ml (<0.045)
[2020-06-18 18:43] VITALS: BP 104/82
[2020-06-19 05:51] VITALS: BP 119/58
[2020-06-19 06:12] LABS: HEMATOCRIT 36.6 % (37.0-47.0); LYMPH # 0.9 10*3/uL (1.3-4.4); LYMPH % 23.5 % (27.0-41.0); MEAN CORPUSCULAR HGB CONC 28.4 g/dl (33.0-37.0); MEAN PLATELET VOLUME 9.4 fl (9.6-12.3); MONO % 1.1 % (3.0-9.0); NEUT # 2.7 10*3/uL (2.3-7.9); NEUT % 75.1 % (47.0-73.0); PLATELET COUNT AUTOMATED 307 10*3/uL (130-400); RED BLOOD COUNT 4.52 10*6/uL (4.10-5.10); RED CELL DISTRI WIDTH 16.6 % (0-14.5); WHITE BLOOD COUNT 3.6 10*3/uL (4.8-10.8)
[2020-06-19 06:28] VITALS: BP 106/63
[2020-06-19 06:55] LABS: CREATININE 1.43 mg/dL (0.55-1.02); POTASSIUM 3.9 mmol/L (3.5-5.1)
[2020-06-19 07:00] LABS: INTERNATIONAL NORM RATIO 1.1 (2.0-3.5)
[2020-06-19 10:03] VITALS: BP 128/82
[2020-06-19] MEDS ORDERED: ADVAIR HFA 230-12 GM INH (10:03)
[2020-06-19 16:00] VITALS: BP 102/54; BP 86/53
[2020-06-19 17:30] LABS: ABG BASE EXCESS 1.5 mmol/L (-2.0-2.0); ARTERIAL BLOOD GAS PH 7.414 (7.35-7.45)
[2020-06-19 20:00] VITALS: BP 99/75
[2020-06-20] VITALS: BP 99/55
[2020-06-20 07:53] LABS: CREATININE 1.91 mg/dL (0.55-1.02); POTASSIUM 4.1 mmol/L (3.5-5.1)
[2020-06-20 08:00] VITALS: BP 126/84
[2020-06-20 12:00] VITALS: BP 109/55
[2020-06-20 16:00] VITALS: BP 116/50
[2020-06-20 20:00] VITALS: BP 112/42
[2020-06-21] VITALS: BP 126/63
[2020-06-21 05:15] VITALS: BP 153/82
[2020-06-21 07:01] LABS: ALBUMIN 3.4 gm/dl (3.1-4.5); CREATININE 1.78 mg/dL (0.55-1.02); POTASSIUM 4.6 mmol/L (3.5-5.1)
[2020-06-21 08:00] VITALS: BP 148/86
[2020-06-21 12:00] VITALS: BP 138/80
[2020-06-21] MEDS ORDERED: ZITHROMAX500 MG PO (14:38)
[2020-06-21] MEDS ORDERED: Percocet 325 MG1 TAB PO (14:43)
[2020-06-21] MEDS ORDERED: MUCUS RELIEF600 MG PO (14:43)
[2020-06-21] MEDS ORDERED: LORAZEPAM1 MG PO (14:43)
[2020-06-21] MEDS ORDERED: OMNICEF300 MG PO (14:43)
[2020-06-21] MEDS ORDERED: PREDNISONE10 MG PO (14:47)
[2020-06-21 16:00] VITALS: BP 112/68
== END 2020-06-21 17:21 | disposition other institution (70) | DRG 291 ==
LOC: ED 15:11 → EDHOLD 18:30 → 4E 18:30
PROVIDERS: Emergency Medicine; Internal Medicine; Registered Nurse; ADMIT Internal Medicine; ATTEND Internal Medicine
DX: I13.0 Hypertensive heart and chronic kidney disease with heart failure and stage 1 through stage 4 chronic kidney disease, or unspecified chronic kidney disease (principal); I50.33 Acute on chronic diastolic (congestive) heart failure; N17.0 Acute kidney failure with tubular necrosis; J44.1 Chronic obstructive pulmonary disease with (acute) exacerbation; J96.10 Chronic respiratory failure, unspecified whether with hypoxia or hypercapnia; I48.21 Permanent atrial fibrillation; R73.9 Hyperglycemia, unspecified; D50.9 Iron deficiency anemia, unspecified; E83.41 Hypermagnesemia; G62.9 Polyneuropathy, unspecified; N18.30 Chronic kidney disease, stage 3 unspecified; F41.9 Anxiety disorder, unspecified; G89.29 Other chronic pain; M54.9 Dorsalgia, unspecified; G25.81 Restless legs syndrome; K44.9 Diaphragmatic hernia without obstruction or gangrene; Z91.041 Radiographic dye allergy status; Z91.048 Other nonmedicinal substance allergy status; Z96.653 Presence of artificial knee joint, bilateral; Z90.11 Acquired absence of right breast and nipple; Z90.49 Acquired absence of other specified parts of digestive tract; Z83.6 Family history of other diseases of the respiratory system; Z83.79 Family history of other diseases of the digestive system; Z85.3 Personal history of malignant neoplasm of breast; Z79.899 Other long term (current) drug therapy; Z20.828 Contact with and (suspected) exposure to other viral communicable diseases

== ENCOUNTER 2020-07-17 09:45 | Inpatient (IN) | payer MEDICARE ==
[~2020-07-17] VITALS: Ht 162.5 cm; Wt 142.7 kg
[~2020-07-17 09:45] MED LIST changes: +ADVAIR HFA 230-12 GM INH; +MUCUS RELIEF600 MG PO; +OMNICEF300 MG PO; +Percocet 325 MG1 TAB PO
[2020-07-17 09:46] VITALS: BP 145/80
[2020-07-17 10:46] LABS: BASO % 0.3 % (0.0-1.0); EOS # 0.3 10*3/uL (0.0-0.4); EOS % 6.7 % (1.0-4.0); HEMATOCRIT 31.2 % (37.0-47.0); LYMPH # 1.5 10*3/uL (1.3-4.4); LYMPH % 40.9 % (27.0-41.0); MEAN CORPUSCULAR HGB CONC 27.9 g/dl (33.0-37.0); MEAN PLATELET VOLUME 9.1 fl (9.6-12.3); MONO # 0.4 10*3/uL (0.1-1.0); MONO % 10.8 % (3.0-9.0); NEUT # 1.5 10*3/uL (2.3-7.9); PLATELET COUNT AUTOMATED 225 10*3/uL (130-400); RED BLOOD COUNT 3.63 10*6/uL (4.10-5.10); RED CELL DISTRI WIDTH 17.6 % (0-14.5); WHITE BLOOD COUNT 3.7 10*3/uL (4.8-10.8)
[2020-07-17 11:09] LABS: ACT PARTIAL THROMBO TIME 21.8 SECONDS (20.0-32.1)
[2020-07-17 11:20] LABS: ALBUMIN 2.6 gm/dl (3.1-4.5); ALKALINE PHOSPHATASE 58 U/L (45-117); BUN 14 mg/dl (7-24); CHLORIDE 109 mmol/L (98-107); CREATININE 0.93 mg/dL (0.55-1.02); POTASSIUM 4.2 mmol/L (3.5-5.1); SGOT/AST 23 IU/L (3-35); SGPT/ALT 20 U/L (12-78); SODIUM 143 mmol/L (136-145); TOTAL PROTEIN 6.6 gm/dL (6.4-8.2)
[2020-07-17 11:28] LABS: TROPONIN I < 0.015 ng/ml (<0.045)
[2020-07-17 12:05] VITALS: BP 149/78
[2020-07-17 12:53] LABS: BILIRUBIN Negative (Negative); BLOOD 2+ (Negative); CLARITY Clear (Clear); COLOR Yellow (Yellow); GLUCOSE Negative (Negative); KETONE Negative (Negative); LEUKO ESTERASE Negative (Negative); NITRITE Negative (Negative)
[2020-07-17 13:00] VITALS: BP 142/76
[2020-07-17 13:04] LABS: RBC 51-100 rbc/hpf (0-2); WBC 0-2 wbc/hpf (0-5)
[2020-07-17 13:42] LABS: ARTERIAL BLOOD GAS PH 7.359 (7.35-7.45)
[2020-07-17 17:05] VITALS: BP 139/68
--- NOTE | 2020-07-17 17:58 | NUR ---
PAIN MED GIVEN WAS EFFECTIVE FOR BACK PAIN. PT RESTING IN BED WITH SAFTEY PRECAUTIONS IN PLACE.
--- NOTE | 2020-07-17 20:06 | NUR ---
PT REQUESTING PAIN MEDICATION OF PEROCET FOR HER BACK.PT ADVISED IT IS EARLY FOR HER MEDICATION.PT REPOSITIONED IN BED.
[2020-07-17 20:10] VITALS: BP 115/83
--- NOTE | 2020-07-17 21:00 | NUR ---
Pt taken off a 6L NC and placed on a 50% venti mask at 15L. Pt is mouth breathing. SpO2 96%
--- NOTE | 2020-07-17 21:15 | NUR ---
PT PROVIDED BOX LUNCH.MEDICATED PER EMAR WITH PERCOCET.REQUESTING ZOFRAN
--- NOTE | 2020-07-17 21:16 | NUR ---
NURSE TO NURSE REPORT GIVEN TO THIS RN.
--- NOTE | 2020-07-17 22:27 | NUR ---
PT O2 SAT 93% ON VENTURI MASK.HR 115-120'S.PT REPOSITIONED IN BED.PT PLACED IN GOWN.
--- NOTE | 2020-07-17 22:52 | NUR ---
PT O2 SAT DECREASED TO 89% WITH VENTURI MASK.HR 115-120'S.RESIDENT DR RENDON MADE AWARE OF PT CONTINUED STRUGGLE TO KEEP PT O2 SAT TO REMAIN ABOVE 95%.
--- NOTE | 2020-07-17 23:14 | NUR ---
RESPIRATORY CONTACTED FOR BIPAP PER RESIDENT DR RENDON.
--- NOTE | 2020-07-17 23:30 | NUR ---
PT WAS ORDERED A BIPAP PER DR RENDON, PT WAS REFUSING TO WEAR. BIPAPS ARE LIMITED AT THIS TIME. PT WAS PLACED ON HFNC AT 15L SATTING 98% AND TOLERATING WELL. DR. RENDON IS AWARE PT IS NOT ON THE BIPAP.
[2020-07-18] VITALS (7 sets, daily range): BP systolic 117–134; BP diastolic 60–83
--- NOTE | 2020-07-18 00:16 | NUR ---
RESPIRATORY CONTACTED TO OBTAIN UPDATE OF BIPAP PLACEMENT.ADVISED BY RESPIRATORY PT REFUSED BIPAP AND PT WAS PLACED ON HIFLOW O2.RESPIRATORY MADE AWARE PT O2 SAT REMAIN 89-91% WITH THE HIGH FLOW O2.
--- NOTE | 2020-07-18 02:03 | NUR ---
PT VITALS REASSESSED.PT NYE BAD EMPTIED.PT DENIES ANY NEEDS AT THIS TIME.
--- NOTE | 2020-07-18 02:29 | NUR ---
PT REQUESTING PAIN MEDICATION FOR HER BACK.
--- NOTE | 2020-07-18 02:33 | NUR ---
PT MEDICATED PER EMAR WITH PERCOCET PO FOR BACK PAIN RATING 9/10.
--- NOTE | 2020-07-18 02:40 | NUR ---
THIS RN SPOKE WITH RESIDENT DR RENDON AND HE STATES RESPIRATORY DID NOTIFY HIM OF PT REFUSAL FOR BIPAP.
--- NOTE | 2020-07-18 03:28 | NUR ---
PT TO ROOM 409 AT THIS TIME.
--- NOTE | 2020-07-18 03:36 | NUR ---
Time: 335 A 75 year old FEMALE admitted to 4E under services of PRIETO RIZO DO, Pt. arrived via stretcher from ER. Chief complaint: SHORTNESS OF BREATH. JULIANNA PETERSEN
--- NOTE | 2020-07-18 04:01 | NUR ---
WAS TOLD BY SUPERVISOR ROAD ADMINISTRATORTIMMY SALGADO THAT DR SIMMS IS AWARE OF HIS CONSULT. PATIENT STATES HE DID SEE HER IN THE ER YESTERDAY.
--- NOTE | 2020-07-18 04:41 | NUR ---
PATIENT DOES NOT KNOW HOME MEDICATIONS AND DID NOT BRING A LIST FROM HOME. WILL PASS ON FOR DAYLIGHT SHIFT TO CALL PHARMACY.
--- NOTE | 2020-07-18 05:43 | NUR ---
DR SIMMS CALLED AND IS AWARE OF CONSULT. MADE AWARE OF PATIENT BEING ON 12 LITERS HIGH FLOW NC.
[2020-07-18 06:35] LABS: HEMATOCRIT 33.6 % (37.0-47.0); LYMPH # 0.8 10*3/uL (1.3-4.4); LYMPH % 38.5 % (27.0-41.0); MEAN CELL VOLUME 83.2 fl (81.0-99.0); MEAN CORPUSCULAR HGB 23.8 pg (27.0-31.0); MEAN CORPUSCULAR HGB CONC 28.6 g/dl (33.0-37.0); MEAN PLATELET VOLUME 8.8 fl (9.6-12.3); MONO # 0.3 10*3/uL (0.1-1.0); MONO % 13.6 % (3.0-9.0); PLATELET COUNT AUTOMATED 256 10*3/uL (130-400); RED BLOOD COUNT 4.04 10*6/uL (4.10-5.10); RED CELL DISTRI WIDTH 17.2 % (0-14.5); WHITE BLOOD COUNT 2.1 10*3/uL (4.8-10.8)
[2020-07-18 06:51] LABS: ALBUMIN 2.6 gm/dl (3.1-4.5); CREATININE 1.13 mg/dL (0.55-1.02); POTASSIUM 4.2 mmol/L (3.5-5.1)
--- NOTE | 2020-07-18 07:47 | NUR ---
OT NOTE Occupational therapy order and nursing screen received. Will follow up with patient for completion of an OT evaluation. Thank you. Colette Morel, OTR/L
--- NOTE | 2020-07-18 09:00 | NUR ---
Office Receptionist spoke to patient via phone. Patient states lives at home with her son. There are no steps in the home. Physician: Dr. Ayden Bryant [facility] Patient's level of ADLs: MINIMAL ASSIST Patient has working utilities: yes DME: cane, walker, shower chair, O2 @ 3L nc, portable O2 tanks, nebulizer, O2 supplier [facility] Follow-up physician's appointment after d/c: will be made by the hospitalist nurse director upon discharge Does patient want to access PORTAL?: no Discharge plan discussed with patient. She lives at home with her son. Her daughter lives across the street and is a PT. She is independent in her ADLs and uses a cane or a walker for ambulation. Discussed short term rehab and she declines. Discussed home health care services and she states she currently has [facility] and would like to resume those services upon discharge. CM will continue to follow for any discharge planning needs. When medically stable she will be discharged to home with the resumption of her [facility] services. She states her son or her daughter can provide transportation upon discharge. REGLA MONROY
--- NOTE | 2020-07-18 09:46 | NUR ---
MEDICATED WITH PERCOCET PER OPRDER AND REQUEST FOR BACK PAIN.
--- NOTE | 2020-07-18 14:54 | NUR ---
PT PLACED ON BIPAP. PT WAS EXPLANED TO THE IMPORTANCE OF WEARING BIPAP, SHE AGREED TO WEAR FOR 2 HRS WHEN ABG'S ARE TO BE DONE. 23/05-, HR 79, SPO2 99%
[2020-07-18 16:15] LABS: ABG BASE EXCESS 5.6 mmol/L (-2.0-2.0); ARTERIAL BLOOD GAS PH 7.398 (7.35-7.45)
--- NOTE | 2020-07-18 21:30 | NUR ---
PATIENT TITRATED DOWN TO 8L HIGH FLOW AT THIS TIME.
[2020-07-19] VITALS: BP 126/81; BP 157/89
--- NOTE | 2020-07-19 01:26 | NUR ---
PRN PERCOCET GIVEN FOR PT COMPLAINTS OF BACK PAIN RATING IT 7/10. CALL LIGHT WITHIN REACH, WILL MONITOR
--- NOTE | 2020-07-19 02:20 | NUR ---
PRN PERCOCET APPEARS EFFECTIVE, PT SLEEPING
--- NOTE | 2020-07-19 04:35 | NUR ---
24 HR chart check completed.
[2020-07-19] MEDS ORDERED: WARFARIN SODIUM5 MG PO (04:51)
[2020-07-19] MEDS ORDERED: KENALOG 0.1% LO60 ML T (04:52)
--- NOTE | 2020-07-19 05:08 | NUR ---
DISCUSSED PATIENTS MED REC WITH HER AT THIS TIME. WENT OVER LIST PROVIDED BY RICHARD GERBER. PATIENT STATED THAT SHE DOES NOT TAKE ANY BLOOD THINNERS THEY "MAKE ME LOOK LIKE A BEET". SHE STATED SHE TAKES MIRAPEX THAT IS NOT ON THE LIST. SHE ALSO STATED THAT SHE TAKES MUCINEX WELL.
[2020-07-19] MEDS ORDERED: MUCINEX1200 M1 PO (05:10)
--- NOTE | 2020-07-19 05:15 | NUR ---
DISCUSSED WITH DR. RENDON PATIENTS MEDICATION CHANGES. GABAPENTIN, PERCOCET AND ATIVAN. HE STATED IT WAS OK TO CHANGE THE MEDICATIONS LISTED ABOVE TO 900MG TID GABAPENTIN, 10/325 OF PERCOET Q4H, AND TO CONTINUE 2MG OF BID PRN ATIVAN
[2020-07-19] MEDS ORDERED: NEURONTIN300 MG PO (05:17)
[2020-07-19] MEDS ORDERED: PERCOCET 10-321 EACH PO (05:18)
--- NOTE | 2020-07-19 05:25 | NUR ---
PATIENT TITRATED DOWN TO 6L NC AT THIS TIME. PATIENTS PULSE OX BETWEEN 93-96%
[2020-07-19 07:02] LABS: HEMATOCRIT 36.7 % (37.0-47.0); LYMPH # 0.8 10*3/uL (1.3-4.4); LYMPH % 23.9 % (27.0-41.0); MEAN CELL VOLUME 84.4 fl (81.0-99.0); MEAN CORPUSCULAR HGB 23.2 pg (27.0-31.0); MEAN CORPUSCULAR HGB CONC 27.5 g/dl (33.0-37.0); MEAN PLATELET VOLUME 9.7 fl (9.6-12.3); MONO # 0.6 10*3/uL (0.1-1.0); MONO % 16.7 % (3.0-9.0); NEUT # 2.1 10*3/uL (2.3-7.9); NEUT % 58.8 % (47.0-73.0); PLATELET COUNT AUTOMATED 328 10*3/uL (130-400); RED BLOOD COUNT 4.35 10*6/uL (4.10-5.10); RED CELL DISTRI WIDTH 17.5 % (0-14.5); WHITE BLOOD COUNT 3.5 10*3/uL (4.8-10.8)
[2020-07-19 07:23] LABS: ALBUMIN 2.9 gm/dl (3.1-4.5); CREATININE 1.42 mg/dL (0.55-1.02); POTASSIUM 4.1 mmol/L (3.5-5.1); TOTAL PROTEIN 7.4 gm/dL (6.4-8.2)
[2020-07-19 08:00] VITALS: BP 132/90
--- NOTE | 2020-07-19 09:00 | NUR ---
CM spoke to patient via phone. No new needs or request at this time. Per notes patient remains on 6L nc. Discharge plan is for the patient to return home with the resumption of her [facility] services.
[2020-07-19 12:00] VITALS: BP 135/62
--- NOTE | 2020-07-19 13:15 | NUR ---
PATIENT MEDICATED WITH 2 PERCOCET PER ORDER FOR COMPLAINTS OF BACK PAIN 02/16. WILL MONITOR.
--- NOTE | 2020-07-19 14:15 | NUR ---
PER PATIENT - PAIN PILL HAS BEEN EFFECTIVE. NO FURTHER COMPLAINTS.
--- NOTE | 2020-07-19 14:45 | NUR ---
PHYSICAL THERAPY Physical Therapy evaluation completed on 4th floor with full evaluation to follow. Recommend physical therapy per plan of care and home w son and HH if continues to progress well upon discharge. Thank you for this referral. Jenniffer Arzate PT
--- NOTE | 2020-07-19 14:50 | NUR ---
Occupational Therapy evaluation completed on FOUR with full evaluation to follow. Recommend occupational therapy per plan of care and home with HH with continued family supervision assist upon discharge. Thank you for this referral. Colette Morel OTR/L
[2020-07-19 16:00] VITALS: BP 113/87
--- NOTE | 2020-07-19 18:45 | NUR ---
PT MEDICATED WITH PO PERCOCET AT THIS TIME FOR COMPLAINTS OF PAIN IN BACK 02/16. WILL MONITOPR.
[2020-07-19 20:00] VITALS: BP 104/67
--- NOTE | 2020-07-19 20:18 | NUR ---
PRN ATIVAN GIVEN AT THIS TIME FOR C/O ANXIETY. CALL LIGHT IS WITHIN REACH.
--- NOTE | 2020-07-19 21:00 | NUR ---
PATIENT TITRATED DOWN TO 5L HIGH FLOW. MAINTAINING 96%. PATIENT DENIES SOB. CALL LIGHT WTIHIN REACH, WILL MONITOR
[2020-07-20] VITALS: BP 115/69
--- NOTE | 2020-07-20 01:44 | NUR ---
PATIENT TITRATED DOWN TO 4L AND IS NOW ON A REGULAR CANNULA. PULSE OX MAINTAINING 95%. PATIENT REQUESTED THE O2 WITHOUT HUMIDITY. PATIENT DENIES SHORTNESS OF BREATH AND STATES THE REGULAR CANNULA FEELS BETTER.
--- NOTE | 2020-07-20 02:23 | NUR ---
24 HR chart check completed.
--- NOTE | 2020-07-20 06:16 | NUR ---
PRN PERCOCET GIVEN FOR PT COMPLAINTS OF BACK PAIN RATING IT 8/10. CALL LIGHT WTIHIN REACH, WILL MONITOR
[2020-07-20 06:58] LABS: HEMATOCRIT 35.7 % (37.0-47.0); LYMPH # 1.1 10*3/uL (1.3-4.4); LYMPH % 36.4 % (27.0-41.0); MEAN CELL VOLUME 83.2 fl (81.0-99.0); MEAN CORPUSCULAR HGB 22.8 pg (27.0-31.0); MEAN CORPUSCULAR HGB CONC 27.5 g/dl (33.0-37.0); MEAN PLATELET VOLUME 9.3 fl (9.6-12.3); MONO # 0.5 10*3/uL (0.1-1.0); MONO % 17.7 % (3.0-9.0); NEUT # 1.4 10*3/uL (2.3-7.9); NEUT % 45.6 % (47.0-73.0); PLATELET COUNT AUTOMATED 343 10*3/uL (130-400); RED BLOOD COUNT 4.29 10*6/uL (4.10-5.10); RED CELL DISTRI WIDTH 17.6 % (0-14.5); WHITE BLOOD COUNT 3.1 10*3/uL (4.8-10.8)
--- NOTE | 2020-07-20 07:12 | NUR ---
PRN MEDICATION EFFECTIVE PER PT
[2020-07-20 07:25] LABS: ALBUMIN 2.7 gm/dl (3.1-4.5); CREATININE 1.26 mg/dL (0.55-1.02); POTASSIUM 4.3 mmol/L (3.5-5.1)
[2020-07-20 07:30] LABS: TOTAL PROTEIN 6.9 gm/dL (6.4-8.2)
[2020-07-20 08:00] VITALS: BP 132/89
--- NOTE | 2020-07-20 09:00 | NUR ---
CM spoke to patient via phone. No new needs or request at this time. Per notes patient remains on 4L nc. Discharge plan is for the patient to return home with the resumption of her [facility] services.
--- NOTE | 2020-07-20 11:00 | NUR ---
Faxed home health resumption order along with clinical to [facility]
[2020-07-20 12:00] VITALS: BP 116/84
--- NOTE | 2020-07-20 13:13 | NUR ---
OT NOTE Pt was seen this P.M. 1:1 for 19 minute OT session. Upon arrival pt was sitting upright in the recliner. Pt identified by name and and had no complaints at this time. Pt presented to therapy with 4L-O2 via Nc which she remained on throughout the entire session. Pt completed sit to stand from recliner with CGA for safety. Functional mobility completed to the bathroom with SBA and use of w/w. There she transferred on/off standard commode with SBA and use of w/w. Clothing management and toilet hygiene completed with supervision. She then stood sink side while washing her hands with SBA. Functional mobility completed back to the EOB. There she doffed gown and donned new underpants and pants with Ruby for inital start over her feet and new shirt independent. Sit to stand completed from bed level with SBA to complete clothing management with SBA. Standing pivot completed to the recliner with SBA. Throughout session pt's SpO2 was within functional limits. Pt was left sitting upright in the recliner with call light in hand, tray table in place, and phone in reach. Continue with rec D/C plan to home with home health. Throughout entire session airborne precautions were maintained. DARBY Weems/Mk
--- NOTE | 2020-07-20 13:13 | NUR ---
NYE DISCONTINUED - PATIENT TOLERATED WELL. 750CC OF CLEAR STRAW URINE OUTPUT AT THIS TIME.
--- NOTE | 2020-07-20 13:28 | NUR ---
PHYSICAL THERAPY Patient presented to therapy in ramírez[ine in bed with head of bed elevated and bed alarm off. Patient gives inforemd consent for treatment. Patient was identified by name and on wristband. Patient was on 4 LITERS OF SPo2 via nasal canula. Patient performed supine to sitting on EOB with SBA. Patient sat on EOB SBA. Patient completed STS from EOB with SBA. Patient ambulated with Wh Walker and CGA for 110' x 1 with no LOB and no SOB with O2 sats recorded WNL on 4 liters. Patient STS < > low chair with SBA. Patient sat in bedside chair and performed bilateral LE ther ex 2 x 10 reps each including LAQs, marches, heel/toe raises and hip abd for strengthening the LEs. Patient was left in bedside chair with call light within reach, LEs in low position and O2 connected to wall outlet with 4 liters of spO2. Patient was 1:1 with this HAND SAMPLE MAKER for 17 minutes total. MARSHA SMITH HAND SAMPLE MAKER
--- NOTE | 2020-07-20 15:38 | NUR ---
OCCUPATIONAL THERAPY CO-SIGN I approve of the Occupational Therapy notes written above. TAYLOR CRUZ, OTR/L
--- NOTE | 2020-07-20 15:51 | NUR ---
PHYSICAL THERAPY CO-SIGN I approve of the Physical Therapy notes written above. Jenniffer Arzate PT
[2020-07-20 16:00] VITALS: BP 112/62
--- NOTE | 2020-07-20 19:27 | NUR ---
CHART CHECK COMPLETE.
[2020-07-20 20:00] VITALS: BP 110/84
[2020-07-21] VITALS: BP 127/86
[2020-07-21 07:33] LABS: HEMATOCRIT 35.4 % (37.0-47.0); LYMPH # 1.5 10*3/uL (1.3-4.4); LYMPH % 48.9 % (27.0-41.0); MEAN CELL VOLUME 83.5 fl (81.0-99.0); MEAN CORPUSCULAR HGB 23.3 pg (27.0-31.0); MEAN PLATELET VOLUME 9.9 fl (9.6-12.3); MONO # 0.5 10*3/uL (0.1-1.0); MONO % 17.2 % (3.0-9.0); NEUT % 33.3 % (47.0-73.0); NUCLEATED RED BLOOD CELL 0.6 % (0.0-0.0); PLATELET COUNT AUTOMATED 349 10*3/uL (130-400); RED BLOOD COUNT 4.24 10*6/uL (4.10-5.10); RED CELL DISTRI WIDTH 17.6 % (0-14.5); WHITE BLOOD COUNT 3.1 10*3/uL (4.8-10.8)
[2020-07-21 08:00] VITALS: BP 145/86
[2020-07-21 08:01] LABS: ALBUMIN 2.7 gm/dl (3.1-4.5); CREATININE 1.19 mg/dL (0.55-1.02); POTASSIUM 4.1 mmol/L (3.5-5.1); TOTAL PROTEIN 6.7 gm/dL (6.4-8.2)
--- NOTE | 2020-07-21 10:55 | NUR ---
PT SEEN AND ASSESSED. PT RESTING IN HER CHAIR. PT IS TEARFUL BECAUSE SHE IS VOIDING FREQUENTLY AND DUE TO EQUIPMENT IS HAVING A HARD TIME GETTING TO THE BR WITHOUT HAVING AN ACCIDENT. BSC OBTAINED FOR PT COMFORT AND SAFETY. PT EX[RESSES GRATITIUDE. PLAN OF CARE AND MEDICATION DISCUSSED.
[2020-07-21 12:00] VITALS: BP 122/63
[2020-07-21] MEDS ORDERED: DECADRON6 M1 PO ×2 (15:32)
[2020-07-21] MEDS ORDERED: LASIX40 MG PO (15:32)
[2020-07-21 16:00] VITALS: BP 118/60
--- NOTE | 2020-07-21 16:45 | NUR ---
PT FOR DISCHARGE TO HOME TO CARE OF ARNALDO;F AND FAMILY. PT DC WITH HOME O2 @4LNC WHICH IS HER BASELINE. IV SITE REMOVED HEMOSTASIS MAINYAINED AND SITE SECURED WITH 2X2 AND TAPE. REVIEWED DISCHARGE INSTRUCTIONS WITH PT AND PT VERBALIZES HER UNDERSTANDING OF INSTRUCTIONS INCLUDING MEDICATIONS.
--- NOTE | 2020-07-23 07:47 | NUR ---
Faxed discharge instructions and summary to [facility]
== END 2020-07-21 17:57 | disposition home health service (06) | DRG 177 ==
LOC: ED 09:45 → EDHOLD 11:28 → 4E 11:28 → EDHOLD 11:43 → 4E 07-18 02:01
PROVIDERS: Family Medicine; Internal Medicine; Internal Medicine Critical Care Medicine; ADMIT Internal Medicine; ATTEND Internal Medicine
PROC: 5A0945A Assistance with Respiratory Ventilation, 24-96 Consecutive Hours, High Flow/Velocity Cannula (ICD-10-PCS; principal; 2020-07-18)
PROC: 5A09357 Assistance with Respiratory Ventilation, Less than 24 Consecutive Hours, Continuous Positive Airway Pressure (ICD-10-PCS; 2020-07-18)
DX: U07.1 COVID-19 (principal); J96.21 Acute and chronic respiratory failure with hypoxia; J96.22 Acute and chronic respiratory failure with hypercapnia; J18.9 Pneumonia, unspecified organism; I50.23 Acute on chronic systolic (congestive) heart failure; E44.0 Moderate protein-calorie malnutrition; I13.0 Hypertensive heart and chronic kidney disease with heart failure and stage 1 through stage 4 chronic kidney disease, or unspecified chronic kidney disease; D68.59 Other primary thrombophilia; Z68.43 Body mass index [BMI] 50.0-59.9, adult; I48.91 Unspecified atrial fibrillation; F41.9 Anxiety disorder, unspecified; G89.29 Other chronic pain; M54.9 Dorsalgia, unspecified; N18.30 Chronic kidney disease, stage 3 unspecified; G25.81 Restless legs syndrome; K57.30 Diverticulosis of large intestine without perforation or abscess without bleeding; E83.41 Hypermagnesemia; E87.8 Other disorders of electrolyte and fluid balance, not elsewhere classified; G62.9 Polyneuropathy, unspecified; R79.82 Elevated C-reactive protein (CRP); Z66 Do not resuscitate; Z51.5 Encounter for palliative care; E66.01 Morbid (severe) obesity due to excess calories; Z91.041 Radiographic dye allergy status; Z91.048 Other nonmedicinal substance allergy status; Z96.653 Presence of artificial knee joint, bilateral; Z90.49 Acquired absence of other specified parts of digestive tract; Z90.710 Acquired absence of both cervix and uterus; Z90.11 Acquired absence of right breast and nipple; Z83.79 Family history of other diseases of the digestive system; Z83.6 Family history of other diseases of the respiratory system; Z85.3 Personal history of malignant neoplasm of breast; Z79.899 Other long term (current) drug therapy

== ENCOUNTER 2020-08-05 07:34 | Inpatient (IN) | payer MEDICARE ==
[~2020-08-05] VITALS: Ht 165.1 cm; Wt 138.8 kg
[2020-08-05] VITALS (17 sets, daily range): BP systolic 87–114; BP diastolic 44–87
[~2020-08-05 07:34] MED LIST changes: +DECADRON6 M1 PO; +KENALOG 0.1% LO60 ML T; +MUCINEX1200 M1 PO; +WARFARIN SODIUM5 MG PO
[2020-08-05 08:09] LABS: HEMATOCRIT 37.4 % (37.0-47.0); MEAN CORPUSCULAR HGB 22.6 pg (27.0-31.0); MEAN CORPUSCULAR HGB CONC 27.5 g/dl (33.0-37.0); NUCLEATED RED BLOOD CELL 0.2 10*3/uL (0.0-0.0); NUCLEATED RED BLOOD CELL 0.7 % (0.0-0.0); PLATELET COUNT AUTOMATED 263 10*3/uL (130-400); RED BLOOD COUNT 4.56 10*6/uL (4.10-5.10); RED CELL DISTRI WIDTH 17.9 % (0-14.5); WHITE BLOOD COUNT 20.3 10*3/uL (4.8-10.8)
[2020-08-05 08:21] LABS: ACT PARTIAL THROMBO TIME 26.4 SECONDS (20.0-32.1); INTERNATIONAL NORM RATIO 1.3 (2.0-3.5)
[2020-08-05 08:24] LABS: ALBUMIN 2.6 gm/dl (3.1-4.5); CREATININE 2.45 mg/dL (0.55-1.02); POTASSIUM 4.8 mmol/L (3.5-5.1); TOTAL PROTEIN 7.8 gm/dL (6.4-8.2)
[2020-08-05 08:31] LABS: THYROID STIM HORMONE (HS) 1.47 uIU/ml (0.358-4.75)
[2020-08-05 08:32] LABS: TROPONIN I 0.059 ng/ml (<0.045)
[2020-08-05 08:51] LABS: ABG BASE EXCESS -0.6 mmol/L (-2.0-2.0); ARTERIAL BLOOD GAS PH 7.449 (7.35-7.45)
[2020-08-05 09:09] LABS: BASOPHILS 1 % (0-1); PLATELET SUFFICIENCY NORMAL (NORMAL); TOTAL CELLS COUNTED 100 #CELLS
--- NOTE | 2020-08-05 09:15 | NUR ---
PT TO CT. PHYSICIAN AWARE OF PATIENTS VS.
--- NOTE | 2020-08-05 09:48 | NUR ---
PT PLACED ON BIPAP PER RESPIRATORY 40% WITH BACK UP RATE 12. SPO2 93%
--- NOTE | 2020-08-05 10:10 | NUR ---
PT PLACED ON BIPAP PER DR. KOCH. 07/15 40% BR 12.
--- NOTE | 2020-08-05 10:34 | NUR ---
PT INCREASED TO 8L PER HFNC WITH RESPIRATORY AT BEDSIDE. PT 88-90%.
--- NOTE | 2020-08-05 11:28 | NUR ---
PT TAKEN OFF BIPAP. PT PLACED ON OPTIFLOW PER DR. KOCH. O2 70% WITH LITER FLOW OF 55.
--- NOTE | 2020-08-05 12:02 | NUR ---
DR BOYKIN REQUESTING HOSPICE CONSULT
--- NOTE | 2020-08-05 12:03 | NUR ---
[facility]F MECHANIC WILL CONTACT CASE MGT FOR HOSPICE CONSULT
--- NOTE | 2020-08-05 13:07 | NUR ---
SPOKE WITH HOSPICE CONCERNING ADMISSION UNDER HOSPICE CARE
--- NOTE | 2020-08-05 13:34 | NUR ---
PT REQUESTING PAIN MEDICATION THIS TIME. RN NOTIFIED.
--- NOTE | 2020-08-05 14:17 | NUR ---
Spoke with Oralia the Nurse assistant front end manager at [facility]. Advised That Dr. Neumann Team has recommended at referral to Hospice. Provided with Contact information for Family. Faxed Referral to [facility] Attn: Oralia. [phone]. Oralia will reach out to Family to discuss Hospice and Admission Criteria and Meet with Family to Sign Admission Paperwork. Call Placed to Dr. Brown Salesperson [employer] Equipment Phone and Dr. Neumann team is Informed of Hospice Possible Admission today or Early A.M. Case Management will Follow tommorow. Office Machine Repair Shop Supervisor Demetria and Nurse in the ER notified of Above.
--- NOTE | 2020-08-05 17:30 | NUR ---
CARDIZEM INCREASED TO 10
--- NOTE | 2020-08-05 20:35 | NUR ---
PT IS RESTING IN BED WATCHING TV. VSS.
--- NOTE | 2020-08-05 20:55 | NUR ---
ADMISSION ASSESSMENT COMPLETED.
--- NOTE | 2020-08-05 22:17 | NUR ---
CARDIZEM DRIP INCREASED TO 15.
--- NOTE | 2020-08-05 22:51 | NUR ---
PT WAS REPOSITIONED IN BED. VSS. PT HAD ME DIM LIGHTS FOR COMFORT. WILL CONTINUE TO MONITOR.
[2020-08-06 02:04] VITALS: BP 113/40
--- NOTE | 2020-08-06 02:05 | NUR ---
PT STATES SHE IS HAVING PAIN. PT PROVIDED NORCO PER PHYSICIAN ORDERS. PT IS RESTING IN BED.
--- NOTE | 2020-08-06 03:35 | NUR ---
PT RESTING IN BED WITH EYES CLOSED, CALL LIGHT WITHIN REACH, NO ACUTE DISTRESS NOTED UPON THIS RN EXITING THE ROOM
[2020-08-06 04:40] VITALS: BP 91/58
--- NOTE | 2020-08-06 04:41 | NUR ---
PT USING BED GRACE, NO ACUTE DISTRESS NOTED UPON THIS RN EXITING THE ROOM, CALL LIGHT WITHIN REACH
[2020-08-06 05:42] LABS: ALBUMIN 2.2 gm/dl (3.1-4.5); CREATININE 2.66 mg/dL (0.55-1.02)
[2020-08-06 05:43] LABS: TOTAL PROTEIN 6.8 gm/dL (6.4-8.2)
[2020-08-06 05:52] VITALS: BP 87/63
[2020-08-06 06:25] LABS: ACT PARTIAL THROMBO TIME 29.7 SECONDS (20.0-32.1); INTERNATIONAL NORM RATIO 1.4 (2.0-3.5)
[2020-08-06 06:26] LABS: BASO # 0.1 10*3/uL (0.0-0.1); BASO % 0.4 % (0.0-1.0); EOS # 0.1 10*3/uL (0.0-0.4); EOS % 0.8 % (1.0-4.0); HEMATOCRIT 34.2 % (37.0-47.0); LYMPH # 1.4 10*3/uL (1.3-4.4); LYMPH % 10.5 % (27.0-41.0); MEAN CELL VOLUME 83.4 fl (81.0-99.0); MEAN CORPUSCULAR HGB 22.4 pg (27.0-31.0); MEAN CORPUSCULAR HGB CONC 26.9 g/dl (33.0-37.0); MEAN PLATELET VOLUME 11.1 fl (9.6-12.3); MONO # 1.4 10*3/uL (0.1-1.0); MONO % 10.3 % (3.0-9.0); NEUT # 10.3 10*3/uL (2.3-7.9); NEUT % 77.2 % (47.0-73.0); NUCLEATED RED BLOOD CELL 0.1 10*3/uL (0.0-0.0); NUCLEATED RED BLOOD CELL 0.8 % (0.0-0.0); PLATELET COUNT AUTOMATED 220 10*3/uL (130-400); RED CELL DISTRI WIDTH 18.1 % (0-14.5); WHITE BLOOD COUNT 13.4 10*3/uL (4.8-10.8)
[2020-08-06 08:00] VITALS: BP 115/52
--- NOTE | 2020-08-06 08:21 | NUR ---
RESPIRATORY THERAPY TECHNICIAN [facility] DOREEN IS SPEAKING WITH FAMILY ABOUT A TIME TO MEET AND ADMIT THIS PATIENT TO INPATIENT HOSPICE SERVICES. DOREEN WILL LET THIS RESPIRATORY THERAPY TECHNICIAN KNOW WHEN A TIME HAS BEEN SET.
--- NOTE | 2020-08-06 09:24 | NUR ---
PT REQUESTING "MY PERCOCET FOR MY CHEST PAIN"
--- NOTE | 2020-08-06 09:50 | NUR ---
DOREEN FROM [facility] WILL BE MEETING WITH PATIENTS SON SHORTLY IN ED. POSTMASTER RELIEF NOTIFIED KENTRELL ARNDT.
--- NOTE | 2020-08-06 09:55 | NUR ---
NOTIFIED DR RAMOS PT REQUESTING "HOME PERCOCET"
--- NOTE | 2020-08-06 11:57 | NUR ---
HOSPICE AT BEDSIDE AT THIS TIME TO ASSESS PT. WILL CONTINUE TO MONITOR.
--- NOTE | 2020-08-06 12:41 | NUR ---
WAITING ON RESPIRATORY TO ARRIVE TO TAKE PT TO FLOOR AT THIS TIME. JULIO WARNER WAS CONTACTED AND STATES SHE IS READY.
--- NOTE | 2020-08-06 14:09 | NUR ---
SPOKE WITH DR. BOYKIN IN REGARDS TO PT OT WANTING ANY DRIPS OR JAVA MOBILE DEVELOPER. WE ARE WAITING ON PT TO BE PLACED ON IN PATIENT HOSPICE.
[2020-08-06 16:00] VITALS: BP 103/57
--- NOTE | 2020-08-06 18:06 | NUR ---
PERCOCET GIVEN FOR C/O BACK PAIN. RATES 10/10 ON PAIN SCALE. WILL MONITOR.
--- NOTE | 2020-08-06 18:34 | NUR ---
SPOKE WITH [facility] TO LET THEM KNOW PT IS REFUSING ALL DRIPS. WOULD LIKE PAIN MEDICATION WHEN SHE NEEDS IT, SHE WILL ASK FOR IT.
--- NOTE | 2020-08-06 20:25 | NUR ---
MEDICATED WITH PRN MORPHINE FOR SEVERE GENERALIZED PAIN.
--- NOTE | 2020-08-06 21:15 | NUR ---
DR TORRE MADE AWARE OF HOSPICE RECOMMENDATIONS FOUND IN PATIENT'S CHART. SHE STATES SHE WILL BE AROUND TO THE FLOOR SOON AND WILL LOOK AT THEM.
--- NOTE | 2020-08-06 21:25 | NUR ---
MEDICATION NOT EFFECTIVE PER PATIENT
--- NOTE | 2020-08-06 21:49 | NUR ---
DR BOYKIN CALLED IN TO CHECK ON PATIENT. ORDER FROM HOSPICE RECOMMENDATIONS READ TO DOCTOR BOYKIN. ORDERS TAKEN TO START HOSPICE RECOMMENDATIONS
== END 2020-08-06 22:07 | disposition hospice, home (50) | DRG 871 ==
LOC: ED 07:34 → EDHOLD 10:58 → 4E 10:58 → EDHOLD 14:37 → 4E 08-06 12:07
PROVIDERS: Emergency Medicine; Internal Medicine; ADMIT Student in an Organized Health Care Education/Training Program; ATTEND Student in an Organized Health Care Education/Training Program
PROC: 5A0935A Assistance with Respiratory Ventilation, Less than 24 Consecutive Hours, High Flow/Velocity Cannula (ICD-10-PCS; principal; 2020-08-05)
PROC: 5A09357 Assistance with Respiratory Ventilation, Less than 24 Consecutive Hours, Continuous Positive Airway Pressure (ICD-10-PCS; 2020-08-05)
DX: A41.9 Sepsis, unspecified organism (principal); R65.21 Severe sepsis with septic shock; J18.9 Pneumonia, unspecified organism; N17.0 Acute kidney failure with tubular necrosis; E43 Unspecified severe protein-calorie malnutrition; I26.09 Other pulmonary embolism with acute cor pulmonale; I50.33 Acute on chronic diastolic (congestive) heart failure; D68.69 Other thrombophilia; J96.11 Chronic respiratory failure with hypoxia; I13.0 Hypertensive heart and chronic kidney disease with heart failure and stage 1 through stage 4 chronic kidney disease, or unspecified chronic kidney disease; J44.0 Chronic obstructive pulmonary disease with (acute) lower respiratory infection; E87.2 Acidosis; I24.8 Other forms of acute ischemic heart disease; I38 Endocarditis, valve unspecified; K57.90 Diverticulosis of intestine, part unspecified, without perforation or abscess without bleeding; Z66 Do not resuscitate; I48.91 Unspecified atrial fibrillation; E83.41 Hypermagnesemia; J44.9 Chronic obstructive pulmonary disease, unspecified; Z51.5 Encounter for palliative care; N18.30 Chronic kidney disease, stage 3 unspecified; M19.90 Unspecified osteoarthritis, unspecified site; G62.9 Polyneuropathy, unspecified; F41.9 Anxiety disorder, unspecified; Z96.653 Presence of artificial knee joint, bilateral; R73.9 Hyperglycemia, unspecified; D64.9 Anemia, unspecified; Z20.828 Contact with and (suspected) exposure to other viral communicable diseases; E66.01 Morbid (severe) obesity due to excess calories; Z79.01 Long term (current) use of anticoagulants; Z82.5 Family history of asthma and other chronic lower respiratory diseases; Z91.041 Radiographic dye allergy status; Z88.8 Allergy status to other drugs, medicaments and biological substances; Z79.899 Other long term (current) drug therapy; Z79.51 Long term (current) use of inhaled steroids; Z90.49 Acquired absence of other specified parts of digestive tract; Z90.11 Acquired absence of right breast and nipple; Z79.1 Long term (current) use of non-steroidal anti-inflammatories (NSAID)

== ENCOUNTER 2020-08-06 22:11 | Inpatient (IN) | payer OTHER, MEDICARE ==
[~2020-08-06] VITALS: Ht 165.1 cm; Wt 138.9 kg
[2020-08-06 20:00] VITALS: BP 98/45
--- NOTE | 2020-08-06 22:13 | NUR ---
Time: 2212 A 75 year old FEMALE admitted to under services of [facility]. JULIANNA PETERSEN
--- NOTE | 2020-08-06 22:13 | NUR ---
DR TORRE TO FLOOR TO GET HOSPICE RECOMMENDATIONS. MADE AWARE THAT DR BOYKIN CALLED IN TO CHECK ON PATIENT AND STATED TO START ALL HOSPICE RECOMMENDATIONS
--- NOTE | 2020-08-06 23:03 | NUR ---
PATIENT STATES SHE IS NOT READY FOR A MORPHINE DRIP YET AT THIS TIME. DR TORRE MADE AWARE. PAGE MADE OUT TO HOSPICE REGARDING THEIR RECOMMENDATIONS.
--- NOTE | 2020-08-06 23:09 | NUR ---
ARBEN FROM [facility] CALLED BACK AT THIS TIME. MADE HER AWARE OF PATIENT NOT WANTING A MORPHINE DRIP AT THIS TIME. ARBEN STATES IT IS OK TO CONTINUE TO GIVE THE PATIENT MORPHINE 2MG IV Q4H PRN, AND PERCOCET 5MG 2 TABS Q6H PRN SHE HAS BEEN TAKING. ATTEMPTED TO NOTIFY DR TORRE WITH NO ANSWER
--- NOTE | 2020-08-06 23:20 | NUR ---
DR BOYKIN CALLED IN TO CHECK ON PATIENT, ORDERS TAKEN
--- NOTE | 2020-08-06 23:52 | NUR ---
SPOKE WITH MILES AT [facility] REGARDING MEDICATIONS NOT BEING AVAILABLE TO PULL FROM [facility]
[2020-08-07] VITALS: BP 102/71
--- NOTE | 2020-08-07 02:48 | NUR ---
PATIENT RESTING IN BED WITH NO S/S OF DISTRESS. RESPS EASY AND REGULAR. BED IN LOWEST POSITION, CALL LIGHT IN REACH
--- NOTE | 2020-08-07 03:26 | NUR ---
MEDICATED WITH PRN MORPHINE FOR C/O ALL OVER PAIN
--- NOTE | 2020-08-07 04:19 | NUR ---
MEDICATION EFFECTIVE PER PATIENT. RESTING WELL
--- NOTE | 2020-08-07 07:41 | NUR ---
MORPHINE DRIP RETURNED TO PHARMACY WITH PHARMACNATHALY KIM
--- NOTE | 2020-08-07 09:00 | NUR ---
PATIENT HAS WILL NOTIFY FAMILY,DOCTOR,AND FOUNDRY MANAGER.
--- NOTE | 2020-08-07 09:04 | NUR ---
PATIENT PASSED AT 0900. NOTIFIED CLAIR SLAUGHTER AND THE WOOL SCOURER-JULIANNA JEWELL. WILL NOTIFY [facility] AND CALL FAMILY.
--- NOTE | 2020-08-07 09:09 | NUR ---
NOTIFIED FAMILY BARBARA-DAUGHTER AT 0908. SHE DOESN'T KNOW WHICH HOME TO SEND PATIENT YET. ADVISED HER TO CALL US AND LET US KNOW. ASKED HER IF THERE IS ANYONE I COULD CALL FOR HER. SHE STATED SHE WOULD CALL FAMILY. ALSO CALLED MARLENE AT [facility] AT 0909.
--- NOTE | 2020-08-07 09:20 | NUR ---
SPOKE TO [facility] AT ONE CALL. THEY RELEASED PATIENT WITH REFERENCE #[id number].
--- NOTE | 2020-08-07 12:41 | NUR ---
PATIENT TAKEN TO [facility].
== END 2020-08-07 09:00 | disposition expired | DRG 871 ==
LOC: 4E 22:11
PROVIDERS: ADMIT Internal Medicine; ATTEND Internal Medicine
DX: A41.9 Sepsis, unspecified organism (principal); R65.21 Severe sepsis with septic shock; J18.9 Pneumonia, unspecified organism; N17.0 Acute kidney failure with tubular necrosis; E43 Unspecified severe protein-calorie malnutrition; Z68.43 Body mass index [BMI] 50.0-59.9, adult; I48.91 Unspecified atrial fibrillation; D64.9 Anemia, unspecified; D72.829 Elevated white blood cell count, unspecified; I11.0 Hypertensive heart disease with heart failure; R73.9 Hyperglycemia, unspecified; E83.41 Hypermagnesemia; R77.8 Other specified abnormalities of plasma proteins; I50.9 Heart failure, unspecified; Z51.5 Encounter for palliative care; Z20.828 Contact with and (suspected) exposure to other viral communicable diseases; Z79.899 Other long term (current) drug therapy